=== PATIENT | male | born 1945 | race Caucasian/White ===

== ENCOUNTER → 2021-05-31 | Outpatient (CLI) | payer MEDICARE ==
--- NOTE | 2021-05-31 18:50 | CT ---
EXAMINATION TYPE: CT CervThoracic spine wo con DATE OF EXAM: 05/31/2021 COMPARISON: None HISTORY: Neck and back pain x 1 year with unsteady gait. TECHNIQUE: CT scan of the cervical and thoracic spine performed without contrast CT DLP: 1089 mGycm Automated exposure control for dose reduction was used. FINDINGS: The craniocervical junction is acutely maintained. Degenerative changes are present at the atlantoocc ipital and intra-axial joints. Cervical and thoracic curvatures are mildly scoliotic with preservation of cervical lordosis. There i s anterior translation of C4 over C5. There is slight posterior translation of C3 over C4. There is moderate to severe narrowing of the intervertebral spaces in the cervical spine extending fr om C3 through T1. This is most severe at C3-4, C5-6 and C6-7. There is mild bony spinal canal stenosi s at C5 and C6, the spinal canal at that level measures about 8 mm in AP dimension. There are disc os teophyte complexes at C3-4, C4-5, C5-6, C6-7 and C7-T1. There is also uncovertebral facet joint arthr opathy throughout the cervical spine. There is moderate severe narrowing of multiple bilateral neural foramina in the cervical spine which appears to be most severe bilaterally at C3-4 and C4-5. The thoracic spine intervertebral spaces are mildly to moderately narrowed throughout and there are b shanita spurs along the ventral aspect of the thoracic spine. No significant bony spinal canal stenosis i s seen in the thoracic spine. Mild facet joint arthropathy changes are seen in the mid and lower thor acic spine. The posterior soft tissue is without significant inflammation or edema. The prevertebral soft tissues are normal in thickness. Included airways are patent. Subsegmental atelectatic changes are seen in the included lungs. Heart does not appear to be enlarged. Coronary arterial calcifications are noted. The thyroid gland is not enlarged. Atherosclerotic calcifications are seen in the intrathoracic and abdominal aorta. The esophagus within the mid and upper chest has a thickened wall and a circumferential manner. There is a small gastroesophageal hiatal hernia. There are calcific plaques in the bilateral carotid arteries suboptimal evaluation due to lack of co ntrast. The right kidney is suboptimal in evaluation however appears enlarged. IMPRESSION: 1. MODERATE SEVERE DEGENERATIVE CHANGES IN THE CERVICAL AND THORACIC SPINE DESCRIBED IN BODY OF RE PORT. 2. RIGHT KIDNEY APPARENT ENLARGEMENT SUBOPTIMAL IN EVALUATION, CORRELATION WITH RENAL ULTRASOUND SILVA MMENDED FOR FURTHER EVALUATION.
== END | disposition home or self-care (01) ==
LOC: RADCTMAIN 14:35
PROVIDERS: ATTEND Orthopaedic Surgery
DX: M47.812 Spondylosis without myelopathy or radiculopathy, cervical region (principal); M47.814 Spondylosis without myelopathy or radiculopathy, thoracic region
CPT/HCPCS: 72125; 72128

== ENCOUNTER → 2021-07-02 | Outpatient (CLI) | payer MEDICARE ==
--- NOTE | 2021-07-02 10:51 | XR ---
EXAMINATION TYPE: XR chest 2V DATE OF EXAM: 07/02/2021 COMPARISON: none HISTORY: Shortness of breath TECHNIQUE: Frontal and lateral views of the chest are obtained. FINDINGS: Scattered senescent parenchymal changes noted. Hyperinflation compatible with COPD. No evidence for infiltrate. No evidence for atelectasis. Heart size is stable. Mediastinal structures are stable and grossly unremarkable. No evidence for hilar prominence. Degenerative changes dorsal spine. IMPRESSION: 1. No evidence for acute pulmonary disease.
== END | disposition home or self-care (01) ==
LOC: LABPAT 10:06
PROVIDERS: ATTEND Orthopaedic Surgery
DX: Z01.818 Encounter for other preprocedural examination (principal); M50.00 Cervical disc disorder with myelopathy, unspecified cervical region; M43.12 Spondylolisthesis, cervical region; R06.02 Shortness of breath; Z22.322 Carrier or suspected carrier of Methicillin resistant Staphylococcus aureus
CPT/HCPCS: 71046; 86850; 86900; 86901; 87070

== ENCOUNTER 2021-07-10 07:30 | Inpatient (IN) | payer MEDICARE ==
[2021-07-06 16:12] VITALS: BMI 27.3
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
[2021-07-16] MEDS ORDERED: DEXAMETHASONE SOD PHOSPHATE 4 MG/ML 1 ML VIAL IV ONE (15:21)
[2021-07-16] MEDS ORDERED: ONDANSETRON 4 MG/2 ML VIAL IVP ONE (15:21)
[2021-07-17] MEDS ORDERED: ACETAMINOPHEN TAB 500 MG TAB PO PRN (05:00)
[2021-07-17] MEDS ORDERED: ONDANSETRON 4 MG/2 ML VIAL IVP PRN (05:00)
[2021-07-17] MEDS ORDERED: GABAPENTIN 300 MG CAP PO PRN (05:00)
[2021-07-17] MEDS ORDERED: TRANEXAMIC ACID 1,000 MG in SODIUM CHLORIDE 0.9% 100 ML IVPB PRN ×4 (05:00)
[2021-07-17] MEDS ORDERED: LIDOCAINE 1% (10MG/ML) FOR IV START INTRADERMA ONE ×2 (06:45→06:50)
[2021-07-17] MEDS: LACTATED RINGERS 1,000 ML IV SCH ×2 (06:58→18:17)
[2021-07-17] MEDS ORDERED: HYDROmorphone 0.5 MG/0.5 ML SYRINGE IVP PRN ×2 (07:00→17:40)
--- NOTE | 2021-07-17 07:28 | P.PN ---
Progress Note - Text Progress Note Date: 07/17/21 H&P UPDATE: There have been no changes to the H&P in the last 30 days. Pt continues to have difficulty with ambulation, cannot hold on to objects, is off balance and is having today positive Lehermettes sign with electric shocks down his spine when he moves his neck. We discussed risks and benefits again of surgery as outlined in risk review and he is ready and willing to proceed. He will get arterial line and central line by anesthesia. HIs is in waiting room and will be here for him. We discussed ICU stay overnight and he was agreeable. All questions were answered. Consent was confirmed, we will perform anterior C3-7 ACDF and posterior C2-T4 decompression and fusion. He agreed.
[2021-07-17] MEDS ORDERED: fentaNYL (PF) 50 MCG/ML 2 ML AMP ONE (07:37)
[2021-07-17] MEDS ORDERED: HYDROmorphone (PF) 1 MG/ML ONE (07:37)
[2021-07-17] MEDS ORDERED: ceFAZolin 1,000 MG VIAL ONE (07:37)
[2021-07-17] MEDS ORDERED: GLYCOPYRROLATE 0.2 MG/ML 2 ML VIAL ONE (07:37)
[2021-07-17] MEDS ORDERED: PROPOFOL 10 MG/ML 20 ML VIAL IV ONE (07:37)
[2021-07-17] MEDS ORDERED: DEXAMETHASONE SOD PHOSPHATE 10 MG/ML 1 ML VIAL ONE (07:37)
[2021-07-17] MEDS ORDERED: ROCURONIUM 10 MG/ML (5 ML VIAL) IV ONE (07:37)
[2021-07-17] MEDS ORDERED: PHENYLEPHRINE-0.9% NACL SYG 1,000 MCG/10 ML SYRINGE ONE (07:37)
[2021-07-17] MEDS ORDERED: ePHEDrine SULFATE/0.9% NACL/PF 50 MG/5 ML SYRINGE IV ONE (07:37)
[2021-07-17] MEDS ORDERED: SUCCINYLCHOLINE CHLORIDE 100 MG/5 ML SYR IV ONE (07:37)
[2021-07-17] MEDS ORDERED: TRANEXAMIC ACID 1,000 MG/10 ML VIAL ONE (07:37)
[2021-07-17] MEDS ORDERED: MIDAZOLAM 2 MG/2 ML VIAL ONE (07:37)
[2021-07-17] MEDS ORDERED: ENALAPRILAT 1.25 MG/ML 1 ML VIAL ONE (07:37)
[2021-07-17] MEDS ORDERED: KETAMINE 10 MG/ML 20 ML VIAL ONE (07:37)
[2021-07-17] MEDS ORDERED: ALBUMIN HUMAN 5% (25gm) 500 ML VIAL IVPB ONE (07:37)
[2021-07-17] MEDS ORDERED: SODIUM CHLORIDE 0.9% 100 ML BAG ONE ×2 (07:37)
[2021-07-17] MEDS ORDERED: THROMBIN (BOVINE) 5,000 UNIT VIAL MISCELLANE ONE (09:17)
[2021-07-17] MEDS ORDERED: GELATIN SPONGE,ABSORB (LARGE) 1 EACH SPONGE MISCELLANE ONE (09:17)
[2021-07-17] MEDS ORDERED: LACTATED RINGERS 1,000 ML IV ONE ×7 (09:22→17:21)
[2021-07-17 10:15] LABS: Basophils % (A) 0 %; Eosinophils # (A) 0.1 k/uL (0-0.7); Eosinophils % (A) 1 %; HCT 34.2 % (39.0-53.0); HGB 12.3 gm/dL (13.0-17.5); Hyperchromasia Slight; Lymphocytes # (A) 1.2 k/uL (1.0-4.8); Lymphocytes % (A) 16 %; MCH 31.4 pg (25.0-35.0); MCV 87.2 fL (80.0-100.0); Mean Platelet Volume 7.4; Monocytes # (A) 0.4 k/uL (0-1.0); Monocytes % (A) 5 %; Neutrophils # (A) 5.8 k/uL (1.3-7.7); Neutrophils % (A) 77 %; Platelet Count 234 k/uL (150-450); RBC 3.93 m/uL (4.30-5.90); RDW 13.8 % (11.5-15.5); WBC 7.6 k/uL (3.8-10.6)
[2021-07-17 10:19] LABS: African American GFR (CKD) >90 (>60 ml/min/1.73 sqM); Anion Gap 7 mmol/L; Blood Urea Nitrogen 12 mg/dL (9-20); Calcium 8.9 mg/dL (8.4-10.2); Carbon Dioxide 22 mmol/L (22-30); Chloride 110 mmol/L (98-107); Glucose 149 mg/dL (74-99); Non-African American GFR(CKD) >90 (>60 ml/min/1.73 sqM); Potassium 3.6 mmol/L (3.5-5.1); Sodium 139 mmol/L (137-145)
--- NOTE | 2021-07-17 12:56 | FL ---
EXAMINATION TYPE: FL guidance operating room, XR cervical spine limited DATE OF EXAM: 07/17/2021 FLUOROSCOPY Fluoroscopy time of 1 minute 6 seconds was used during ACDF. 11 images document the procedure. Multip le fluoroscopic images are obtained. Metallic instrument is initially noted at the anterior C4-C5 dis c interspace than with ACDF placed between C3 C3-C6 levels.
[2021-07-17] MEDS ORDERED: LIDOCAINE 2%-EPI 1:100,000 20 ML VIAL SQ ONE (13:15)
[2021-07-17 15:27] LABS: ABG Base Excess -7.8 mmol/L; ABG HCO3 19 mmol/L (21-25); ABG Oxygen Saturation 95.5 % (94-97); ABG PCO2 40 mmHg (35-45); ABG PH 7.29 (7.35-7.45); ABG PO2 80 mmHg (83-108); ABG TCO2 20 mmol/L (19-24); Allen Test Performed? Yes
[2021-07-17] MEDS ORDERED: ceFAZolin 1,000 MG in SODIUM CHLORIDE 0.9% 1,000 ML IRRIGATION ONE (15:31)
[2021-07-17 15:32] LABS: Basophils % (A) 0 %; Eosinophils % (A) 0 %; HCT 28.8 % (39.0-53.0); HGB 10.3 gm/dL (13.0-17.5); Hyperchromasia Slight; Lymphocytes # (A) 0.8 k/uL (1.0-4.8); Lymphocytes % (A) 6 %; MCH 31.4 pg (25.0-35.0); MCHC 35.7 g/dL (31.0-37.0); MCV 87.8 fL (80.0-100.0); Mean Platelet Volume 7.2; Monocytes # (A) 0.5 k/uL (0-1.0); Monocytes % (A) 4 %; Neutrophils # (A) 11.2 k/uL (1.3-7.7); Neutrophils % (A) 89 %; Platelet Count 233 k/uL (150-450); RBC 3.28 m/uL (4.30-5.90); RDW 13.7 % (11.5-15.5); WBC 12.5 k/uL (3.8-10.6)
[2021-07-17] MEDS ORDERED: VANCOMYCIN 1,000 MG VIAL MISCELLANE ONE (15:54)
[2021-07-17] MEDS ORDERED: SENNOSIDES-DOCUSATE SODIUM 1 EACH TAB PO PRN (17:40)
[2021-07-17] MEDS ORDERED: propofoL 100 ML IV ONE (17:48)
--- NOTE | 2021-07-17 18:02 | FL ---
EXAMINATION TYPE: FL guidance operating room DATE OF EXAM: 07/17/2021 FLUOROSCOPY Fluoroscopy time of 1 minute 49 seconds was used during cervical fusion. 11 image/s document/s the raf wade.
[2021-07-17 18:04] LABS: Glucose,Whole Blood 196 mg/dL (75-99)
--- NOTE | 2021-07-17 18:27 | P.PN ---
Progress Note - Text Progress Note Date: 07/17/21 Brief Post Op: Surgeon: Zofia Pre op dx; cervical myelopathy severe cervical stenosis cervical spondylosis Post op dx: Same Procedure: Stage I anterior cervical discectomy and fusion C3 to C6. stage II posterior cervical decompression fusion C2 to T2 Anesthesia: GETA EBL: 500 Fluids: 5000 UO: 500 Dispo: Stable to ICU Post op Plan: Patient to remain intubated overnight for prolonged recovery and extubation in the morning as well as for blood pressure control Maintain MAPs above 80 ICU management Post operative noncontrasted CT scan once extubated Encourage ambulation tomorrow IS 10x/hr Teds/SCDs Pain control Hard cervical collar at all times Record Drain output
--- NOTE | 2021-07-17 18:30 | XR ---
EXAMINATION TYPE: XR chest 1V portable DATE OF EXAM: 07/17/2021 COMPARISON: 07/02/2021 HISTORY: Preop TECHNIQUE: Single view FINDINGS: Heart and mediastinum are normal. There is some linear consolidation and atelectasis behind the heart in the left lower lobe. The other lung mack are clear. There is left jugular catheter wi th tip in the superior vena cava. There is multilevel cervical spine fusion surgery. There are chest leads. IMPRESSION: There is some new linear infiltrate and atelectasis left lower lobe compared to old exam.
[2021-07-17] MEDS ORDERED: DEXAMETHASONE SOD PHOSPHATE 10 MG/ML 1 ML VIAL IV PRN (18:32)
[2021-07-17 18:56] LABS: ABG Base Excess -3.6 mmol/L; ABG HCO3 22 mmol/L (21-25); ABG Oxygen Saturation 97.1 % (94-97); ABG PCO2 37 mmHg (35-45); ABG PH 7.38 (7.35-7.45); ABG PO2 83 mmHg (83-108); ABG TCO2 23 mmol/L (19-24); Allen Test Performed? Yes
--- NOTE | 2021-07-17 19:09 | XR ---
EXAMINATION TYPE: XR cervical spine limited DATE OF EXAM: 07/17/2021 COMPARISON: NONE HISTORY: Fusion surgery TECHNIQUE: 9 views FINDINGS: 9 fluoroscopic images were obtained in the operating room that show placement of rods and s crews fusing posteriorly the cervical spine from the level of C2-T1 vertebra. IMPRESSION: No complicating process seen.
[2021-07-17] MEDS: DEXAMETHASONE SOD PHOSPHATE 10 MG/ML 1 ML VIAL IV SCH (19:12)
[2021-07-17] MEDS: HYDROmorphone 1 MG/ML 1 ML SYRINGE IVP PRN ×2 (19:13→22:05)
[2021-07-17] MEDS: GABAPENTIN 300 MG CAP PO SCH (21:18)
[2021-07-17] MEDS: HYDROcodone/APAP 10-325MG 1 EACH TAB PO PRN (21:33)
--- NOTE | 2021-07-17 22:06 | XR ---
EXAMINATION TYPE: XR chest 1V portable DATE OF EXAM: 07/17/2021 COMPARISON: Today HISTORY: Tube placed TECHNIQUE: FINDINGS: Endotracheal tube is 6 cm from the siobhan. There is nasogastric tube in the stomach. There is left ju gular catheter with tip in the superior vena cava. There is some infiltrate and atelectasis behind th e heart in the left lower lobe. Right lung is clear. There is no heart failure. IMPRESSION: Infiltrate and atelectasis left lower lobe without change.
[2021-07-17] MEDS: fentaNYL (PF). 1,000 MCG in SODIUM CHLORIDE 0.9% 80 ML IV SCH (23:27)
[2021-07-17 23:50] LABS: Glucose,Whole Blood 176 mg/dL (75-99)
[2021-07-18] MEDS: INSULIN ASPART (NovoLOG) 100 UNIT/ML VIAL SQ SCH ×4 (00:06→18:57)
[2021-07-18] MEDS: DEXAMETHASONE SOD PHOSPHATE 10 MG/ML 1 ML VIAL IV SCH ×4 (00:07→18:32)
[2021-07-18] MEDS: hydrALAZINE HCL 20 MG/ML 1 ML VIAL IVP PRN ×2 (01:08→13:27)
[2021-07-18] MEDS: fentaNYL (PF). 1,000 MCG in SODIUM CHLORIDE 0.9% 80 ML IV SCH ×2 (03:00→06:55)
--- NOTE | 2021-07-18 04:30 | CT ---
EXAMINATION TYPE: CT cervical spine wo con DATE OF EXAM: 07/18/2021 COMPARISON: HISTORY: Fusion surgery. CT DLP: 2115 mGycm Automated exposure control for dose reduction was used. Images obtained from the level of the skull base to T2 vertebra without contrast. There are rods and screws fusing posteriorly the cervical spine from the level of C2-T2 vertebra. The vertebra have normal alignment. There is narrowing of the C6-7 disc space. There is disc prosthesis noted at C3-4 and C4-5 and C5-6. I see no focal bone destruction. Vertebra have normal alignment. The re is endotracheal tube. There is no evidence of paraspinal mass. Exam limited by metal artifact. The re is multilevel laminectomy defect. There is some soft tissue air around the anterior neck and poste rior neck. There is infiltrate in the right upper lobe right paraspinal region noted. IMPRESSION: Postsurgical changes. Multilevel fusion surgery. Normal alignment. No focal bone destruction. There is noted some airspace infiltrate in the medial right upper lobe.
--- NOTE | 2021-07-18 04:38 | CT ---
EXAMINATION TYPE: CT thoracic spine wo con DATE OF EXAM: 07/18/2021 COMPARISON: 05/31/2021 HISTORY: s/p c2-t2 decompression fusion CT DLP: 2115 mGycm Automated exposure control for dose reduction was used. Images obtained from mid cervical spine through L1 vertebra without contrast. Thoracic vertebra have normal alignment. There is no compression fracture. There is multilevel senior mechanical project engineer ior fusion surgery in the cervical and thoracic spine from C2 to T2. There is metal artifact. There i s bilateral posterior pulmonary airspace infiltrates and atelectasis. I see no focal bone destruction . IMPRESSION: Fusion surgery in the cervical and upper thoracic spine. No complicating process seen involving the s pine. There is bilateral posterior pulmonary infiltrates and atelectasis.
[2021-07-18 04:49] LABS: Basophils % (A) 0 %; Eosinophils % (A) 0 %; HCT 29.6 % (39.0-53.0); HGB 10.4 gm/dL (13.0-17.5); Hyperchromasia Slight; Lymphocytes # (A) 0.4 k/uL (1.0-4.8); Lymphocytes % (A) 5 %; MCH 30.8 pg (25.0-35.0); MCHC 35.1 g/dL (31.0-37.0); MCV 87.9 fL (80.0-100.0); Mean Platelet Volume 8.3; Monocytes # (A) 0.2 k/uL (0-1.0); Monocytes % (A) 3 %; Neutrophils # (A) 8.5 k/uL (1.3-7.7); Neutrophils % (A) 93 %; Platelet Count 200 k/uL (150-450); RBC 3.36 m/uL (4.30-5.90); RDW 13.9 % (11.5-15.5); WBC 9.2 k/uL (3.8-10.6)
[2021-07-18 05:09] LABS: ABG Base Excess 1.9 mmol/L; ABG HCO3 26 mmol/L (21-25); ABG Oxygen Saturation 98.5 % (94-97); ABG PCO2 41 mmHg (35-45); ABG PH 7.42 (7.35-7.45); ABG PO2 97 mmHg (83-108); ABG TCO2 28 mmol/L (19-24); Allen Test Performed? Yes
[2021-07-18 05:39] LABS: Glucose,Whole Blood 164 mg/dL (75-99)
[2021-07-18 06:10] LABS: ALT 19 U/L (4-49); AST 30 U/L (17-59); African American GFR (CKD) >90 (>60 ml/min/1.73 sqM); Albumin 3.3 g/dL (3.5-5.0); Alkaline Phosphatase 54 U/L (38-126); Anion Gap 8 mmol/L; Blood Urea Nitrogen 10 mg/dL (9-20); Calcium 9.1 mg/dL (8.4-10.2); Carbon Dioxide 25 mmol/L (22-30); Chloride 107 mmol/L (98-107); Glucose 155 mg/dL (74-99); Non-African American GFR(CKD) >90 (>60 ml/min/1.73 sqM); Potassium 3.4 mmol/L (3.5-5.1); Sodium 140 mmol/L (137-145); Total Bilirubin 0.2 mg/dL (0.2-1.3); Total Protein 5.8 g/dL (6.3-8.2)
[2021-07-18] MEDS ORDERED: Potassium Replacement Protocol 1 EACH MISC MISCELLANE PRN (06:56)
[2021-07-18] MEDS: POTASSIUM BICARBONATE/CIT AC 20 MEQ TABLET.EFF NG-TUBE SCH ×2 (07:16→08:38)
--- NOTE | 2021-07-18 07:50 | P.PN ---
Subjective Progress Note Date: 07/18/21 Principal diagnosis: Cervical Myelopathy Patient seen and examined this morning with nursing at bedside is still sedated on fentanyl at this time however is currently being weaned from his vital cassandra needs. He is breathing and is on otherwise. Nursing states he did fairly well overnight some for blood pressure control issues however other than that he did well. Nursing states is moving all 4 extremities and is currently restrained and strength on his tube. Other issues overnight. Objective - Vital Signs Vital signs: Vital Signs Temp 97.9 F 07/18/21 04:00 Pulse 57 L 07/18/21 07:00 Resp 17 07/18/21 07:00 BP 135/70 07/18/21 07:00 Pulse Ox 97 07/18/21 07:00 Intake & Output 07/17/21 07/18/21 07/18/21 18:59 06:59 18:59 Intake Total 7127.607 654.159 59.499 Output Total 1130 2190 135 Balance 5997.607 -1535.841 -75.501 Weight 87.7 kg Intake: IV 7121 270 20 Lactated Ringers 1,000 ml 20 220 20 @ 20 mls/hr IV .Q24H [facility] Rx#:[id number] ceFAZolin 2 gm In Sodium 50 50 Chloride 0.9% 50 ml @ 100 mls/hr IVPB Q8HR [facility] Rx# :[id number] Intake, IV Titration 6.607 384.159 9.499 Amount fentaNYL (PF). 1,000 mcg 166.921 9.499 In Sodium Chloride 0.9% 80 ml @ 0.5 MCG/KG/HR 4. 13 mls/hr IV .Q24H [facility] Rx #:[id number] propofoL 1,000 mg In 6.607 217.238 Empty Bag 1 bag @ Titrate IV .Q0M [facility] Rx#: [id number] Other 30 Output: Drainage 150 60 Anterior Neck 40 10 Posterior Neck 110 50 Urine 580 2040 75 Estimated Blood Loss 550 Other: Voiding Method Indwelling Catheter ABP, PAP, CO, CI - Last Documented Arterial Blood Pressure 151/59 - Exam Patient is vented and sedated currently. Not following commands however he is about to be weaned from sedation at which point we can obtain and exam. Vital signs are currently stable - EENT Eyes: Present: PERRLA - Labs CBC & Chem 7: 07/18/21 04:26 07/18/21 04:26 Labs: Abnormal Lab Results - Last 24 Hours (Table) 07/17/21 07/17/21 07/17/21 Range/Units 09:20 09:20 15:18 WBC (3.8-10.6) k/uL RBC 3.93 L (4.30-5.90) m/uL Hgb 12.3 L (13.0-17.5) gm/dL Hct 34.2 L (39.0-53.0) % Neutrophils # (1.3-7.7) k/uL Lymphocytes # (1.0-4.8) k/uL ABG pH 7.29 L (7.35-7.45) ABG pO2 80 L (83-108) mmHg ABG HCO3 19 L (21-25) mmol/L ABG Total CO2 (19-24) mmol/L ABG O2 Saturation (94-97) % Potassium (3.5-5.1) mmol/L Chloride 110 H (98-107) mmol/L Creatinine 0.60 L (0.66-1.25) mg/dL Glucose 149 H (74-99) mg/dL POC Glucose (mg/dL) (75-99) mg/dL Total Protein (6.3-8.2) g/dL Albumin (3.5-5.0) g/dL 07/17/21 07/17/21 07/17/21 Range/Units 15:21 18:02 18:49 WBC 12.5 H (3.8-10.6) k/uL RBC 3.28 L (4.30-5.90) m/uL Hgb 10.3 L (13.0-17.5) gm/dL Hct 28.8 L (39.0-53.0) % Neutrophils # 11.2 H (1.3-7.7) k/uL Lymphocytes # 0.8 L (1.0-4.8) k/uL ABG pH (7.35-7.45) ABG pO2 (83-108) mmHg ABG HCO3 (21-25) mmol/L ABG Total CO2 (19-24) mmol/L ABG O2 Saturation 97.1 H (94-97) % Potassium (3.5-5.1) mmol/L Chloride (98-107) mmol/L Creatinine (0.66-1.25) mg/dL Glucose (74-99) mg/dL POC Glucose (mg/dL) 196 H (75-99) mg/dL Total Protein (6.3-8.2) g/dL Albumin (3.5-5.0) g/dL 07/17/21 07/18/21 07/18/21 Range/Units 23:49 04:26 04:26 WBC (3.8-10.6) k/uL RBC 3.36 L (4.30-5.90) m/uL Hgb 10.4 L (13.0-17.5) gm/dL Hct 29.6 L (39.0-53.0) % Neutrophils # 8.5 H (1.3-7.7) k/uL Lymphocytes # 0.4 L (1.0-4.8) k/uL ABG pH (7.35-7.45) ABG pO2 (83-108) mmHg ABG HCO3 (21-25) mmol/L ABG Total CO2 (19-24) mmol/L ABG O2 Saturation (94-97) % Potassium 3.4 L (3.5-5.1) mmol/L Chloride (98-107) mmol/L Creatinine 0.56 L (0.66-1.25) mg/dL Glucose 155 H (74-99) mg/dL POC Glucose (mg/dL) 176 H (75-99) mg/dL Total Protein 5.8 L (6.3-8.2) g/dL Albumin 3.3 L (3.5-5.0) g/dL 07/18/21 07/18/21 Range/Units 05:07 05:38 WBC (3.8-10.6) k/uL RBC (4.30-5.90) m/uL Hgb (13.0-17.5) gm/dL Hct (39.0-53.0) % Neutrophils # (1.3-7.7) k/uL Lymphocytes # (1.0-4.8) k/uL ABG pH (7.35-7.45) ABG pO2 (83-108) mmHg ABG HCO3 26 H (21-25) mmol/L ABG Total CO2 28 H (19-24) mmol/L ABG O2 Saturation 98.5 H (94-97) % Potassium (3.5-5.1) mmol/L Chloride (98-107) mmol/L Creatinine (0.66-1.25) mg/dL Glucose (74-99) mg/dL POC Glucose (mg/dL) 164 H (75-99) mg/dL Total Protein (6.3-8.2) g/dL Albumin (3.5-5.0) g/dL Assessment and Plan Assessment: 75-year-old male postoperative day 1 from two-stage anterior and posterior cervical fusion and decompression 1. C3-4; C4-5; C5-6 unstable spondylolisthesis 2. 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 Cervical myelopathy Nurick Grade 3 4. b/l UE weakness and radiculopathy 5. L4-5 spondylolisthesis Grade I unstable 6. .RLE radiculopathy 7. B/l LE weakness 8. Unsteady gait Plan: -Appreciate learning and development consultant and team management. -Appreciate ICU management -Activity: Ambulate QID, OOB all meals, up and about, limit lifting bending twisting to less than 5 lbs. Use walker or cane if needed for stability. -Daily PT/OT, increase ambulation strength and balance. -Hard cervical collar at all times when up and about okay to remove just sit ting in bed -Pain control: [Adequate at this time] -Meds: [reviewed] -GI ppx: senna, Miralax -DC arango when up and about, bedside commode if needed -DVT PPX: [OK to restart Heparin tonight] -Hygiene: Shower today. Maintain dressing clean and dry. Meticulous cleaning after BMs away from incision site -Drains: [Maintain for now. Record output] -Encourage IS 10x/hr -CT of the cervical and thoracic spine is reviewed. Good decompression and good hardware placement. Good reduction spondylolisthesis noted as well. No complicating issues noted -Dispo: [Pending]
[2021-07-18] MEDS: HYDROmorphone 1 MG/ML 1 ML SYRINGE IVP PRN ×4 (08:29→20:13)
[2021-07-18] MEDS: GABAPENTIN 300 MG CAP PO SCH ×2 (08:39→19:46)
--- NOTE | 2021-07-18 08:46 | XR ---
EXAMINATION TYPE: XR chest 1V portable DATE OF EXAM: 07/18/2021 HISTORY: Shortness of breath. COMPARISON: 07/17/2021 TECHNIQUE: Single view of the chest is submitted. FINDINGS: Endotracheal tube, left IJ central venous line and NG tube are all unchanged in position and appear t o be appropriately placed. Left lower lobe atelectasis and/or infiltrate unchanged. The heart is stable. Hilar and mediastinal structures are within normal limits. Degenerative changes are seen of the dorsal spine. IMPRESSION: 1. Stable chest.
[2021-07-18] MEDS: CYCLOBENZAPRINE 10 MG TAB PO PRN ×2 (09:31→18:32)
[2021-07-18] MEDS ORDERED: IPRATROPIUM-ALBUTEROL 3 ML NEB INHALATION PRN (10:04)
--- NOTE | 2021-07-18 10:05 | P.CNPUL ---
History of Present Illness Consult date: 07/18/21 Requesting physician: Gaurang Armijo Reason for consult: other Chief complaint: Severe spondylosis cervical spine, s/p cervical discectomy and decompressio History of present illness: 75-year-old white male patient with past medical history of severe spondylosis of the cervical spine with deformity and kyphosis of C3-7, with a bilateral upper extremity weakness and radiculopathy, unsteady gait, and a bilateral lower extremity weakness, status post anterior stage I cervical 3 to cervical 6 anterior cervical discectomy and fusion, and stage II cervical to to thoracic 2 posterior spinal instrumental fusion, who was admitted to the intensive care unit following surgery, and remained intubated and supported by mechanical ventilator overnight. His other past medical history is significant for hypertension, hyperlipidemia, osteoarthritis, spinal stenosis of lumbar region, depression, prostate disorder, former smoking history. Patient has had no acute events overnight, his current vent settings are assist control mode of ventilation with a rate of 16, tidal and was 450, FiO2 40% and PEEP of 5, this morning's blood gas shows pO2 of 97, pCO2 41, and pH of 7.42. Patient is on lactated Ringer's at 20 ML per hour, Diprivan is a 20 mics per kilo per minute, and fentanyl infusion is at 2 mics per kilo per minute. He is hemodynamically stable, not requiring any vasopressor support, in sinus mechanism with a rate of 57, this morning's chest x-ray shows ET tube, left IJ triple-lumen catheter and NG tube in appropriate positions, left lower lobe atelectasis and/or infiltrate, and degenerative changes seen of the dorsal spine. CT of the cervical spine was completed this morning, showing postsurgical changes, multilevel fusion surgery, normal alignment, no focal bone destruction, and some airspace infiltrate in the medial right upper lobe. CT of the thoracic spine without contrast showed fusion surgery in the cervical and upper thoracic spine no complicating process seen involving the spine, there were bilateral posterior pulmonary infiltrates and atelectasis. Today's blood work shows a white blood cell count of 9.2, hemoglobin is 10.4, sodium is 140, potassium is 3.4, chloride is 107, BUN of 10, creatinine 0.56. Patient has a cervical collar in place, anterior and posterior surgical incisions are clean dry and intact, covered with surgical dressings, anterior drain produced 40 mL of sanguinous output in the last 24 hours, and posterior drain with 110 of sanguinous output in the last 24 hours, urine output is adequate in the order of 75 250 ML per hour. Patient is receiving Kefzol 2 g every 24 hours per orthopedic surgery. Patient is opening eyes to voice, he is following command, he is having some discomfort and anxiety, appears to be in no acute distress. We will proceed with the weaning and extubation this morning Review of Systems All systems: negative Constitutional: Denies chills, Denies fever Eyes: denies blurred vision, denies pain Ears, nose, mouth and throat: Denies headache, Denies sore throat Cardiovascular: Denies chest pain, Denies shortness of breath Respiratory: Denies cough Gastrointestinal: Denies abdominal pain, Denies diarrhea, Denies nausea, Denies vomiting Musculoskeletal: Reports arm numbness/tingling, Reports gait dysfunction, Denies myalgias Integumentary: Denies pruritus, Denies rash Neurological: Denies numbness, Denies weakness Psychiatric: Denies anxiety, Denies depression Endocrine: Denies fatigue, Denies weight change Past Medical History Past Medical History: Hyperlipidemia, Hypertension, Osteoarthritis (OA), Prostate Disorder Additional Past Medical History / Comment(s): Enlarged Prostate. History of Any Multi-Drug Resistant Organisms: None Reported Past Surgical History: Tonsillectomy Past Anesthesia/Blood Transfusion Reactions: No Reported Reaction Past Psychological History: No Psychological Hx Reported Smoking Status: Former smoker Past Alcohol Use History: None Reported Additional Past Alcohol Use History / Comment(s): Quit smoking in his 20's. Past Drug Use History: Marijuana Additional Drug Use History / Comment(s): Daily Marijuana use, advised no use 24 hrs prior to procedure. - Past Family History Father Family Medical History: Cancer Medications and Allergies Home Medications Medication Instructions Recorded Confirmed Type Calcium Carbonate [Calcium] 1,000 mg PO DAILY 07/06/21 07/17/21 History Cholecalciferol [Vitamin D3 (25 25 mcg PO DAILY 07/06/21 07/17/21 History Mcg = 1000 Iu)] DULoxetine HCL [Cymbalta] 30 mg PO DAILY 07/06/21 07/17/21 History Ezetimibe [Zetia] 10 mg PO DAILY 07/06/21 07/17/21 History Ibuprofen [Motrin] 800 mg PO Q8H PRN 07/06/21 07/17/21 History Pravastatin Sodium [Pravachol] 10 mg PO HS 07/06/21 07/17/21 History Tamsulosin [Flomax] 0.4 mg PO HS 07/06/21 07/17/21 History amLODIPine [Norvasc] 10 mg PO QAM 07/06/21 07/17/21 History traMADol HCL 50 mg PO TID PRN 07/06/21 07/17/21 History Allergies Allergy/AdvReac Type Severity Reaction Status Date / Time codeine AdvReac Nausea & Verified 07/17/21 06:20 Vomiting Physical Exam Vitals: Vital Signs Temp Pulse Resp BP Pulse Ox 07/18/21 09:00 58 L 16 142/71 95 07/18/21 08:00 98.4 F 57 L 17 136/72 98 07/18/21 07:00 57 L 17 135/70 97 07/18/21 06:00 56 L 17 124/66 97 07/18/21 05:00 57 L 16 114/66 97 07/18/21 04:00 97.9 F 60 18 134/69 98 07/18/21 03:00 58 L 16 137/71 98 07/18/21 02:00 64 18 97 07/18/21 01:00 60 21 165/85 98 07/18/21 00:00 98.6 F 68 16 165/88 97 07/17/21 23:00 67 18 162/87 97 07/17/21 22:00 70 18 157/82 97 07/17/21 21:00 63 16 148/80 97 07/17/21 20:00 98 F 61 16 125/71 97 07/17/21 19:50 60 16 97 07/17/21 19:40 57 L 18 97 07/17/21 19:30 59 L 16 97 07/17/21 19:20 56 L 16 97 07/17/21 19:10 54 L 15 125/71 98 07/17/21 19:00 97.6 F 54 L 15 122/72 97 07/17/21 18:50 55 L 15 97 07/17/21 18:40 55 L 14 96 07/17/21 18:30 57 L 14 118/66 96 07/17/21 18:20 57 L 15 96 07/17/21 18:10 96.0 F L 56 L 14 95 Intake and Output 07/17/21 07/18/21 07/18/21 22:59 06:59 14:59 Intake Total 1192.123 539.643 147.961 Output Total 1950 1370 135 Balance -757.877 -830.357 12.961 Intake: IV 1131 210 20 Lactated Ringers 1,000 ml 80 160 20 @ 20 mls/hr IV .Q24H [facility] Rx#:[id number] ceFAZolin 2 gm In Sodium 50 50 Chloride 0.9% 50 ml @ 100 mls/hr IVPB Q8HR [facility] Rx# :[id number] Intake, IV Titration 61.123 329.643 97.961 Amount fentaNYL (PF). 1,000 mcg 166.921 9.499 In Sodium Chloride 0.9% 80 ml @ 0.5 MCG/KG/HR 4. 13 mls/hr IV .Q24H [facility] Rx #:[id number] propofoL 1,000 mg In 61.123 162.722 88.462 Empty Bag 1 bag @ Titrate IV .Q0M [facility] Rx#: [id number] Other 30 Output: Drainage 150 60 Anterior Neck 40 10 Posterior Neck 110 50 Urine 1250 1370 75 Estimated Blood Loss 550 Other: Voiding Method Indwelling Catheter Indwelling Catheter Weight 87.7 kg ABP, PAP, CO, CI - Last 8 Hours Arterial Blood Pressure 129/54 Arterial Blood Pressure 155/60 Arterial Blood Pressure 151/59 Arterial Blood Pressure 148/58 Arterial Blood Pressure 137/56 Arterial Blood Pressure 131/54 Arterial Blood Pressure 141/58 Arterial Blood Pressure 145/63 GENERAL EXAM: Somnolent, but opens eyes to voice, 75-year-old white male, intubated, on assist-control mode of ventilation with the FiO2 40% and PEEP of 5, on small amount of Diprivan at 20 mics per kilo per minute, and fentanyl is at 2 mics per kilo per minute comfortable in no apparent distress. HEAD: Normocephalic/atraumatic. EYES: Normal reaction of pupils, equal size. Conjunctiva pink, sclera white. NOSE: Clear with pink turbinates. THROAT: No erythema or exudates. NECK: No masses, no JVD, no thyroid enlargement, no adenopathy. Patient has a cervical collar in place, anterior and posterior surgical incisions are clean dry and , covered with surgical dressings, anterior and posterior drains are in place, compressed and draining with small to moderate amount of sanguinous output CHEST: No chest wall deformity. Symmetrical expansion. LUNGS: Equal air entry with no crackles, wheeze, rhonchi or dullness. CVS: Regular rate and rhythm, normal S1 and S2, no gallops, no murmurs, no rubs ABDOMEN: Soft, nontender. No hepatosplenomegaly, normal bowel sounds, no guarding or rigidity. EXTREMITIES: No clubbing, no edema, no cyanosis, 2+ pulses and upper and lower extremities. MUSCULOSKELETAL: Muscle strength and tone normal. SPINE: No scoliosis or deformity SKIN: No rashes CENTRAL NERVOUS SYSTEM: Sleepy but arousable. No focal deficits, tone is normal in all 4 extremities. Results - Laboratory Findings CBC and BMP: 07/18/21 04:26 07/18/21 04:26 ABG ABG pH 7.42 (7.35-7.45) 07/18/21 05:07 ABG pCO2 41 mmHg (35-45) 07/18/21 05:07 ABG pO2 97 mmHg (83-108) 07/18/21 05:07 ABG O2 Saturation 98.5 % (94-97) H 07/18/21 05:07 Abnormal lab findings: Abnormal Labs 07/17/21 07/17/21 07/17/21 09:20 09:20 15:18 WBC RBC 3.93 L Hgb 12.3 L Hct 34.2 L Neutrophils # Lymphocytes # ABG pH 7.29 L ABG pO2 80 L ABG HCO3 19 L ABG Total CO2 ABG O2 Saturation Potassium Chloride 110 H Creatinine 0.60 L Glucose 149 H POC Glucose (mg/dL) Total Protein Albumin 07/17/21 07/17/21 07/17/21 15:21 18:02 18:49 WBC 12.5 H RBC 3.28 L Hgb 10.3 L Hct 28.8 L Neutrophils # 11.2 H Lymphocytes # 0.8 L ABG pH ABG pO2 ABG HCO3 ABG Total CO2 ABG O2 Saturation 97.1 H Potassium Chloride Creatinine Glucose POC Glucose (mg/dL) 196 H Total Protein Albumin 07/17/21 07/18/21 07/18/21 23:49 04:26 04:26 WBC RBC 3.36 L Hgb 10.4 L Hct 29.6 L Neutrophils # 8.5 H Lymphocytes # 0.4 L ABG pH ABG pO2 ABG HCO3 ABG Total CO2 ABG O2 Saturation Potassium 3.4 L Chloride Creatinine 0.56 L Glucose 155 H POC Glucose (mg/dL) 176 H Total Protein 5.8 L Albumin 3.3 L 07/18/21 07/18/21 05:07 05:38 WBC RBC Hgb Hct Neutrophils # Lymphocytes # ABG pH ABG pO2 ABG HCO3 26 H ABG Total CO2 28 H ABG O2 Saturation 98.5 H Potassium Chloride Creatinine Glucose POC Glucose (mg/dL) 164 H Total Protein Albumin - Diagnostic Findings Chest x-ray: report reviewed, image reviewed Additional studies: CT of the cervical and thoracic spine results reviewed Assessment and Plan Plan: Assessment: #1. Cervical myelopathy, C3-4; C5-6 unstable spondylolisthesis, status post stage I Cervical 3 to Cervical 7 anterior cervical discectomy and fusion, and a stage II cervical to to thoracic for posterior spinal instrumented fusion with a nerve integrity monitoring, postoperative day #1 #2. Routine postoperative ventilator management, we'll proceed with weaning and extubation this morning #3. Unsteady gait, arm weakness, related to cervical spondylolisthesis #4. Hypertension #5. Hyperlipidemia #6. Enlarged prostate #7. Former smoker #8. Daily marijuana use #9. History of major depressive episodes #10. Osteoarthritis Plan: We'll proceed with spontaneous awakening trial Proceed with a spontaneous breathing trial, pressure-support of 5 Patient is having some anxiety, we'll just give him a very short breathing trial, and proceed with extubation Encourage deep breathing and coughing We'll discontinue final infusion May use when necessary Dilaudid for pain control Continue antibiotics per orthopedic surgery Breathing treatments as needed May proceed with clear liquid diet if passes bedside swallow evaluation in 6 hours We'll continue close monitoring in intensive care unit Glucose monitoring every 6 hours and sliding scale Humalog DVT prophylaxis, GI prophylaxis I performed a history & physical examination of the patient and discussed their management with my nurse practitioner, Shelly Charles. I reviewed the nurse practitioner's note and agree with the documented findings and plan of care. Lung sounds are positive for diminished breath sounds throughout the lung mack. The findings and the impression was discussed with the patient. I attest to the documentation by the nurse practitioner. Time with Patient: Greater than 30
[2021-07-18] MEDS ORDERED: ONDANSETRON 4 MG/2 ML VIAL IVP PRN (13:28)
[2021-07-18] MEDS: HYDROcodone/APAP 5-325MG 1 EACH TAB PO PRN (13:40)
[2021-07-18] MEDS: amLODIPine 10 MG TAB PO SCH (13:41)
--- NOTE | 2021-07-18 14:23 | P.CONS ---
History of Present Illness - Reason for Consult Consult date: 07/18/21 (delayed charting seen at 1115) htn Requesting physician: Gaurang Armijo - Chief Complaint neck pain - History of Present Illness Patient is a 75-year-old male with a past medical history of hypertension, dyslipidemia, enlarged prostate, and osteoarthritis who presented for elective C3 through 3 6 4 spondylolisthesis. He is in the ICU and has been extubated. Patient seen and examined at bedside. He report that he is having some neck pain, nausea, vomiting, lightheadedness, and dizziness. He overall doesn't feel well and is terrible. No recent cough, cold, fever, flu Pertinent positives and negatives as discussed in HPI, a complete review of systems was performed and all other systems are negative. General: non toxic, no distress, appears at stated age Derm: warm, dry Head: atraumatic, normocephalic, symmetric Eyes: EOMI, no lid lag, anicteric sclera, pupils equal round reactive to light ENT: Nose and ears atraumatic, no thrush, no pharyngeal erythema Neck: No thyromegaly, no cervical lymphadenopathy, trachea midline, supple Mouth: no lip lesion, mucus membranes moist Cardiovascular: S1S2 reg, no murmur, positive posterior tibial pulse bilateral, trace edema bilateral thighs, capillary refill less than 2 seconds Lungs: clear to ascultation bilateral, no ronchi, no rales, no wheeze, no accessory muscle use Abdominal: soft, nontender to palpation, no guarding, no appreciable organomegaly, normal bowel sounds Ext: Cervical collar in place, no gross muscle atrophy, muscle strength muscle strength 4 out of 5 in bilateral upper and lower extremities likely limited secondary to pain, no contractures Neuro: CN II-XI grossly intact, light touch intact all 4 extremities, finger to nose within normal limits, Psych: Alert, oriented, appropriate affect Patient is a 75-year-old male status post anterior and posterior cervical fusion with decompression Acute blood loss anemia, anticipated and expected outcome of surgery -Follow CBC -No indication for transfusion at this time Hypertension -Mildly elevated secondary to pain -Norvasc - as needed oral hydralazine Dyslipidemia -Pravachol -Zetia BPH -Flomax Thank you for allowing us to participate in the care of this pleasant patient. Do not hesitate to contact us with questions. Someone can be reached from the [facility] hospitalist group all hours of the day at [phone] or via [employer]. Past Medical History Past Medical History: Hyperlipidemia, Hypertension, Osteoarthritis (OA), Prostate Disorder Additional Past Medical History / Comment(s): Enlarged Prostate. History of Any Multi-Drug Resistant Organisms: None Reported Past Surgical History: Tonsillectomy Past Anesthesia/Blood Transfusion Reactions: No Reported Reaction Past Psychological History: No Psychological Hx Reported Smoking Status: Former smoker Past Alcohol Use History: None Reported Additional Past Alcohol Use History / Comment(s): Quit smoking in his 20's. Past Drug Use History: Marijuana Additional Drug Use History / Comment(s): Daily Marijuana use, advised no use 24 hrs prior to procedure. - Past Family History Father Family Medical History: Cancer Medications and Allergies Home Medications Medication Instructions Recorded Confirmed Type Calcium Carbonate [Calcium] 1,000 mg PO DAILY 07/06/21 07/17/21 History Cholecalciferol [Vitamin D3 (25 25 mcg PO DAILY 07/06/21 07/17/21 History Mcg = 1000 Iu)] DULoxetine HCL [Cymbalta] 30 mg PO DAILY 07/06/21 07/17/21 History Ezetimibe [Zetia] 10 mg PO DAILY 07/06/21 07/17/21 History Ibuprofen [Motrin] 800 mg PO Q8H PRN 07/06/21 07/17/21 History Pravastatin Sodium [Pravachol] 10 mg PO HS 07/06/21 07/17/21 History Tamsulosin [Flomax] 0.4 mg PO HS 07/06/21 07/17/21 History amLODIPine [Norvasc] 10 mg PO QAM 07/06/21 07/17/21 History traMADol HCL 50 mg PO TID PRN 07/06/21 07/17/21 History Allergies Allergy/AdvReac Type Severity Reaction Status Date / Time codeine AdvReac Nausea & Verified 07/17/21 06:20 Vomiting Physical Exam Osteopathic Statement: *. No significant issues noted on an osteopathic structural exam other than those noted in the History and Physical/Consult. Vitals: Vital Signs Temp Pulse Resp BP Pulse Ox 07/18/21 12:00 98.6 F 112 H 12 96 07/18/21 11:00 112 H 18 96 07/18/21 10:00 121 H 8 L 92 L 07/18/21 09:00 58 L 16 142/71 95 07/18/21 08:00 98.4 F 57 L 17 136/72 98 07/18/21 07:00 57 L 17 135/70 97 07/18/21 06:00 56 L 17 124/66 97 07/18/21 05:00 57 L 16 114/66 97 07/18/21 04:00 97.9 F 60 18 134/69 98 07/18/21 03:00 58 L 16 137/71 98 07/18/21 02:00 64 18 97 07/18/21 01:00 60 21 165/85 98 07/18/21 00:00 98.6 F 68 16 165/88 97 07/17/21 23:00 67 18 162/87 97 07/17/21 22:00 70 18 157/82 97 07/17/21 21:00 63 16 148/80 97 07/17/21 20:00 98 F 61 16 125/71 97 07/17/21 19:50 60 16 97 07/17/21 19:40 57 L 18 97 07/17/21 19:30 59 L 16 97 07/17/21 19:20 56 L 16 97 07/17/21 19:10 54 L 15 125/71 98 07/17/21 19:00 97.6 F 54 L 15 122/72 97 07/17/21 18:50 55 L 15 97 07/17/21 18:40 55 L 14 96 07/17/21 18:30 57 L 14 118/66 96 07/17/21 18:20 57 L 15 96 07/17/21 18:10 96.0 F L 56 L 14 95 Intake and Output 07/17/21 07/18/21 07/18/21 22:59 06:59 14:59 Intake Total 1192.123 539.643 247.961 Output Total 1950 1370 350 Balance -757.877 -830.357 -102.039 Intake: IV 1131 210 120 Lactated Ringers 1,000 ml 80 160 120 @ 20 mls/hr IV .Q24H [facility] Rx#:[id number] ceFAZolin 2 gm In Sodium 50 50 Chloride 0.9% 50 ml @ 100 mls/hr IVPB Q8HR [facility] Rx# :[id number] Intake, IV Titration 61.123 329.643 97.961 Amount fentaNYL (PF). 1,000 mcg 166.921 9.499 In Sodium Chloride 0.9% 80 ml @ 0.5 MCG/KG/HR 4. 13 mls/hr IV .Q24H [facility] Rx #:[id number] propofoL 1,000 mg In 61.123 162.722 88.462 Empty Bag 1 bag @ Titrate IV .Q0M [facility] Rx#: [id number] Other 30 Output: Drainage 150 60 Anterior Neck 40 10 Posterior Neck 110 50 Urine 1250 1370 290 Estimated Blood Loss 550 Other: Voiding Method Indwelling Catheter Indwelling Catheter Indwelling Catheter Weight 87.7 kg ABP, PAP, CO, CI - Last 8 Hours Arterial Blood Pressure 153/62 Arterial Blood Pressure 167/76 Arterial Blood Pressure 130/64 Arterial Blood Pressure 129/54 Arterial Blood Pressure 155/60 Arterial Blood Pressure 151/59 Results CBC & Chem 7: 07/18/21 04:26 07/18/21 04:26 Labs: Abnormal Lab Results - Last 24 Hours (Table) 07/17/21 07/17/21 07/17/21 Range/Units 15:18 15:21 18:02 WBC 12.5 H (3.8-10.6) k/uL RBC 3.28 L (4.30-5.90) m/uL Hgb 10.3 L (13.0-17.5) gm/dL Hct 28.8 L (39.0-53.0) % Neutrophils # 11.2 H (1.3-7.7) k/uL Lymphocytes # 0.8 L (1.0-4.8) k/uL ABG pH 7.29 L (7.35-7.45) ABG pO2 80 L (83-108) mmHg ABG HCO3 19 L (21-25) mmol/L ABG Total CO2 (19-24) mmol/L ABG O2 Saturation (94-97) % Potassium (3.5-5.1) mmol/L Creatinine (0.66-1.25) mg/dL Glucose (74-99) mg/dL POC Glucose (mg/dL) 196 H (75-99) mg/dL Total Protein (6.3-8.2) g/dL Albumin (3.5-5.0) g/dL 07/17/21 07/17/21 07/18/21 Range/Units 18:49 23:49 04:26 WBC (3.8-10.6) k/uL RBC 3.36 L (4.30-5.90) m/uL Hgb 10.4 L (13.0-17.5) gm/dL Hct 29.6 L (39.0-53.0) % Neutrophils # 8.5 H (1.3-7.7) k/uL Lymphocytes # 0.4 L (1.0-4.8) k/uL ABG pH (7.35-7.45) ABG pO2 (83-108) mmHg ABG HCO3 (21-25) mmol/L ABG Total CO2 (19-24) mmol/L ABG O2 Saturation 97.1 H (94-97) % Potassium (3.5-5.1) mmol/L Creatinine (0.66-1.25) mg/dL Glucose (74-99) mg/dL POC Glucose (mg/dL) 176 H (75-99) mg/dL Total Protein (6.3-8.2) g/dL Albumin (3.5-5.0) g/dL 07/18/21 07/18/21 07/18/21 Range/Units 04:26 05:07 05:38 WBC (3.8-10.6) k/uL RBC (4.30-5.90) m/uL Hgb (13.0-17.5) gm/dL Hct (39.0-53.0) % Neutrophils # (1.3-7.7) k/uL Lymphocytes # (1.0-4.8) k/uL ABG pH (7.35-7.45) ABG pO2 (83-108) mmHg ABG HCO3 26 H (21-25) mmol/L ABG Total CO2 28 H (19-24) mmol/L ABG O2 Saturation 98.5 H (94-97) % Potassium 3.4 L (3.5-5.1) mmol/L Creatinine 0.56 L (0.66-1.25) mg/dL Glucose 155 H (74-99) mg/dL POC Glucose (mg/dL) 164 H (75-99) mg/dL Total Protein 5.8 L (6.3-8.2) g/dL Albumin 3.3 L (3.5-5.0) g/dL
--- NOTE | 2021-07-18 17:11 | OP ---
OPERATIVE REPORT DATE OF SERVICE: 07/17/2021. PREOPERATIVE DIAGNOSIS: 1. C3-C4, C4-C5, C5 -C6 unstable spondylolisthesis. 2. C3-4, C4-5, C5-6 stenosis 3. 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 Severe spondylosis with cervical spine deformity and kyphosis, C3 to C7. 5. Cervical radiculopathy bilateral upper and lower extremity 6. Cervical degenerative disc disease 7. Mechanical neck pain 8. Unsteady gait. POSTOPERATIVE DIAGNOSIS: 1. C3-C4, C4-C5, C5 -C6 unstable spondylolisthesis. 2. C3-4, C4-5, C5-6 stenosis 3. 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 Severe spondylosis with cervical spine deformity and kyphosis, C3 to C7. 5. Cervical radiculopathy bilateral upper and lower extremity 6. Cervical degenerative disc disease 7. Mechanical neck pain 8. Unsteady gait. PROCEDURE PERFORMED: Single day staged procedure Stage I: Anterior: 1. Right sided guerrero-Hernandez exposure 2. C3-4 anterior interbody arthrodesis 3. Partial corpectomy C3 for decompression of C3-4 4. C4-5 anterior interbody arthrodesis 5. C5-6 anterior interbody arthrodesis 6. C3-4, C4-5 and C5-6 application of intervertebral biomechanical device 7. Allograft, autograft bone for spine surgery 8. Use of intraoperative microscope 9. Use of neurophysiologic somatosensory and motor evoked potential monitoring UE and LE Stage II: Posterior: 1. C2-T2 posterolateral instrumented fusion 2. C2-T1 bilateral laminectomy decompression 3. Posterior Segmental instrumentation C2-T2 4. Use of neurophysiologic somatosensory and motor evoked potential monitoring UE and LE ANESTHESIA: GETA ESTIMATED BLOOD LOSS: 500 mL FLUIDS: 3500 mL crystalloid 500 mL albumin URINE OUTPUT: 500 mL IMPLANTS: Globus Hedron IC cages 7 mm, 8 mm x2, Evita [place] screws, [place] bone graft, allograft and autograft. Crosslinks x2 COMPLICATIONS: None. DISPOSITION: Stable to the ICU. INDICATION FOR PROCEDURE: This is a 75-year-old male who presented with complaints of bilateral upper extremity weakness, difficulty with ambulation as well as dropping objects. The patient also complained of bilateral upper extremity numbness and tingling. He complained of pain that seemed to shoot down his spine into his legs with the motion of his neck. He underwent a slew of conservative treatments, including physical therapy, medications, and eventually underwent an MRI which showed severe stenosis throughout his cervical spine as well as spondylosis. He was worked up appropriately and we discussed that surgery is the ultimate option for him, considering that he has only 4 mm of space available for his cord at C3-C4 and C4-C5. We discussed risks and benefits of the procedure, including risk of bleeding, infection, damage to surrounding tissue, risk of reoperation, risk of anesthesia up to including . He was willing to assume these risks and all the risks of surgery. The patient was seen preoperatively. All preoperative protocols were followed. The patient was deemed fit by the Department of Anesthesia for surgery. Central line and arterial line were placed by the Department of Anesthesia. He was given a weight-based dose of antibiotics as well as tranexamic acid. The consent was confirmed. The site was marked. The patient was ready and willing to proceed with the procedure. OPERATIVE COURSE: The patient was transferred to the operative suite and he was placed supine on a flat Gomze table. The patient underwent general endotracheal intubation by the Department of Anesthesia. Once adequate anesthesia had been obtained, intraoperative neuro monitoring leads were placed and the patient was positioned. Chong was placed atraumatically by nursing. A bump was placed under the patient's shoulders and his arms were tucked at his side. The patient's shoulders were then taped down gently to offer visualization and Alford-Wells tongs were placed 1 cm superior to the pinna in line with the external auditory meatus. Ten pounds of traction was then placed on the patient's head. We padded all bony prominences accordingly. SCDs were placed on b/l LE. We then biomarked the area using AP and lateral fluoroscopy to visualize our skin incision and starting points. Once this had been accomplished, a briefing was performed. Everyone was in agreement and ready to proceed. The patient's anterior neck was then prepped and draped in normal sterile fashion. Time-out was performed. All parties were in agreement with the procedure to be performed. A standard right-sided Guerrero-Hernandez approach to the neck was then performed. We incised the skin transversely, traveled down through the platysma, which was split transversely. We then identified the interval between the omohyoid and the sternocleidomastoid. The esophagus and trachea were bluntly and carefully dissected and were taken medially. We then palpated for the carotid artery, making sure that it was lateral. We then palpated down and felt the spine. We incised the deep cervical fascia to reveal the ALL. There was exuberant osteophytic formation of the anterior cervical spine. We did expose from C2 down to C7. We then took x-rays to confirm the levels. Shadowline retractor was then placed. We then inspected C6-C7. This was severely ankylosed so we cleaned anterior osteophytes and decided to move up to C5-C6. Anterior osteophytes were removed with rongure. Disc space was accessed with a andres rongure. Under lateral flouro we placed 14 mm caspar pins into C6 and C5 midline. Distractor was placed over this and we used an OskoCan'tWaitan lather apprentice to open the disc space and then locked the distractor. The lather apprentice was removed. Anterior cervical diskectomy was performed at C5-C6. Curettes used to scrape cartilage from the endplates and High-speed bur was used to bur endplates and make them flush. We then burred the posterior osteophytes off and released the PLL using Kerrison rongeurs and curettes. We performed bilateral foraminotomies. Meticulous hemostasis was performed. We then sized for a 7 mm Hedron graft. This was assembled on the back table and then This was then placed under lateral imaging, which was packed with Bio4 and autograft. We then impacted the graft into place under lateral fluoroscopy. We then placed superior and inferior screws through the anterior plate. We then proceeded to remove the [place] pins from C6 and removed distraction. Bone wax was placed in their voids. We then replaced [place] pins in C5 and placed new [place] pins in C4 under lateral fluoroscopy. Distraction was then placed. We then performed anterior cervical diskectomy, bilateral foraminotomy and PLL release similar to that described above now of C4-C5. Graft was then sized and placed once again for an 8 mm graft. This was filled with Bio 4 and autograft. This was impacted in place under lateral fluoroscopy. It was assembled on the table previously before this with the plate. Inferior screws were then placed under lateral fluoroscopy. We did only place the inferior screw on this graft to allow for reduction from the back of the C4-C5 spondylolisthesis. The graft was stable. Meticulous hemostasis was performed. The [place] pin was removed from C5 and bone wax placed in its void. We then turned our attention to C3-C4. [place] pin was placed in C3 under lateral fluoroscopy and distraction taken place. This level was ankylosed; however, due to the posterior decompression needed at this level, partial corpectomy of C3 was then performed to allow for visualization. PLL was then released. Bilateral foraminotomies were performed as well. The graft was then sized and placed for a 7 mm graft. Superior and inferior screws were then drilled and placed through the preassembled plate with the graft. We then locked all locking screws. We irrigated the wound thoroughly and meticulous hemostasis was performed. We did place a drain deep within the wound. This was through a separate incision anteriorly. We then took final x-ray, AP and lateral fluoroscopy, which confirmed good placement of graft. We then closed the wound using 3- 0 Vicryl in simple fashion, first in the platysma to approximate these layers, then in the subcutaneous tissue. We then used a 4-0 Stratafix in the skin. The skin was then cleaned and dressed sterilely with Exofin glue followed by an Optifoam dressing. The drain was connected and had good suction. The patient was then transferred off of the flat Gomez table back onto his bed and a table exchange was performed. The Alford-Wells tongs were removed and Leslie head clamp was placed on the patient atraumatically. Once in position, the patient was then transferred to the prone position onto the Gomez spine table and Leslie head clamp secured. The patient was placed in a neutral position of his spine with his ears over shoulders. We then took lateral fluoroscopy to confirm good placement of his neck. We padded all bony prominences accordingly, arms were tucked at the side thumb down with ample padding. We took care to pad the chest, thighs, knees and ankles. SCDs remained inplace along with IONM leads. The shoulders were then taped down once again. Neural monitoring motors were run pre- and post-flip, and there were no significant changes. We then once again performed a time-out and briefing. All parties were in agreement to proceed with the second stage of the procedure. The patient's posterior cervical and thoracic spine were then prepped and draped in normal sterile fashion. A midline incision was made from the inion down to the spinous process of T2-T3. Subperiosteal dissection was taken down over the facet joints bilaterally and visualized. Once exposure was complete, we then proceeded with placement of C2 screws. A penfield 4 was placed on the medial border of the C2 pedicle as a guide. Starting on the left-hand side under lateral fluoroscopy, a high-speed bur was used to make a starting point within the C2 pedicle. We then drilled sequentially 2 mm at a time until a 20 mm screw was achieved aiming medial and cranial to end underneath the C1-2 joint. In between each drilling session, a ball tip Feeler was used to ensure a good bony bottom and good 4 amato. Once this was confirmed, we placed the screw atraumatically under lateral imaging. We then turned our attention to the right-hand side, where we performed C2 screw in a similar fashion and atruamatically. AP and lateral images showed good placement of C2 screws and so we proceeded. Lateral mass screws were then drilled and placed under lateral fluoroscopy. We then placed T1 and T2 screws under lateral fluoroscopy using a high-speed bur for starting point followed by a pedicle finer and ball tip Feeler. We then tapped each hole and then placed the screws atraumatically. AP and lateral fluoroscopy confirmed good placement of screws. Once all screws were in position, we did measure and bend and cut dual core rods. These were then placed, reduced and locked in place with set screws and the set screws final-tightened. This did allow for good reduction of the C4-C5 spondylolisthesis. We then proceeded with bilateral laminectomy, C2 through T1. This was performed with a high-speed bur. We undercut C2 lamina up to C1 to allow for room but to keep as much of the C2 lamina possible and decompressed to the mid portion of T1 to ensure wide and adequate decompression. We then atraumatically removed the roof of this bilateral laminectomy to reveal an intact dura. Meticulous hemostasis was performed from the posterior aspect with FloSeal and patties. We then irrigated the wound thoroughly with normal sterile saline, 3 L. We did run motors before and after our decompression which showed no significant changes. SSEP remained stable throughout. Once decompression was complete, we placed 2 crosslinks over the posterior aspect. These were then final-tightened. We then took final AP and lateral fluoroscopic images. We again thoroughly irrigated the wound with normal sterile saline total 6 L. We then placed Surgicel over the dura, which had good pulsations back. There was some hourglassing of the dura which was noted around the C3- C4, C4-C5 region due to the severe compression in this area. We then placed in the posterolateral gutters a mixture of allograft, autograft and DBM. This was then impacted into place and covered with Surgicel. We then placed a drain deep to the fascia. Two grams of vancomycin powder were placed within the wound. We then proceeded with closure. The fascia was closed with #1 Vicryl in bcurzo-wl-fouiw fashion followed by a running unidirectional Stratafix suture for water tight closure. We then placed 0 Vicryl in the deep subcutaneous tissue, 2-0 Vicryl in the superficial subcutaneous tissue and placed 2-0 nylon in a horizontal mattress fashion within the skin. Wound edges approximated very well. The drain was then sewn in with 2-0 nylon. We then cleaned the wound and sterilely dressed it with Optifoam as well as Tegaderms and 4x4s. The drain held suction well. The patient was then transferred off of the spine table onto his hospital bed. The Leslie clamp was removed and there was no excessive bleeding from the pin holes. Drains continued to hold suction front and back. He was placed in a hard cervical collar. He was then transferred to the ICU, intubated, and in stable condition. This case took 50% longer than expected due to pts body habitus, BMI, severe pathology and comorbid conditions (mod 22). MMODL / IJN: [id number] / FRIDA
[2021-07-18] MEDS: LACTATED RINGERS 1,000 ML IV SCH (18:29)
[2021-07-18 18:56] LABS: Glucose,Whole Blood 162 mg/dL (75-99)
[2021-07-18] MEDS: HYDROcodone/APAP 10-325MG 1 EACH TAB PO PRN (19:46)
[2021-07-18] MEDS: TAMSULOSIN 0.4 MG CAP.ER.24H PO SCH (19:46)
[2021-07-18] MEDS: PRAVASTATIN SODIUM 20 MG TAB PO SCH (19:48)
[2021-07-19] MEDS: HYDROmorphone 1 MG/ML 1 ML SYRINGE IVP PRN ×3 (00:16→09:27)
[2021-07-19] MEDS: DEXAMETHASONE SOD PHOSPHATE 10 MG/ML 1 ML VIAL IV SCH ×2 (00:16→06:50)
[2021-07-19] MEDS: CYCLOBENZAPRINE 10 MG TAB PO PRN ×2 (00:17→18:18)
[2021-07-19 00:41] LABS: Glucose,Whole Blood 145 mg/dL (75-99)
[2021-07-19] MEDS: INSULIN ASPART (NovoLOG) 100 UNIT/ML VIAL SQ SCH ×5 (00:45→21:34)
[2021-07-19] MEDS: HYDROcodone/APAP 10-325MG 1 EACH TAB PO PRN (01:59)
[2021-07-19] MEDS: hydrALAZINE HCL 20 MG/ML 1 ML VIAL IVP PRN (02:03)
[2021-07-19] MEDS: HYDROcodone/APAP 5-325MG 1 EACH TAB PO PRN (04:01)
[2021-07-19 05:11] LABS: Basophils % (A) 0 %; Eosinophils % (A) 0 %; HCT 30.2 % (39.0-53.0); HGB 10.5 gm/dL (13.0-17.5); Lymphocytes # (A) 0.4 k/uL (1.0-4.8); Lymphocytes % (A) 2 %; MCHC 34.8 g/dL (31.0-37.0); MCV 89.1 fL (80.0-100.0); Mean Platelet Volume 7.7; Monocytes # (A) 0.9 k/uL (0-1.0); Monocytes % (A) 5 %; Neutrophils # (A) 16.5 k/uL (1.3-7.7); Neutrophils % (A) 92 %; Platelet Count 220 k/uL (150-450); RBC 3.39 m/uL (4.30-5.90); RDW 14.5 % (11.5-15.5); WBC 17.8 k/uL (3.8-10.6)
[2021-07-19 05:57] LABS: Glucose,Whole Blood 145 mg/dL (75-99)
[2021-07-19 08:04] LABS: ALT 23 U/L (4-49); AST 64 U/L (17-59); African American GFR (CKD) >90 (>60 ml/min/1.73 sqM); Albumin 3.8 g/dL (3.5-5.0); Alkaline Phosphatase 59 U/L (38-126); Anion Gap 10 mmol/L; Blood Urea Nitrogen 18 mg/dL (9-20); Calcium 9.6 mg/dL (8.4-10.2); Carbon Dioxide 29 mmol/L (22-30); Chloride 103 mmol/L (98-107); Glucose 129 mg/dL (74-99); Non-African American GFR(CKD) >90 (>60 ml/min/1.73 sqM); Potassium 3.5 mmol/L (3.5-5.1); Sodium 142 mmol/L (137-145); Total Bilirubin 0.4 mg/dL (0.2-1.3); Total Protein 6.3 g/dL (6.3-8.2)
--- NOTE | 2021-07-19 08:55 | P.PN ---
Subjective Progress Note Date: 07/19/21 Principal diagnosis: Cervical Myelopathy Patient seen and examined this morning he has been extubated since yesterday morning is doing well he is in pain and having some difficulty with pain control at this time. Per nursing was at bedside he had somewhat of a difficult night b ut did finally get some rest this morning. Denies any fevers or chills denies any shortness of breath or chest pain. Patient denies any bowel or bladder issues still has a Arango in place he did not get up yesterday. He states that his hands feel better states his legs still having some minor fasciculations but seem to be getting better. Nursing states no other acute events overnight. Objective - Vital Signs Vital signs: Vital Signs Temp 98.5 F 07/19/21 04:00 Pulse 102 H 07/19/21 07:00 Resp 16 07/19/21 07:00 BP 142/71 07/18/21 09:00 Pulse Ox 95 07/19/21 07:00 Intake & Output 07/18/21 07/19/21 07/19/21 18:59 06:59 18:59 Intake Total 367.961 240 370 Output Total 1175 2355 150 Balance -807.039 -2115 220 Weight 84.1 kg Intake: IV 240 240 20 Lactated Ringers 1,000 ml 240 240 20 @ 20 mls/hr IV .Q24H [facility] Rx#:[id number] Intake, IV Titration 97.961 Amount fentaNYL (PF). 1,000 mcg 9.499 In Sodium Chloride 0.9% 80 ml @ 0.5 MCG/KG/HR 4. 13 mls/hr IV .Q24H [facility] Rx #:[id number] propofoL 1,000 mg In 88.462 Empty Bag 1 bag @ Titrate IV .Q0M [facility] Rx#: [id number] Oral 350 Other 30 Output: Drainage 60 180 Anterior Neck 10 20 Posterior Neck 50 160 Urine 1115 2175 150 Other: Voiding Method Indwelling Catheter Indwelling Catheter ABP, PAP, CO, CI - Last Documented Arterial Blood Pressure 158/61 - Exam Patient is alert and oriented 3 appears well-nourished well-hydrated is in no acute distress. They does not appear septic. On exam the patient has no tenderness to palpation of her thoracic or lumbar spine. There is no edema or ballottement sign. Lower extremities with 4+ out of 5 strength in all major muscle groups Upper extremities show 4+/5 strength in all major muscle groups. There is FROM that is painless of the b/l UE and LE in all major joints. They are intact to light touch sensation in L2 to S1 nerve distribution. 2/5 DTR all UE and LE somwhat brisk in UE but improving Patient has palpable dorsalis pedis was posterior tibial pulses. Compartments are soft and compressible. Patient shows a Negative Homans,negative Babinski's negative clonus bilaterally. negative straight leg raise bilaterally. Positive mckenzie's b/l, but improving from baseline No tensioning signs. Cranial nerves II through XII are grossly intact. Anterior incision is CDI. Drain removed today. Posterior incision is CDI. Drain removed today, dressing changed. Some drainage from around drain hole. No flucctuence, no fluid collection - Constitutional General appearance: Present: cooperative - EENT Eyes: Present: PERRLA - Labs CBC & Chem 7: 07/19/21 04:35 07/19/21 04:35 Labs: Abnormal Lab Results - Last 24 Hours (Table) 07/18/21 07/19/21 07/19/21 Range/Units 18:55 00:39 04:35 WBC 17.8 H (3.8-10.6) k/uL RBC 3.39 L (4.30-5.90) m/uL Hgb 10.5 L (13.0-17.5) gm/dL Hct 30.2 L (39.0-53.0) % Neutrophils # 16.5 H (1.3-7.7) k/uL Lymphocytes # 0.4 L (1.0-4.8) k/uL Creatinine (0.66-1.25) mg/dL Glucose (74-99) mg/dL POC Glucose (mg/dL) 162 H 145 H (75-99) mg/dL AST (17-59) U/L 07/19/21 07/19/21 Range/Units 04:35 05:56 WBC (3.8-10.6) k/uL RBC (4.30-5.90) m/uL Hgb (13.0-17.5) gm/dL Hct (39.0-53.0) % Neutrophils # (1.3-7.7) k/uL Lymphocytes # (1.0-4.8) k/uL Creatinine 0.57 L (0.66-1.25) mg/dL Glucose 129 H (74-99) mg/dL POC Glucose (mg/dL) 145 H (75-99) mg/dL AST 64 H (17-59) U/L Assessment and Plan Assessment: 75-year-old male postoperative day 2 from two-stage anterior and posterior cervical fusion and decompression 1. C3-4; C4-5; C5-6 unstable spondylolisthesis 2. 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 Cervical myelopathy Nurick Grade 3 4. b/l UE weakness and radiculopathy 5. L4-5 spondylolisthesis Grade I unstable 6. .RLE radiculopathy 7. B/l LE weakness 8. Unsteady gait Plan: -Appreciate [employer] industrial [employer] consultant and team management. -Appreciate ICU management OK from spine standpoint to TF out of ICU today if stable per ICU team -Activity: Ambulate QID, OOB all meals, up and about, limit lifting bending twisting to less than 5 lbs. Use walker or cane if needed for stability. -Daily PT/OT, increase ambulation strength and balance. Will consult OT -Hard cervical collar at all times when up and about okay to remove just sitting in bed -Pain control: Will increase to Percocet. -Meds: Reviewed -GI ppx: senna, Miralax -DC arango when up and about, bedside commode if needed -DVT PPX: OK to start DVT ppx today, lovenox or heparin -Hygiene: Shower today. Maintain dressing clean and dry. 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 We will see how he does out of the unit and with more PT/OT. He is otherwise doing well for day 2 PO.
[2021-07-19] MEDS ORDERED: HYDROmorphone 1 MG/ML 1 ML SYRINGE IVP PRN ×2 (08:58)
--- NOTE | 2021-07-19 09:05 | P.PN ---
Subjective Progress Note Date: 07/19/21 Principal diagnosis: C 3 through 6 spondylolisthesis, status post repair 75-year-old white male patient with past medical history of severe spondylosis of the cervical spine with deformity and kyphosis of C3-7, with a bilateral upper extremity weakness and radiculopathy, unsteady gait, and a bilateral lower extremity weakness, status post anterior stage I cervical 3 to cervical 6 anterior cervical discectomy and fusion, and stage II cervical to to thoracic 2 posterior spinal instrumental fusion, who was admitted to the intensive care unit following surgery, and remained intubated and supported by mechanical ventilator overnight. His other past medical history is significant for hypertension, hyperlipidemia, osteoarthritis, spinal stenosis of lumbar region, depression, prostate disorder, former smoking history. Patient has had no acute events overnight, his current vent settings are assist control mode of ventilation with a rate of 16, tidal and was 450, FiO2 40% and PEEP of 5, this morning's blood gas shows pO2 of 97, pCO2 41, and pH of 7.42. Patient is on la ctated Ringer's at 20 ML per hour, Diprivan is a 20 mics per kilo per minute, and fentanyl infusion is at 2 mics per kilo per minute. He is hemodynamically stable, not requiring any vasopressor support, in sinus mechanism with a rate of 57, this morning's chest x-ray shows ET tube, left IJ triple-lumen catheter and NG tube in appropriate positions, left lower lobe atelectasis and/or infiltrate, and degenerative changes seen of the dorsal spine. CT of the cervical spine was completed this morning, showing postsurgical changes, multilevel fusion surgery, normal alignment, no focal bone destruction, and some airspace infiltrate in the medial right upper lobe. CT of the thoracic spine without contrast showed fusion surgery in the cervical and upper thoracic spine no complicating process seen involving the spine, there were bilateral posterior pulmonary infiltrates and atelectasis. Today's blood work shows a white blood cell count of 9.2, hemoglobin is 10.4, sodium is 140, potassium is 3.4, chloride is 107, BUN of 10, creatinine 0.56. Patient has a cervical collar in place, anterior and posterior surgical incisions are clean dry and intact, covered with surgical dressings, anterior drain produced 40 mL of sanguinous output in the last 24 hours, and posterior drain with 110 of sanguinous output in the last 24 hours, urine output is adequate in the order of 75 250 ML per hour. Patient is receiving Kefzol 2 g every 24 hours per orthopedic surgery. Patient is opening eyes to voice, he is following command, he is having some discomfort and anxiety, appears to be in no acute distress. We will proceed with the weaning and extubation this morning Patient is seen today 07/19/2021 in follow-up in the intensive care unit. He was successfully extubated yesterday. He is currently sitting up in bed. Awake and alert in no acute distress. Maintaining O2 saturations in the 90s on 4 L/m per nasal cannula. He's been afebrile. White count 17.8. Hemoglobin 10.5. Platelets 220. Sodium 142. Potassium 3.5. Creatinine 0.57. He is receiving Dilaudid for pain control. Maintained on Decadron 6 mg every 6 hours. Cefazolin. Lovenox for DVT prophylaxis. He is having some twitching of the lower extremities which is expected due to nerve reperfusion per the surgical orthopedic team. Objective - Vital Signs Vital signs: Vital Signs Temp 98.5 F 07/19/21 04:00 Pulse 102 H 07/19/21 07:00 Resp 16 07/19/21 07:00 BP 142/71 07/18/21 09:00 Pulse Ox 95 07/19/21 07:00 Intake & Output 07/18/21 07/19/21 07/19/21 18:59 06:59 18:59 Intake Total 367.961 240 370 Output Total 1175 2355 150 Balance -807.039 -2115 220 Weight 84.1 kg Intake: IV 240 240 20 Lactated Ringers 1,000 ml 240 240 20 @ 20 mls/hr IV .Q24H [facility] Rx#:[id number] Intake, IV Titration 97.961 Amount fentaNYL (PF). 1,000 mcg 9.499 In Sodium Chloride 0.9% 80 ml @ 0.5 MCG/KG/HR 4. 13 mls/hr IV .Q24H [facility] Rx #:[id number] propofoL 1,000 mg In 88.462 Empty Bag 1 bag @ Titrate IV .Q0M [facility] Rx#: [id number] Oral 350 Other 30 Output: Drainage 60 180 Anterior Neck 10 20 Posterior Neck 50 160 Urine 1115 2175 150 Other: Voiding Method Indwelling Catheter Indwelling Catheter ABP, PAP, CO, CI - Last Documented Arterial Blood Pressure 158/61 - Exam GENERAL EXAM: Awake, alert 75-year-old male patient, on 4 L nasal cannula, no acute distress. HEAD: Normocephalic/atraumatic. EYES: Normal reaction of pupils, equal size. Conjunctiva pink, sclera white. NOSE: Clear with pink turbinates. THROAT: No erythema or exudates. NECK: No masses, no JVD, no thyroid enlargement, no adenopathy. Patient has a cervical collar in place, anterior and posterior surgical incisions are clean dry and covered with surgical dressings, anterior and posterior drains are in place, compressed and draining with small to moderate amount of sanguinous output CHEST: No chest wall deformity. Symmetrical expansion. LUNGS: Equal air entry with no crackles, wheeze, rhonchi or dullness. Diminished. CVS: Regular rate and rhythm, normal S1 and S2, no gallops, no murmurs, no rubs ABDOMEN: Soft, nontender. No hepatosplenomegaly, normal bowel sounds, no guardi ng or rigidity. EXTREMITIES: No clubbing, no edema, no cyanosis, 2+ pulses and upper and lower extremities. MUSCULOSKELETAL: Muscle strength and tone normal. SPINE: No scoliosis or deformity SKIN: No rashes CENTRAL NERVOUS SYSTEM: Awake, alert, oriented 3. No focal deficits, tone is normal in all 4 extremities. - Labs CBC & Chem 7: 07/19/21 04:35 07/19/21 04:35 Labs: Abnormal Lab Results - Last 24 Hours (Table) 07/18/21 07/19/21 07/19/21 Range/Units 18:55 00:39 04:35 WBC 17.8 H (3.8-10.6) k/uL RBC 3.39 L (4.30-5.90) m/uL Hgb 10.5 L (13.0-17.5) gm/dL Hct 30.2 L (39.0-53.0) % Neutrophils # 16.5 H (1.3-7.7) k/uL Lymphocytes # 0.4 L (1.0-4.8) k/uL Creatinine (0.66-1.25) mg/dL Glucose (74-99) mg/dL POC Glucose (mg/dL) 162 H 145 H (75-99) mg/dL AST (17-59) U/L 07/19/21 07/19/21 Range/Units 04:35 05:56 WBC (3.8-10.6) k/uL RBC (4.30-5.90) m/uL Hgb (13.0-17.5) gm/dL Hct (39.0-53.0) % Neutrophils # (1.3-7.7) k/uL Lymphocytes # (1.0-4.8) k/uL Creatinine 0.57 L (0.66-1.25) mg/dL Glucose 129 H (74-99) mg/dL POC Glucose (mg/dL) 145 H (75-99) mg/dL AST 64 H (17-59) U/L Assessment and Plan Assessment: 1 Cervical myelopathy, C3-4; C5-6 unstable spondylolisthesis, status post stage I Cervical 3 to Cervical 6 anterior cervical discectomy and fusion, and a stage II cervical to to thoracic for posterior spinal instrumented fusion with a nerve integrity monitoring, postoperative day #2 2 Routine postoperative ventilator management, extubated 07/18/2021 3 Unsteady gait, arm weakness, related to cervical spondylolisthesis 4 Hypertension 5 Hyperlipidemia 6 Enlarged prostate 7 Former smoker 8 Daily marijuana use 9 History of major depressive episodes 10 Osteoarthritis Plan: The patient was seen and evaluated by Dr. Kathy Velazco from the pulmonary and critical care standpoint Titrate the FiO2 as tolerated Continue the incentive spirometer for cough and deep breathing exercises Dilaudid being converted to Percocet Lovenox for DVT prophylaxis Remains on Decadron Increase his activity as tolerated Transfer to the surgical floor I, the cosigning physician, performed a history & physical examination of the patient. Lungs sounds are clear, diminished. Maintaining good O2 saturations in the 90s on room air. I discussed the assessment and plan of care with my nurse practitioner, Destinee Velasco. I attest to the above note as dictated by her.
[2021-07-19] MEDS: EZETIMIBE 10 MG TAB PO SCH (09:22)
[2021-07-19] MEDS: GABAPENTIN 300 MG CAP PO SCH ×2 (09:22→20:05)
[2021-07-19] MEDS: DULoxetine HCL 30 MG CAPSULE.DR PO SCH (09:23)
[2021-07-19] MEDS: amLODIPine 10 MG TAB PO SCH (09:23)
[2021-07-19] MEDS: ENOXAPARIN 40 MG/0.4 ML SYRINGE SQ SCH (09:24)
[2021-07-19] MEDS: polyethylene glycoL 3350 17 GM POWD.PACK PO SCH (09:46)
[2021-07-19] MEDS: ACETAMINOPHEN IV (For NPO) 1,000 MG in EMPTY BAG 1 BAG IVPB SCH ×3 (09:46→20:05)
--- NOTE | 2021-07-19 10:10 | P.PN ---
Subjective Progress Note Date: 07/19/21 Pt is sitting in bed, mild discomfort from twitching legs and pain in neck. Breathing appears comfortable, swallow passed. Mentation is clear. Objective - Vital Signs Vital signs: Vital Signs Temp 98.5 F 07/19/21 04:00 Pulse 102 H 07/19/21 07:00 Resp 16 07/19/21 07:00 BP 142/71 07/18/21 09:00 Pulse Ox 95 07/19/21 07:00 Intake & Output 07/18/21 07/19/21 07/19/21 18:59 06:59 18:59 Intake Total 367.961 240 370 Output Total 1175 2355 150 Balance -807.039 -2115 220 Weight 84.1 kg Intake: IV 240 240 20 Lactated Ringers 1,000 ml 240 240 20 @ 20 mls/hr IV .Q24H [facility] Rx#:[id number] Intake, IV Titration 97.961 Amount fentaNYL (PF). 1,000 mcg 9.499 In Sodium Chloride 0.9% 80 ml @ 0.5 MCG/KG/HR 4. 13 mls/hr IV .Q24H [facility] Rx #:[id number] propofoL 1,000 mg In 88.462 Empty Bag 1 bag @ Titrate IV .Q0M [facility] Rx#: [id number] Oral 350 Other 30 Output: Drainage 60 180 Anterior Neck 10 20 Posterior Neck 50 160 Urine 1115 2175 150 Other: Voiding Method Indwelling Catheter Indwelling Catheter ABP, PAP, CO, CI - Last Documented Arterial Blood Pressure 158/61 - Exam Gen: awake, alert HEENT: normocephalic, atraumatic, good hearing acuity, moist mucous membranes Resp: good air exchange, breathing comfortably with no accessory muscle use CVS: good distal perfusion x 4, GI: soft, NTTP, ND : no SPT, no CVAT, arango catheter not present MSK: no pitting edema, no clubbing Neuro: non-focal, moving all extremities Psych: cooperative, euthymic mood - Labs CBC & Chem 7: 07/19/21 04:35 07/19/21 04:35 Labs: Abnormal Lab Results - Last 24 Hours (Table) 07/18/21 07/19/21 07/19/21 Range/Units 18:55 00:39 04:35 WBC 17.8 H (3.8-10.6) k/uL RBC 3.39 L (4.30-5.90) m/uL Hgb 10.5 L (13.0-17.5) gm/dL Hct 30.2 L (39.0-53.0) % Neutrophils # 16.5 H (1.3-7.7) k/uL Lymphocytes # 0.4 L (1.0-4.8) k/uL Creatinine (0.66-1.25) mg/dL Glucose (74-99) mg/dL POC Glucose (mg/dL) 162 H 145 H (75-99) mg/dL AST (17-59) U/L 07/19/21 07/19/21 Range/Units 04:35 05:56 WBC (3.8-10.6) k/uL RBC (4.30-5.90) m/uL Hgb (13.0-17.5) gm/dL Hct (39.0-53.0) % Neutrophils # (1.3-7.7) k/uL Lymphocytes # (1.0-4.8) k/uL Creatinine 0.57 L (0.66-1.25) mg/dL Glucose 129 H (74-99) mg/dL POC Glucose (mg/dL) 145 H (75-99) mg/dL AST 64 H (17-59) U/L Assessment and Plan Assessment: Patient is a 75-year-old male status post anterior and posterior cervical fusion with decompression Acute blood loss anemia, anticipated and expected outcome of surgery -Follow CBC -No indication for transfusion at this time Hypertension -Mildly elevated secondary to pain -Norvasc - as needed oral hydralazine Dyslipidemia -Pravachol -Zetia BPH -Flomax Thank you for allowing us to participate in the care of this pleasant patient. Do not hesitate to contact us with questions. Someone can be reached from the [facility] hospitalist group all hours of the day at [phone] or via perfect serve.
[2021-07-19] MEDS: DEXAMETHASONE SOD PHOSPHATE 4 MG/ML 1 ML VIAL IV SCH ×3 (14:18→23:56)
[2021-07-19 19:00] LABS: Glucose,Whole Blood 158 mg/dL (75-99)
[2021-07-19] MEDS: TAMSULOSIN 0.4 MG CAP.ER.24H PO SCH (20:05)
[2021-07-19 20:45] LABS: Glucose,Whole Blood 150 mg/dL (75-99)
[2021-07-19] MEDS: PRAVASTATIN SODIUM 20 MG TAB PO SCH (21:34)
[2021-07-20] MEDS: ACETAMINOPHEN IV (For NPO) 1,000 MG in EMPTY BAG 1 BAG IVPB SCH (03:20)
[2021-07-20] MEDS: CYCLOBENZAPRINE 10 MG TAB PO PRN (04:00)
[2021-07-20] MEDS: DEXAMETHASONE SOD PHOSPHATE 4 MG/ML 1 ML VIAL IV SCH ×3 (05:24→18:08)
[2021-07-20] MEDS: hydrALAZINE HCL 20 MG/ML 1 ML VIAL IVP PRN (05:25)
[2021-07-20 07:36] LABS: Glucose,Whole Blood 148 mg/dL (75-99)
--- NOTE | 2021-07-20 08:05 | P.PN ---
Subjective Progress Note Date: 07/20/21 Principal diagnosis: Cervical Myelopathy Patient seen and examined this morning is doing fairly well and was transferred out of the ICU to [facility] unit he did well overnight no issues. Patient is having some pain and difficulty with swallowing however this seems to be improving. He has not forcefully's. He has no change in vision blurred vision no headaches nausea vomiting. States he wants to go. He did walk with physical therapy yesterday although minimally see how he does today. Objective - Vital Signs Vital signs: Vital Signs Temp 98 F 07/20/21 04:35 Pulse 89 07/20/21 04:35 Resp 20 07/20/21 04:35 BP 155/77 07/20/21 04:35 Pulse Ox 94 L 07/19/21 20:20 Intake & Output 07/19/21 07/20/21 07/20/21 18:59 06:59 18:59 Intake Total 630 340 Output Total 775 600 Balance -145 -260 Intake: IV 280 ACETAMINOPHEN IV (For NPO 100 ) 1,000 mg In Empty Bag 1 bag @ 400 mls/hr IVPB Q6H [facility] Rx#:[id number] Lactated Ringers 1,000 ml 80 @ 20 mls/hr IV .Q24H [facility] Rx#:[id number] ceFAZolin 2 gm In Sodium 100 Chloride 0.9% 50 ml @ 100 mls/hr IVPB Q8HR [facility] Rx# :[id number] Oral 350 340 Output: Urine 775 600 Other: Voiding Method Indwelling Catheter Toilet Urinal ABP, PAP, CO, CI - Last Documented Arterial Blood Pressure 149/64 - Exam Patient is alert and oriented 3 appears well-nourished well-hydrated is in no acute distress. They does not appear septic. On exam the patient has no tenderness to palpation of her thoracic or lumbar spine. There is no edema or ballottement sign. Lower extremities with 4+ out of 5 strength in all major muscle groups Upper extremities show 4+/5 strength in all major muscle groups. There is FROM that is painless of the b/l UE and LE in all major joints. They are intact to light touch sensation in L2 to S1 nerve distribution. 2/5 DTR all UE and LE somwhat brisk in UE but improving Patient has palpable dorsalis pedis was posterior tibial pulses. Compartments are soft and compressible. Patient shows a Negative Homans,negative Babinski's negative clonus bilaterally. negative straight leg raise bilaterally. Positive mckenzie's b/l, but improving from baseline No tensioning signs. Cranial nerves II through XII are grossly intact. Anterior and posterior incision intact minimal drainage dressings clean and dry No flucctuence, no fluid collection - Constitutional General appearance: Present: cooperative - Labs CBC & Chem 7: 07/19/21 04:35 07/19/21 04:35 Labs: Abnormal Lab Results - Last 24 Hours (Table) 07/19/21 07/19/21 07/19/21 Range/Units 04:35 18:58 20:31 Creatinine 0.57 L (0.66-1.25) mg/dL Glucose 129 H (74-99) mg/dL POC Glucose (mg/dL) 158 H 150 H (75-99) mg/dL AST 64 H (17-59) U/L 07/20/21 Range/Units 07:18 Creatinine (0.66-1.25) mg/dL Glucose (74-99) mg/dL POC Glucose (mg/dL) 148 H (75-99) mg/dL AST (17-59) U/L Assessment and Plan Assessment: 75-year-old male postoperative day 3 from two-stage anterior and posterior cervical fusion and decompression 1. C3-4; C4-5; C5-6 unstable spondylolisthesis 2. 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 Cervical myelopathy Nurick Grade 3 4. b/l UE weakness and radiculopathy 5. L4-5 spondylolisthesis Grade I unstable 6. .RLE radiculopathy 7. B/l LE weakness 8. Unsteady gait Plan: -Appreciate reporting consultant and team management. -Activity: Ambulate QID, OOB all meals, up and about, limit lifting bending twisting to less than 5 lbs. Use walker or cane if needed for stability. -Daily PT/OT, increase ambulation strength and balance. Will consult OT -Hard cervical collar at all times when up and about okay to remove just sitting in bed -Pain control: Will increase to Percocet. -Meds: Reviewed -GI ppx: senna, Miralax -DC arango when up and about, bedside commode if needed -DVT PPX: OK to start DVT ppx today, lovenox or heparin -Hygiene: Shower today. Maintain dressing clean and dry. 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 We will see how he does with physical therapy today.
[2021-07-20] MEDS: INSULIN ASPART (NovoLOG) 100 UNIT/ML VIAL SQ SCH ×4 (08:07→20:38)
[2021-07-20] MEDS: amLODIPine 10 MG TAB PO SCH (08:08)
[2021-07-20] MEDS: DULoxetine HCL 30 MG CAPSULE.DR PO SCH (08:08)
[2021-07-20] MEDS: GABAPENTIN 300 MG CAP PO SCH ×2 (08:08→20:22)
[2021-07-20] MEDS: polyethylene glycoL 3350 17 GM POWD.PACK PO SCH (08:08)
[2021-07-20] MEDS: ENOXAPARIN 40 MG/0.4 ML SYRINGE SQ SCH (08:08)
[2021-07-20] MEDS: EZETIMIBE 10 MG TAB PO SCH (08:09)
[2021-07-20 11:35] LABS: Glucose,Whole Blood 167 mg/dL (75-99)
--- NOTE | 2021-07-20 11:55 | P.PN ---
Subjective Progress Note Date: 07/20/21 Principal diagnosis: C 3 through 6 spondylolisthesis, status post repair 75-year-old white male patient with past medical history of severe spondylosis of the cervical spine with deformity and kyphosis of C3-7, with a bilateral upper extremity weakness and radiculopathy, unsteady gait, and a bilateral lower extremity weakness, status post anterior stage I cervical 3 to cervical 6 anterior cervical discectomy and fusion, and stage II cervical to to thoracic 2 posterior spinal instrumental fusion, who was admitted to the intensive care unit following surgery, and remained intubated and supported by mechanical ventilator overnight. His other past medical history is significant for hypertension, hyperlipidemia, osteoarthritis, spinal stenosis of lumbar region, depression, prostate disorder, former smoking history. Patient has had no acute events overnight, his current vent settings are assist control mode of ventilation with a rate of 16, tidal and was 450, FiO2 40% and PEEP of 5, this morning's blood gas shows pO2 of 97, pCO2 41, and pH of 7.42. Patient is on la ctated Ringer's at 20 ML per hour, Diprivan is a 20 mics per kilo per minute, and fentanyl infusion is at 2 mics per kilo per minute. He is hemodynamically stable, not requiring any vasopressor support, in sinus mechanism with a rate of 57, this morning's chest x-ray shows ET tube, left IJ triple-lumen catheter and NG tube in appropriate positions, left lower lobe atelectasis and/or infiltrate, and degenerative changes seen of the dorsal spine. CT of the cervical spine was completed this morning, showing postsurgical changes, multilevel fusion surgery, normal alignment, no focal bone destruction, and some airspace infiltrate in the medial right upper lobe. CT of the thoracic spine without contrast showed fusion surgery in the cervical and upper thoracic spine no complicating process seen involving the spine, there were bilateral posterior pulmonary infiltrates and atelectasis. Today's blood work shows a white blood cell count of 9.2, hemoglobin is 10.4, sodium is 140, potassium is 3.4, chloride is 107, BUN of 10, creatinine 0.56. Patient has a cervical collar in place, anterior and posterior surgical incisions are clean dry and intact, covered with surgical dressings, anterior drain produced 40 mL of sanguinous output in the last 24 hours, and posterior drain with 110 of sanguinous output in the last 24 hours, urine output is adequate in the order of 75 250 ML per hour. Patient is receiving Kefzol 2 g every 24 hours per orthopedic surgery. Patient is opening eyes to voice, he is following command, he is having some discomfort and anxiety, appears to be in no acute distress. We will proceed with the weaning and extubation this morning Patient is seen today 07/19/2021 in follow-up in the intensive care unit. He was successfully extubated yesterday. He is currently sitting up in bed. Awake and alert in no acute distress. Maintaining O2 saturations in the 90s on 4 L/m per nasal cannula. He's been afebrile. White count 17.8. Hemoglobin 10.5. Platelets 220. Sodium 142. Potassium 3.5. Creatinine 0.57. He is receiving Dilaudid for pain control. Maintained on Decadron 6 mg every 6 hours. Cefazolin. Lovenox for DVT prophylaxis. He is having some twitching of the lower extremities which is expected due to nerve reperfusion per the surgical orthopedic team. The patient is seen today 07/20/2021 in follow-up on the regular medical floor. He is currently sitting up in bed. Awake and alert in no acute distress. Denies any worsening shortness of breath, cough or congestion. Maintaining O2 saturations in the low 90s on room air. He is afebrile. Hemodynamically stable. Left IJ catheter remains in place. Dressing to the right neck is dry and intact. He remains on cefazolin. DuoNeb inhalations as needed. IV Decadron. Lovenox for DVT prophylaxis. Objective - Vital Signs Vital signs: Vital Signs Temp 98.3 F 07/20/21 11:39 Pulse 96 07/20/21 11:39 Resp 20 07/20/21 11:39 BP 134/74 07/20/21 11:39 Pulse Ox 92 L 07/20/21 11:39 Intake & Output 07/19/21 07/20/21 07/20/21 18:59 06:59 18:59 Intake Total 630 340 Output Total 775 600 Balance -145 -260 Intake: IV 280 ACETAMINOPHEN IV (For NPO 100 ) 1,000 mg In Empty Bag 1 bag @ 400 mls/hr IVPB Q6H [facility] Rx#:[id number] Lactated Ringers 1,000 ml 80 @ 20 mls/hr IV .Q24H [facility] Rx#:[id number] ceFAZolin 2 gm In Sodium 100 Chloride 0.9% 50 ml @ 100 mls/hr IVPB Q8HR [facility] Rx# :[id number] Oral 350 340 Output: Urine 775 600 Other: Voiding Method Indwelling Catheter Toilet Toilet Urinal Urinal ABP, PAP, CO, CI - Last Documented Arterial Blood Pressure 149/64 - Exam GENERAL EXAM: Awake, alert 75-year-old male patient, on room air, no acute distress. HEAD: Normocephalic/atraumatic. EYES: Normal reaction of pupils, equal size. Conjunctiva pink, sclera white. NOSE: Clear with pink turbinates. THROAT: No erythema or exudates. NECK: No masses, no JVD, no thyroid enlargement, no adenopathy. Anterior and posterior surgical incisions are clean dry and covered with surgical dressings CHEST: No chest wall deformity. Symmetrical expansion. LUNGS: Equal air entry with no crackles, wheeze, rhonchi or dullness. Diminished. CVS: Regular rate and rhythm, normal S1 and S2, no gallops, no murmurs, no rubs ABDOMEN: Soft, nontender. No hepatosplenomegaly, normal bowel sounds, no guarding or rigidity. EXTREMITIES: No clubbing, no edema, no cyanosis, 2+ pulses and upper and lower extremities. MUSCULOSKELETAL: Muscle strength and tone normal. SPINE: No scoliosis or deformity SKIN: No rashes CENTRAL NERVOUS SYSTEM: Awake, alert, oriented 3. No focal deficits, tone is normal in all 4 extremities. - Labs CBC & Chem 7: 07/19/21 04:35 07/19/21 04:35 Labs: Abnormal Lab Results - Last 24 Hours (Table) 07/19/21 07/19/21 07/20/21 Range/Units 18:58 20:31 07:18 POC Glucose (mg/dL) 158 H 150 H 148 H (75-99) mg/dL 07/20/21 Range/Units 11:33 POC Glucose (mg/dL) 167 H (75-99) mg/dL Assessment and Plan Assessment: 1 Cervical myelopathy, C3-4; C5-6 unstable spondylolisthesis, status post stage I Cervical 3 to Cervical 6 anterior cervical discectomy and fusion, and a stage II cervical to to thoracic for posterior spinal instrumented fusion with a nerve integrity monitoring, postoperative day #3 2 Routine postoperative ventilator management, extubated 07/18/2021, currently on room air today 07/20/2021 3 Unsteady gait, arm weakness, related to cervical spondylolisthesis 4 Hypertension 5 Hyperlipidemia 6 Enlarged prostate 7 Former smoker 8 Daily marijuana use 9 History of major depressive episodes 10 Osteoarthritis Plan: The patient was seen and evaluated by Dr. Kathy Velazco from the pulmonary standpoint Currently on room air Continue the incentive spirometer for cough and deep breathing exercises Lovenox for DVT prophylaxis Remains on Decadron Increase his activity as tolerated We will see as needed I, the cosigning physician, performed a history & physical examination of the patient. Lungs sounds are clear, diminished. Maintaining good O2 saturations in the 90s on room air. I discussed the assessment and plan of care with my nurse practitioner, Destinee Velasco. I attest to the above note as dictated by her.
--- NOTE | 2021-07-20 17:07 | P.PN ---
Subjective Progress Note Date: 07/20/21 No significant events overnight. Patient was transferred out of the ICU to [facility] yesterday and is doing fairly well. He denies any shortness of breath, no cough, no fevers or chills. He is having some pain and difficulty with swallowing but this is improving, no nausea or vomiting, no abdominal pain. He is ambulating with physical therapy but only for short distances. He is on room air, oxygen saturation 90%. He is receiving postoperative cefazolin for prophylaxis. Otherwise she is doing fairly well with no other complaints or symptoms. Objective - Vital Signs Vital signs: Vital Signs Temp 98.3 F 07/20/21 11:39 Pulse 96 07/20/21 11:39 Resp 20 07/20/21 11:39 BP 134/74 07/20/21 11:39 Pulse Ox 92 L 07/20/21 11:39 Intake & Output 07/19/21 07/20/21 07/20/21 18:59 06:59 18:59 Intake Total 630 340 Output Total 775 600 Balance -145 -260 Intake: IV 280 ACETAMINOPHEN IV (For NPO 100 ) 1,000 mg In Empty Bag 1 bag @ 400 mls/hr IVPB Q6H [facility] Rx#:[id number] Lactated Ringers 1,000 ml 80 @ 20 mls/hr IV .Q24H [facility] Rx#:[id number] ceFAZolin 2 gm In Sodium 100 Chloride 0.9% 50 ml @ 100 mls/hr IVPB Q8HR [facility] Rx# :[id number] Oral 350 340 Output: Urine 775 600 Other: Voiding Method Indwelling Catheter Toilet Toilet Urinal Urinal ABP, PAP, CO, CI - Last Documented Arterial Blood Pressure 149/64 - Exam Gen: awake, alert and oriented. Resting in bed comfortably, no acute distress HEENT: Anterior and posterior surgical incisions are intact, no signs of bl eeding or infection, dressing is a place. Pupils are equal round reactive, oropharynx is clear Resp: good air exchange, breathing comfortably with no accessory muscle use CVS: Regular rate and rhythm, S1-S2, no murmurs GI: soft, nontender, nondistended, normal bowel sounds MSK: no pitting edema, no clubbing Neuro: non-focal, moving all extremities - Labs CBC & Chem 7: 07/19/21 04:35 07/19/21 04:35 Labs: Abnormal Lab Results - Last 24 Hours (Table) 07/19/21 07/19/21 07/20/21 Range/Units 18:58 20:31 07:18 POC Glucose (mg/dL) 158 H 150 H 148 H (75-99) mg/dL 07/20/21 Range/Units 11:33 POC Glucose (mg/dL) 167 H (75-99) mg/dL Assessment and Plan Plan: # Cervical myelopathy and spondylolisthesis -Postop day #3 status post stage C 3-6 anterior cervical fusion -Extubated on 07/18/21 -Pain is well-controlled -Continue physical and occupational therapy # Anemia of acute blood loss -Expected drop in hemoglobin after surgery -No signs of active bleeding -Continue monitor hemoglobin, no indication for transfusion at this time # Leukocytosis -WBC count increased from 9-17 -Most likely reactive surgery, and possible acute blood loss -No signs or symptoms of infection -Patient is on IV cefazolin for prophylaxis -Continue to monitor -Obtain castillo cultures patient develops fever or leukocytosis worsens # Hypertension -Controlled with Norvasc -Hydralazine when necessary -Systolic blood pressure has improved with pain control # Dyslipidemia -Pravachol -Zetia # BPH -Flomax
[2021-07-20 17:30] LABS: Glucose,Whole Blood 159 mg/dL (75-99)
[2021-07-20] MEDS: TAMSULOSIN 0.4 MG CAP.ER.24H PO SCH (20:22)
[2021-07-20 20:34] LABS: Glucose,Whole Blood 168 mg/dL (75-99)
[2021-07-20] MEDS: PRAVASTATIN SODIUM 20 MG TAB PO SCH (21:04)
[2021-07-21] MEDS: DEXAMETHASONE SOD PHOSPHATE 4 MG/ML 1 ML VIAL IV SCH ×5 (00:43→23:09)
[2021-07-21 07:04] LABS: Glucose,Whole Blood 152 mg/dL (75-99)
[2021-07-21 07:35] LABS: Basophils % (A) 0 %; Eosinophils % (A) 0 %; HCT 30.3 % (39.0-53.0); HGB 10.7 gm/dL (13.0-17.5); Lymphocytes # (A) 0.4 k/uL (1.0-4.8); Lymphocytes % (A) 5 %; MCH 31.4 pg (25.0-35.0); MCHC 35.2 g/dL (31.0-37.0); MCV 89.2 fL (80.0-100.0); Mean Platelet Volume 7.7; Monocytes # (A) 0.4 k/uL (0-1.0); Monocytes % (A) 5 %; Neutrophils # (A) 7.6 k/uL (1.3-7.7); Neutrophils % (A) 89 %; Platelet Count 208 k/uL (150-450); RDW 13.8 % (11.5-15.5); WBC 8.5 k/uL (3.8-10.6)
[2021-07-21 08:00] LABS: ALT 75 U/L (4-49); AST 72 U/L (17-59); African American GFR (CKD) >90 (>60 ml/min/1.73 sqM); Albumin 3.3 g/dL (3.5-5.0); Albumin/Globulin Ratio 1.2; Alkaline Phosphatase 61 U/L (38-126); Anion Gap 5 mmol/L; Blood Urea Nitrogen 21 mg/dL (9-20); Carbon Dioxide 30 mmol/L (22-30); Chloride 104 mmol/L (98-107); Globulin 2.7 g/dL; Glucose 146 mg/dL (74-99); Magnesium 2.2 mg/dL (1.6-2.3); Non-African American GFR(CKD) >90 (>60 ml/min/1.73 sqM); Potassium 3.4 mmol/L (3.5-5.1); Sodium 139 mmol/L (137-145); Total Bilirubin 0.6 mg/dL (0.2-1.3)
[2021-07-21] MEDS: ENOXAPARIN 40 MG/0.4 ML SYRINGE SQ SCH (08:39)
[2021-07-21] MEDS: amLODIPine 10 MG TAB PO SCH (08:40)
[2021-07-21] MEDS: INSULIN ASPART (NovoLOG) 100 UNIT/ML VIAL SQ SCH ×4 (08:40→21:12)
[2021-07-21] MEDS: GABAPENTIN 300 MG CAP PO SCH ×2 (08:40→21:10)
[2021-07-21] MEDS: DULoxetine HCL 30 MG CAPSULE.DR PO SCH (08:40)
[2021-07-21] MEDS: polyethylene glycoL 3350 17 GM POWD.PACK PO SCH (08:41)
[2021-07-21] MEDS: EZETIMIBE 10 MG TAB PO SCH (08:42)
[2021-07-21] MEDS ORDERED: POTASSIUM CHLORIDE ER 20 MEQ TAB.ER PO STA (09:52)
[2021-07-21 11:56] LABS: Glucose,Whole Blood 146 mg/dL (75-99)
--- NOTE | 2021-07-21 11:57 | P.PN ---
Subjective Progress Note Date: 07/21/21 Principal diagnosis: Cervical myelopathy Patient seen at bedside this morning resting comfortably in the semirecumbent position with c-collar in place. Patient says he has been doing well over the past day. He says he could go home today, however, he says his who is a nurse would prefer him to wait until tomorrow to go home. Patient says he is having some difficulty with swallowing but has been tracking the right direction patient denies chest pain, fever, shortness breath, nausea, vomiting, change in vision, loss of bowel/bladder control. Objective - Vital Signs Vital signs: Vital Signs Temp 98.3 F 07/21/21 08:48 Pulse 76 07/21/21 08:48 Resp 18 07/21/21 08:48 BP 140/74 07/21/21 08:48 Pulse Ox 93 L 07/21/21 04:51 Intake & Output 07/20/21 07/21/21 07/21/21 18:59 06:59 18:59 Intake Total 240 500 Output Total 400 Balance 240 500 -400 Intake: IV 50 ceFAZolin 2 gm In Sodium 50 Chloride 0.9% 50 ml @ 100 mls/hr IVPB [facility]8HR [facility] Rx# :[id number] Oral 240 450 Output: Urine 400 Other: Voiding Method Toilet Toilet Toilet Urinal Urinal Urinal # Voids 2 3 3 # Bowel Movements 0 0 ABP, PAP, CO, CI - Last Documented Arterial Blood Pressure 149/64 - Exam Anterior cervical incision is clean, dry, intact. Incision is healing well. Posterior incision sutures are in good place and well aligned. Nurse did say there was some minimal serosanguineous drainage in the midportion of the incision overnight. This morning posterior incision was clean, dry, intact. No fluctuance/fluid collection Anterior incision dressing was changed. Patient was able to sit up at side of bed with minimal difficulty. Upper and lower extremities 4/5 strength in all major muscle groups. Full range of motion is painless in bilateral upper extremities and lower extremities. Sensation is equal, symmetric, intact bilaterally DP pulses intact, 2+ bilaterally. Negative Homans, negative clonus bilaterally. - Labs CBC & Chem 7: 07/21/21 06:53 07/21/21 06:53 Labs: Abnormal Lab Results - Last 24 Hours (Table) 07/20/21 07/20/21 07/20/21 Range/Units 11:33 17:29 20:33 RBC (4.30-5.90) m/uL Hgb (13.0-17.5) gm/dL Hct (39.0-53.0) % Lymphocytes # (1.0-4.8) k/uL Potassium (3.5-5.1) mmol/L BUN (9-20) mg/dL Creatinine (0.66-1.25) mg/dL Glucose (74-99) mg/dL POC Glucose (mg/dL) 167 H 159 H 168 H (75-99) mg/dL AST (17-59) U/L ALT (4-49) U/L Total Protein (6.3-8.2) g/dL Albumin (3.5-5.0) g/dL 07/21/21 07/21/21 07/21/21 Range/Units 06:53 06:53 07:02 RBC 3.40 L (4.30-5.90) m/uL Hgb 10.7 L (13.0-17.5) gm/dL Hct 30.3 L (39.0-53.0) % Lymphocytes # 0.4 L (1.0-4.8) k/uL Potassium 3.4 L (3.5-5.1) mmol/L BUN 21 H (9-20) mg/dL Creatinine 0.49 L (0.66-1.25) mg/dL Glucose 146 H (74-99) mg/dL POC Glucose (mg/dL) 152 H (75-99) mg/dL AST 72 H (17-59) U/L ALT 75 H (4-49) U/L Total Protein 6.0 L (6.3-8.2) g/dL Albumin 3.3 L (3.5-5.0) g/dL Assessment and Plan Assessment: 75-year-old male postoperative day 4 from two-stage anterior and posterior cervical fusion and decompression 1. C3-4; C4-5; C5-6 unstable spondylolisthesis 2. 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 Cervical myelopathy Nurick Grade 3 4. b/l UE weakness and radiculopathy 5. L4-5 spondylolisthesis Grade I unstable 6. .RLE radiculopathy 7. B/l LE weakness 8. Unsteady gait Plan: - After discussing with patient, patient will stay overnight one more night and plan for discharge home tomorrow. Patient stable at bedside this morning. Pain under better control today - Appreciate medical management - Pain control - continue Percocet, gabapentin, Flexeril - GI prophylaxis - MiraLAX, senna - DVT prophylaxis - Lovenox - PT OT weightbearing as tolerated. Wear c-collar at all times while up and about. - Discharge planning - plan to discharge home tomorrow Time with Patient: Less than 30
--- NOTE | 2021-07-21 17:26 | P.PN ---
Subjective Progress Note Date: 07/21/21 No significant events overnight. Pain is improving, patient is ambulating well, tolerating regular diet but has not had a bowel movement yet. afebrile, vital signs have been normal. He is complaining of lack of sleep for the last 2 days but is otherwise been improving daily. He will remain in the hospital for an additional day at the request of his and will be most likely discharged home tomorrow Objective - Vital Signs Vital signs: Vital Signs Temp 98.0 F 07/21/21 11:00 Pulse 71 07/21/21 11:00 Resp 18 07/21/21 11:00 BP 161/76 07/21/21 11:00 Pulse Ox 96 07/21/21 11:00 Intake & Output 07/20/21 07/21/21 07/21/21 18:59 06:59 18:59 Intake Total 240 500 Output Total 400 Balance 240 500 -400 Intake: IV 50 ceFAZolin 2 gm In Sodium 50 Chloride 0.9% 50 ml @ 100 mls/hr IVPB Q8HR [facility] Rx# :[id number] Oral 240 450 Output: Urine 400 Other: Voiding Method Toilet Toilet Toilet Urinal Urinal Urinal # Voids 2 3 3 # Bowel Movements 0 0 ABP, PAP, CO, CI - Last Documented Arterial Blood Pressure 149/64 - Exam Gen: awake, alert and oriented. Resting in bed comfortably, no acute distress HEENT: Anterior and posterior surgical incisions are intact, no signs of bleeding or infection, dressing is a place. Pupils are equal round reactive, oropharynx is clear Resp: good air exchange, breathing comfortably with no accessory muscle use CVS: Regular rate and rhythm, S1-S2, no murmurs GI: soft, nontender, nondistended, normal bowel sounds MSK: no pitting edema, no clubbing Neuro: non-focal, moving all extremities - Labs CBC & Chem 7: 07/21/21 06:53 07/21/21 06:53 Labs: Abnormal Lab Results - Last 24 Hours (Table) 07/20/21 07/20/21 07/21/21 Range/Units 17:29 20:33 06:53 RBC 3.40 L (4.30-5.90) m/uL Hgb 10.7 L (13.0-17.5) gm/dL Hct 30.3 L (39.0-53.0) % Lymphocytes # 0.4 L (1.0-4.8) k/uL Potassium (3.5-5.1) mmol/L BUN (9-20) mg/dL Creatinine (0.66-1.25) mg/dL Glucose (74-99) mg/dL POC Glucose (mg/dL) 159 H 168 H (75-99) mg/dL AST (17-59) U/L ALT (4-49) U/L Total Protein (6.3-8.2) g/dL Albumin (3.5-5.0) g/dL 07/21/21 07/21/21 07/21/21 Range/Units 06:53 07:02 11:54 RBC (4.30-5.90) m/uL Hgb (13.0-17.5) gm/dL Hct (39.0-53.0) % Lymphocytes # (1.0-4.8) k/uL Potassium 3.4 L (3.5-5.1) mmol/L BUN 21 H (9-20) mg/dL Creatinine 0.49 L (0.66-1.25) mg/dL Glucose 146 H (74-99) mg/dL POC Glucose (mg/dL) 152 H 146 H (75-99) mg/dL AST 72 H (17-59) U/L ALT 75 H (4-49) U/L Total Protein 6.0 L (6.3-8.2) g/dL Albumin 3.3 L (3.5-5.0) g/dL Assessment and Plan Plan: # Cervical myelopathy and spondylolisthesis -Postop day #4 status post stage C 3-6 anterior cervical fusion -Extubated on 07/18/21 -Pain is well-controlled -ambulating well in the hallway -no bowel movement yet, patient is on stool softeners -Continue physical and occupational therapy # Anemia of acute blood loss -Hemoglobin has been stable at 10.5 -Expected drop in hemoglobin after surgery -No signs of active bleeding -Continue monitor hemoglobin, no indication for transfusion at this time # Leukocytosis -Resolved -WBC 9-->17-->8.5 -Most likely reactive surgery, and possible acute blood loss -No signs or symptoms of infection -Patient is on IV cefazolin for prophylaxis -Continue to monitor # Hypertension -Controlled with Norvasc -Hydralazine when necessary -Systolic blood pressure has improved with pain control # Dyslipidemia -Pravachol -Zetia # BPH -Flomax Anticipated discharge home with home care within the next 24 hours Time with Patient: Less than 30
[2021-07-21 17:43] LABS: Glucose,Whole Blood 134 mg/dL (75-99)
[2021-07-21 20:48] LABS: Glucose,Whole Blood 128 mg/dL (75-99)
[2021-07-21] MEDS ORDERED: MELATONIN 3 MG TABLET PO SCH (21:00)
[2021-07-21] MEDS: TAMSULOSIN 0.4 MG CAP.ER.24H PO SCH (21:08)
[2021-07-21] MEDS: PRAVASTATIN SODIUM 20 MG TAB PO SCH (21:08)
[2021-07-21] MEDS: CYCLOBENZAPRINE 10 MG TAB PO PRN (21:26)
[2021-07-22 04:27] VITALS: TEMP 97.6
[2021-07-22] MEDS: DEXAMETHASONE SOD PHOSPHATE 4 MG/ML 1 ML VIAL IV SCH ×2 (06:12→12:41)
[2021-07-22 07:33] LABS: Glucose,Whole Blood 156 mg/dL (75-99)
[2021-07-22] MEDS: DULoxetine HCL 30 MG CAPSULE.DR PO SCH (08:42)
[2021-07-22] MEDS: ENOXAPARIN 40 MG/0.4 ML SYRINGE SQ SCH (08:42)
[2021-07-22] MEDS: GABAPENTIN 300 MG CAP PO SCH (08:42)
[2021-07-22] MEDS: amLODIPine 10 MG TAB PO SCH (08:42)
[2021-07-22] MEDS: CYCLOBENZAPRINE 10 MG TAB PO PRN (08:42)
[2021-07-22] MEDS: INSULIN ASPART (NovoLOG) 100 UNIT/ML VIAL SQ SCH (08:43)
[2021-07-22] MEDS: EZETIMIBE 10 MG TAB PO SCH (08:43)
[2021-07-22] MEDS: polyethylene glycoL 3350 17 GM POWD.PACK PO SCH (08:44)
--- NOTE | 2021-07-22 09:24 | P.PN ---
Subjective Progress Note Date: 07/22/21 Principal diagnosis: Cervical myelopathy Patient seen at bedside this morning resting comfortably in chair at bedside with c-collar in place. Patient says he has been doing well over the past day. Patient says he is ready to go home today. Patient says he is having some difficulty with swallowing but has been tracking the right direction. patient denies chest pain, fever, shortness breath, nausea, vomiting, change in vision, loss of bowel/bladder control. Objective - Vital Signs Vital signs: Vital Signs Temp 97.6 F 07/22/21 04:26 Pulse 61 07/22/21 04:26 Resp 18 07/22/21 04:26 BP 137/75 07/22/21 04:26 Pulse Ox 96 07/22/21 04:26 Intake & Output 07/21/21 07/22/21 07/22/21 18:59 06:59 18:59 Intake Total 240 690 Output Total 1000 Balance -760 690 Intake: IV 50 ceFAZolin 2 gm In Sodium 50 Chloride 0.9% 50 ml @ 100 mls/hr IVPB Q8HR [facility] Rx# :[id number] Oral 240 640 Output: Urine 1000 Other: Voiding Method Toilet Toilet Urinal Urinal # Voids 3 4 # Bowel Movements 0 0 ABP, PAP, CO, CI - Last Documented Arterial Blood Pressure 149/64 - Exam Anterior cervical incision is clean, dry, intact. Incision is healing well. Posterior incision sutures are in good place and well aligned. Posterior dressing was changed. There was some dried blood present at the level about C5, where the crease in the neck is. This area was not actively draining. There is no fluctuance/purulence. Dressing was replaced with an optifoam dressing. Patient was able to sit up at side of bed with minimal difficulty. Upper and lower extremities 4/5 strength in all major muscle groups. Full range of motion is painless in bilateral upper extremities and lower extremities. Sensation is equal, symmetric, intact bilaterally DP pulses intact, 2+ bilaterally. Negative Homans, negative clonus bilaterally. - Labs CBC & Chem 7: 07/21/21 06:53 07/21/21 06:53 Labs: Abnormal Lab Results - Last 24 Hours (Table) 07/21/21 07/21/21 07/21/21 Range/Units 11:54 17:42 20:47 POC Glucose (mg/dL) 146 H 134 H 128 H (75-99) mg/dL 07/22/21 Range/Units 07:15 POC Glucose (mg/dL) 156 H (75-99) mg/dL Assessment and Plan Assessment: 75-year-old male postoperative day 5 from two-stage anterior and posterior cervical fusion and decompression 1. C3-4; C4-5; C5-6 unstable spondylolisthesis 2. 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 Cervical myelopathy Nurick Grade 3 4. b/l UE weakness and radiculopathy 5. L4-5 spondylolisthesis Grade I unstable 6. .RLE radiculopathy 7. B/l LE weakness 8. Unsteady gait Plan: - After discussing with patient, patient says he is ready to go home. Plan for discharge home today. Patient stable at bedside this morning. Pain under better control today - Appreciate medical management - Pain control - continue Percocet, gabapentin, Flexeril - GI prophylaxis - MiraLAX, senna - DVT prophylaxis - Lovenox - PT OT weightbearing as tolerated. Wear c-collar at all times while up and about. - Discharge planning - plan to discharge home today Time with Patient: Less than 30
--- NOTE | 2021-07-22 09:26 | P.DS ---
Providers Date of admission: 07/17/21 05:58 Expected date of discharge: 07/22/21 Attending physician: Gaurang Armijo DO Consults: 07/17/21 17:40 Consult Physician Routine Consulting Provider: Eliazar Chavez Consult Reason/Comments: respiratory management s/p C3-C6 ACDF and C2-T2 decompression + fusion Do you want consulting provider notified?: Yes 07/17/21 17:47 Consult Physician Routine Consulting Provider: Renita Rehman Consult Reason/Comments: Medical Management s/p C3-C6 ACDF and C2-T2 decompression fusion Do you want consulting provider notified?: Yes Primary care physician: Jeremie Lomeli MD Hospital Course: Date of admission: 07/17/2021 Date of discharge: 07/22/2021 Admission diagnosis: 1. C3-C4, C4-C5, C5-C6 unstable spondylolisthesis. 2. C3-4, C4-5, C5-6 stenosis 3. Cervical spondylotic myelopathy, Nurick grade 3 4. Severe spondylosis with cervical spine deformity and kyphosis, C3 to C7. 5. Cervical radiculopathy bilateral upper and lower extremity 6. Cervical degenerative disc disease 7. Mechanical neck pain 8. Unsteady gait Discharge diagnosis: Same Attending physician: Dr. Armijo Surgical procedures: Stage I: Anterior: 1. Right-sided SmithRobinson exposure 2. C3-C4 anterior interbody arthrodesis 3. Partial corpectomy C3 4 decompression C3-C4 4. C4-5 anterior interbody arthrodesis 5. C5-C6 anterior interbody arthrodesis 6. C3-C4, C4-C5 and C5-C6 application of intervertebral biomechanical device 7. Allograft, autograft bone for spine surgery 8. Use of intraoperative microscope 9. Use of neurophysiologic somatosensory and motor evoked potential monitoring UE and LE Stage II: Posterior: 1. C2-T2 posterior lateral instrumented fusion 2. C2-T1 bilateral laminectomy decompression 3. Posterior segmental instrumentation C2-T2 4. Use of neurophysiologic somatosensory and motor evoked potential monitoring UE and LE Brief history: Patient is a 75-year-old male with a history of C3-C4, C4-C5, C5-C6 unstable spondylolisthesis; C3-4, C4-5, C5-6 stenosis; Cervical spondylotic myelopathy, Nurick grade 3; Severe spondylosis with cervical spine deformity and kyphosis, C3 to C7; Cervical radiculopathy bilateral upper and lower extremity; Cervical degenerative disc disease; Mechanical neck pain; Unsteady gait. At this point patient has failed conservative treatment measures and has opted to proceed with a elective surgery as noted under surgical procedure section. Hospital course: Details of patient's surgery can be found in operative report. Patient tolerated the procedure well and was subsequently transported to orthopedic floor. Patient's orthopeidc and medical care was provided daily. Patient had daily laboratory tests performed for evaluation of overall blood counts. Patient had daily physical therapy to include strengthening range of motion as well as education with walker ambulation. Patient was treated with Lovenox for their postoperative DVT prophylaxis during their inpatient stay. Patient was noted to have a relatively uneventful postoperative course. Patient reported satisfactory pain control with oral pain medications by postoperative day 5. Patient showed satisfactory progress with physical therapy. Patient moved steadily through the program and had no difficulty meeting the goals by postoperative day 5. Given patient's otherwise satisfactory course and having met physical therapy goals, plan is to discharge patient home on postoperative day 6. Discharge condition/disposition: Patient will be discharged home in stable condition. Discharge medications: Instructions are given on resumption of patient's normal daily medications per primary care recommendation, in addition patient will be prescribed Oxycodone; gabapentin; senna; Flexeril. Spine Discharge and Recovery Instructions Date of Surgery: 07/17/2021 Medications: See medication list All medication refills should be obtained through your primary care doctor or your clinic spine surgeon. Please discuss prescription refills at your follow up appointment. Do not call the hospital for medication refills. Dressing: Leave your dressing in place for a total of 5 days post operatively. Then you may remove your dressing and leave open to air. Keep the area clean and if not able to keep area clean, then cover with sterile gauze and tape. Showering: You may shower 3 days after your procedure allowing soap and water to run over incision. Do not scrub. Do not soak. Blot dry. Follow up: Please confirm a follow up appointment with your surgeon 3 weeks post operatively. Please make an appointment to follow up with your PCP in 1-2 weeks after surgery for evaluation 3 phase, 3-week plan POST OP WEEKS 1-3 1. Lifting/carrying/pushing/pulling limited to less than 5 pounds. 2. Do not sit for longer than 15 minutes at one time. Get up and walk around. Prolonged sitting is NOT advised. If you lay down, see if you can tolerate laying down on you front (belly side) 3. Walk for periods of 15 minutes = 1 mile but no longer; do it multiple times times each day. 4. Ice your low back after activity. POST OP WEEKS 3-6 1. Lifting limited to less than 20 pounds. 2. Do not sit for longer than 30 minutes at a time. Frequently change positions. Use a sit-to stand workstation or take frequent breaks from sitting if you have returned to work. 3. Walk for 30 minutes each day. If possible, do these three or more times a day POST OP WEEKS 6+ At your 6-week appointment we will give you a physical therapy referral to focus on a core stabilization and strengthening program. You should also work on leg & buttock strengthening, hamstring & quadriceps stretching, and continue a low impact aerobic activity program such as swimming, walking, or riding a stationary bicycle. During the initial 6 weeks after your surgery, you are at the highest risk of re-injuring your spine. You should generally avoid BLTs (bending, lifting and twisting combination motions) and follow the above guidelines to reduce the chance of reinjury. You can anticipate post op appointments in our office at approximately 3 weeks and 6 weeks after your surgery. INCISION CARE: If your incision is not draining you do NOT need to cover it with a dressing. Keep your incision clean, dry and intact. In most cases, we apply skin glue, miguelito or sutures to the incision at the time of surgery. This will be like a crust or have the appearance of a scab and will fall off in time on its own. The stitches or miguelito need to be removed at 3 weeks post op appointment. You may begin to shower 3 days after surgery (this allows the glue to rodriguez well). However, please avoid scrubbing the incision site or peeling off any of the skin glue. This will ensure optimal healing of your incision. Also, during this time avoid soaking the incision area in water - this includes swimming pools, hot tubs or baths. No ointments, lotions or oils on the incision until your surgeon allows. Leave miguelito, sutures or glue in place. Neurological dysfunction that comes on suddenly can also be a sign of a stroke. Below some common symptoms of a stroke are listed: B - balance difficulty such as sudden onset walking or leaning to one side - NEW E - eye problem such as sudden double vision or trouble seeing on one side - NEW F - Facial weakness or numbness on one side - NEW A - Arm or leg weakness or numbness on one side - NEW S - Slurred speech or difficulty with word finding - NEW T - Time is BRAIN! Call 911 as soon as you recognize these symptoms Diet: Consume a regular diet rich in vegetables and lean protein such as chicken or fish. You should consume in a ratio of approximately 20% fats|40% carbohydrates|40%protein. Vegetables, sweet potatoes, brown rice or quinoa are examples of good carbohydrates. Chips, white bread, cookies and sweets/sugar are examples of bad carbohydrates. Limit your bad carbs, go wild with good carbs. "Life's Simple 7" Guidelines as per [place] [employer] These will help you reclaim your life after surgery and fitter helper in your recovery, keeping in mind your restrictions. (1) Get Active. Physical activity can help people lose weight, control high blood pressure and cholesterol, feel emotionally better, and sleep better. (2) Control Cholesterol. Avoid a diet high in saturated fat, trans fat, & cholesterol. Limit whole milk & cream, ice cream, butter, egg yolks, processed meats (like sausage and hot dogs), and fatty meats. Choose healthy foods that are low in saturated fat, trans fat and cholesterol which include: Fruits and vegetables, fiber rich grain products (like whole grain pasta and brown rice), lean meat such as chicken, fish, nuts, seeds, and legumes. (3) Eat Better. Eat small portions. Shop at the grocery with a list and do not stray from it. Tips for a healthy diet include: Limit sodium intake to less than 1500mg daily, avoid prepackaged, processed, and fast foods, choose a diet rich in fruits, vegetables, and whole grain, high fiber foods, and limit saturated & cholesterol in your diet. (4) Manage Blood Pressure. If you have high blood pressure, you should have a cuff at home so that you can check your blood pressure regularly. Be sure you have a good cuff. An arm one is generally better than a wrist one. Bring the cuff to a doctor's appointment to validate that the measurements that your cuff are taking are accurate. Take your blood pressure twice daily when you are sitting down and relaxing. Record the numbers in a log and bring this log with you to your doctors' appointments. (5) Lose Weight if your BMI is above 25. A healthy BMI is between 19-25. To calculate Your BMI, you may use a Standard BMI Calculator on the NIH BMI website: <www.nhlbi.nih.gov/guidelines/obesity/BMI/bmicalc.htm>. Weigh oneself daily. If you are overweight, set a goal to lose weight. A pound a week loss if needed is a good target. (6) Reduce Blood Sugar. Limit foods and liquids with "added sugars." (Added sugars include sucrose, fructose, glucose, maltose, dextrose, high fructose corn syrup, corn syrup, concentrated fruit juice and honey). (7) Stop Smoking. If you smoke, quitting smoking is one of the best things that you can do for your health. Smoking increases your risk of heart attack, stroke, and peripheral vascular disease, which is a build-up of plaque in your arteries. Please discard all the cigarettes and lighters in your house. Have a plan for what you will do when you have the urge to smoke. Direct and second- hand smoke shortens your life as well as the lives of your family, friends and others around you. For your health and the health of those around you, please consider quitting! Proper Bending Body Mechanics: Maintain a wide stance with one foot slightly in front of the other. Keep your back straight. Bend utilizing the strength in your hips and knees. Do not bend at the waist. Maintain the lifted object at your waist-level close to your body. Avoid lifting weight that causes immediately pain or pain anywhere in the body afterwards. Smoking/Nicotine If there was ever one thing that you could do to increase your overall health, decrease your risk of cardiovascular problems by about 39% the second you make the choice, it is to STOP SMOKING. Your body's most instant gratification is the second you stop smoking. We have all heard the studies, read the articles but it is true, smoking is extremely bad for your overall health, and moreover it is detrimental to your bone health. Nicotine, IN ANY FORM, kills bone cells, prevents your body from healing fractures, and significantly prolongs healing after surgery. In spine surgery specifically, it increases your risk of not healing your bones to create a fusion and increases your risk of having a revision surgery due to this up to 60%. I know it is hard. I know it feels impossible. But there are ways. Take control of your life. We are here to help you through it. And when you are ready, ask us and we can direct you to help if you desire. Use the START Plan to Quit Smoking (please visit the [employer]org website listed below for more information): S = Set a quit date. Choose a date within the next 2 weeks, so you have enough time to prepare without losing your motivation to quit. If you mainly smoke at work, quit on the weekend, so you have a few days to adjust to the change. T = Tell family, friends, and co-workers that you plan to quit. Let your friends and family in on your plan to quit smoking and tell them you need their support and encouragement to stop. Look for a quit davina who wants to stop smoking as well. You can help each other get through the rough times. A = Anticipate and plan for the challenges you'll face while quitting. Most people who begin smoking again do so within the first 3 months. You can help yourself make it through by preparing ahead for common challenges, such as nicotine withdrawal and cigarette cravings. R = Remove cigarettes and other tobacco products from your home, car, and work. Throw away all your cigarettes (no emergency pack!), lighters, ashtrays, and matches. Wash your clothes and freshen up anything that smells like smoke. Shampoo your car, clean your drapes and carpet, and steam your furniture. T = Talk to your doctor about getting help to quit. Your doctor can prescribe medication to help with withdrawal and suggest other alternatives. If you can't see a doctor, you can get many products over the counter at your local pharmacy or grocery store, including the nicotine patch, nicotine lozenges, and nicotine gum. Resources for Quitting Smoking: <https://www.[place].gov/documents/mdc h/Quit_Tobacco_Resources_for_patients_313480_7.pdf> Supplementation: Take recommended dosages of Vitamin D and Calcium to help fortify your bones and help them to heal. See your health maintenance packet for dosages and recommended levels. DVT/VTE prophylaxis: You will be given compression stockings from the hospital. Wear these daily for the first two weeks after surgery. You may take them off at night. You may be prescribed a medication to help thin your blood. Take this as directed. If you are not prescribed this medication, early and frequent ambulation has been shown to be the best prophylaxis to deep vein thrombosis and sequelae related to this event. Assessment: 1. C3-C4, C4-C5, C5-C6 unstable spondylolisthesis. 2. C3-4, C4-5, C5-6 stenosis 3. Cervical spondylotic myelopathy, Nurick grade 3 4. Severe spondylosis with cervical spine deformity and kyphosis, C3 to C7. 5. Cervical radiculopathy bilateral upper and lower extremity 6. Cervical degenerative disc disease 7. Mechanical neck pain 8. Unsteady gait Procedures: Stage I: Anterior: 1. Right-sided SmithRobinson exposure 2. C3-C4 anterior interbody arthrodesis 3. Partial corpectomy C3 4 decompression C3-C4 4. C4-5 anterior interbody arthrodesis 5. C5-C6 anterior interbody arthrodesis 6. C3-C4, C4-C5 and C5-C6 application of intervertebral biomechanical device 7. Allograft, autograft bone for spine surgery 8. Use of intraoperative microscope 9. Use of neurophysiologic somatosensory and motor evoked potential monitoring UE and LE Stage II: Posterior: 1. C2-T2 posterior lateral instrumented fusion 2. C2-T1 bilateral laminectomy decompression 3. Posterior segmental instrumentation C2-T2 4. Use of neurophysiologic somatosensory and motor evoked potential monitoring UE and LE Patient Condition at Discharge: Good Plan - Discharge Summary Discharge Rx Participant: No New Discharge Prescriptions: New Gabapentin 300 mg PO TID #42 cap oxyCODONE HCL [OxyIR] 5 mg PO Q6H PRN #28 tab PRN Reason: Pain Sennosides/Docusate Sodium [Senna Plus 8.6-50 mg Softgel] 1 each PO DAILY #30 Cyclobenzaprine [Flexeril] 10 mg PO TID #30 tab No Action Tamsulosin [Flomax] 0.4 mg PO HS Ibuprofen [Motrin] 800 mg PO Q8H PRN PRN Reason: Pain DULoxetine HCL [Cymbalta] 30 mg PO DAILY traMADol HCL 50 mg PO TID PRN PRN Reason: Pain Cholecalciferol [Vitamin D3 (25 Mcg = 1000 Iu)] 25 mcg PO DAILY amLODIPine [Norvasc] 10 mg PO QAM Pravastatin Sodium [Pravachol] 10 mg PO HS Ezetimibe [Zetia] 10 mg PO DAILY Calcium Carbonate [Calcium] 1,000 mg PO DAILY Discharge Medication List Calcium Carbonate [Calcium] 1,000 mg PO DAILY 07/06/21 [History] Cholecalciferol [Vitamin D3 (25 Mcg = 1000 Iu)] 25 mcg PO DAILY 07/06/21 [History] DULoxetine HCL [Cymbalta] 30 mg PO DAILY 07/06/21 [History] Ezetimibe [Zetia] 10 mg PO DAILY 07/06/21 [History] Ibuprofen [Motrin] 800 mg PO Q8H PRN 07/06/21 [History] Pravastatin Sodium [Pravachol] 10 mg PO HS 07/06/21 [History] Tamsulosin [Flomax] 0.4 mg PO HS 07/06/21 [History] amLODIPine [Norvasc] 10 mg PO QAM 07/06/21 [History] traMADol HCL 50 mg PO TID PRN 07/06/21 [History] Cyclobenzaprine [Flexeril] 10 mg PO TID #30 tab 07/21/21 [Rx] Gabapentin 300 mg PO TID #42 cap 07/21/21 [Rx] Sennosides/Docusate Sodium [Senna Plus 8.6-50 mg Softgel] 1 each PO DAILY #30 07/21/21 [Rx] oxyCODONE HCL [OxyIR] 5 mg PO Q6H PRN #28 tab 07/21/21 [Rx] Follow up Appointment(s)/Referral(s): [facility], [NON-STAFF] - 1-2 Days Jeremie Lomeli MD [Primary Care Provider] - 1 Week Gaurang Armijo DO [Doctor of Osteopathic Medicine] - 2 Weeks [employer] [facility] [NON-STAFF] - As Needed (Shower Chair is not covered by insurance, [employer] can be contacted for a loaner shower chair. ) Patient Instructions/Handouts: Anterior Cervical Discectomy (DC) Activity/Diet/Wound Care/Special Instructions: Spine Discharge and Recovery Instructions Date of Surgery: 07/17/2021 Diagnosis: Severe cervical spondylotic myelopathy Procedure: Anterior and posterior cervical fusion Medications: See list All medication refills should be obtained through your primary care doctor or your clinic spine surgeon. Please discuss prescription refills at your follow up appointment. Do not call the hospital for medication refills. Dressing: Leave your dressing in place for a total of 3 days post operatively. Then you may remove your dressing and leave open to air. Keep the area clean and if not able to keep area clean, then cover with sterile gauze and tape. Brace: Where hard cervical collar when up and about at all times. Okay to remove for showering and sleeping Showering: You may shower 3 days after your procedure allowing soap and water to run over incision. Do not scrub. Do not soak. Blot dry. Follow up: Please confirm a follow up appointment with your surgeon 2 weeks post operatively. Please make an appointment to follow up with your PCP in 1-2 weeks after surgery for evaluation 3 phase, 3-week plan POST OP WEEKS 1-3 1. Lifting/carrying/pushing/pulling limited to less than 5 pounds. 2. Do not sit for longer than 15 minutes at one time. Get up and walk around. Prolonged sitting is NOT advised. If you lay down, see if you can tolerate laying down on you front (belly side) 3. Walk for periods of 15 minutes = 1 mile but no longer; do it multiple times times each day. 4.Ice your low back after activity. POST OP WEEKS 3-6 1. Lifting limited to less than 20 pounds. 2. Do not sit for longer than 30 minutes at a time. Frequently change positions. Use a sit-to stand workstation or take frequent breaks from sitting if you have returned to work. 3. Walk for 30 minutes each day. If possible, do these three or more times a day POST OP WEEKS 6+ At your 6-week appointment we will give you a physical therapy referral to focus on a core stabilization and strengthening program. You should also work on leg & buttock strengthening, hamstring & quadriceps stretching, and continue a low impact aerobic activity program such as swimming, walking, or riding a stationary bicycle. During the initial 6 weeks after your surgery, you are at the highest risk of re-injuring your spine. You should generally avoid BLTs (bending, lifting and twisting combination motions) and follow the above guidelines to reduce the chance of reinjury. You can anticipate post op appointments in our office at approximately 3 weeks and 6 weeks after your surgery. INCISION CARE: If your incision is not draining you do NOT need to cover it with a dressing. Keep your incision clean, dry and intact. In most cases, we apply skin glue, miguelito or sutures to the incision at the time of surgery. This will be like a crust or have the appearance of a scab and will fall off in time on its own. The stitches or miguelito need to be removed at 3 weeks post op appointment. You may begin to shower 3 days after surgery (this allows the glue to rodriguez well). However, please avoid scrubbing the incision site or peeling off any of the skin glue. This will ensure optimal healing of your incision. Also, during this time avoid soaking the incision area in water - this includes swimming pools, hot tubs or baths. No ointments, lotions or oils on the incision until your surgeon allows. Leave miguelito, sutures or glue in place. Neurological dysfunction that comes on suddenly can also be a sign of a stroke. Below some common symptoms of a stroke are listed: B - balance difficulty such as sudden onset walking or leaning to one side - NEW E - eye problem such as sudden double vision or trouble seeing on one side - NEW F - Facial weakness or numbness on one side - NEW A - Arm or leg weakness or numbness on one side - NEW S - Slurred speech or difficulty with word finding - NEW T - Time is BRAIN! Call 911 as soon as you recognize these symptoms Diet: Consume a regular diet rich in vegetables and lean protein such as chicken or fish. You should consume in a ratio of approximately 20% fats|40% carbohydrates|40%protein. Vegetables, sweet potatoes, brown rice or quinoa are examples of good carbohydrates. Chips, white bread, cookies and sweets/sugar are examples of bad carbohydrates. Limit your bad carbs, go wild with good carbs. "Life's Simple 7" Guidelines as per [place] [employer] These will help you reclaim your life after surgery and fitter helper in your recovery, keeping in mind your restrictions. (1) Get Active. Physical activity can help people lose weight, control high blood pressure and cholesterol, feel emotionally better, and sleep better. (2) Control Cholesterol. Avoid a diet high in saturated fat, trans fat, & cholesterol. Limit whole milk & cream, ice cream, butter, egg yolks, processed meats (like sausage and hot dogs), and fatty meats. Choose healthy foods that are low in saturated fat, trans fat and cholesterol which include: Fruits and vegetables, fiber rich grain products (like whole grain pasta and brown rice), lean meat such as chicken, fish, nuts, seeds, and legumes. (3) Eat Better. Eat small portions. Shop at the grocery with a list and do not stray from it. Tips for a healthy diet include: Limit sodium intake to less than 1500mg daily, avoid prepackaged, processed, and fast foods, choose a diet rich in fruits, vegetables, and whole grain, high fiber foods, and limit saturated & cholesterol in your diet. (4) Manage Blood Pressure. If you have high blood pressure, you should have a cuff at home so that you can check your blood pressure regularly. Be sure you have a good cuff. An arm one is generally better than a wrist one. Bring the cuff to a doctor's appointment to validate that the measurements that your cuff are taking are accurate. Take your blood pressure twice daily when you are sitting down and relaxing. Record the numbers in a log and bring this log with you to your doctors' appointments. (5) Lose Weight if your BMI is above 25. A healthy BMI is between 19-25. To calculate Your BMI, you may use a Standard BMI Calculator on the NIH BMI website: <www.nhlbi.nih.gov/guidelines/obesity/BMI/bmicalc.htm>. Weigh oneself daily. If you are overweight, set a goal to lose weight. A pound a week loss if needed is a good target. (6) Reduce Blood Sugar. Limit foods and liquids with "added sugars." (Added sugars include sucrose, fructose, glucose, maltose, dextrose, high fructose corn syrup, corn syrup, concentrated fruit juice and honey). (7) Stop Smoking. If you smoke, quitting smoking is one of the best things that you can do for your health. Smoking increases your risk of heart attack, stroke, and peripheral vascular disease, which is a build-up of plaque in your arteries. Please discard all the cigarettes and lighters in your house. Have a plan for what you will do when you have the urge to smoke. Direct and second- hand smoke shortens your life as well as the lives of your family, friends and others around you. For your health and the health of those around you, please consider quitting! Proper Bending Body Mechanics: Maintain a wide stance with one foot slightly in front of the other. Keep your back straight. Bend utilizing the strength in your hips and knees. Do not bend at the waist. Maintain the lifted object at your waist-level close to your body. Avoid lifting weight that causes immediately pain or pain anywhere in the body afterwards. Smoking/Nicotine If there was ever one thing that you could do to increase your overall health, decrease your risk of cardiovascular problems by about 39% the second you make the choice, it is to STOP SMOKING. Your body's most instant gratification is the second you stop smoking. We have all heard the studies, read the articles but it is true, smoking is extremely bad for your overall health, and moreover it is detrimental to your bone health. Nicotine, IN ANY FORM, kills bone cells, prevents your body from healing fractures, and significantly prolongs healing after surgery. In spine surgery specifically, it increases your risk of not healing your bones to create a fusion and increases your risk of having a revision surgery due to this up to 60%. I know it is hard. I know it feels impossible. But there are ways. Take control of your life. We are here to help you through it. And when you are ready, ask us and we can direct you to help if you desire. Use the START Plan to Quit Smoking (please visit the Helpguide.org website listed below for more information): S = Set a quit date. Choose a date within the next 2 weeks, so you have enough time to prepare without losing your motivation to quit. If you mainly smoke at work, quit on the weekend, so you have a few days to adjust to the change. T = Tell family, friends, and co-workers that you plan to quit. Let your friends and family in on your plan to quit smoking and tell them you need their support and encouragement to stop. Look for a quit davina who wants to stop smoking as well. You can help each other get through the rough times. A = Anticipate and plan for the challenges you'll face while quitting. Most people who begin smoking again do so within the first 3 months. You can help yourself make it through by preparing ahead for common challenges, such as nicotine withdrawal and cigarette cravings. R = Remove cigarettes and other tobacco products from your home, car, and work. Throw away all your cigarettes (no emergency pack!), lighters, ashtrays, and matches. Wash your clothes and freshen up anything that smells like smoke. Shampoo your car, clean your drapes and carpet, and steam your furniture. T = Talk to your doctor about getting help to quit. Your doctor can prescribe medication to help with withdrawal and suggest other alternatives. If you can't see a doctor, you can get many products over the counter at your local pharmacy or grocery store, including the nicotine patch, nicotine lozenges, and nicotine gum. Resources for Quitting Smoking: <https://www.[place].gov/documents/[facility]/Quit_Tobacco_Reso urces_for_patients_313480_7.pdf> Supplementation: Take recommended dosages of Vitamin D and Calcium to help fortify your bones and help them to heal. See your health maintenance packet for dosages and recommended levels. DVT/VTE prophylaxis: You will be given compression stockings from the hospital. Wear these daily for the first two weeks after surgery. You may take them off at night. You may be prescribed a medication to help thin your blood. Take this as directed. If you are not prescribed this medication, early and frequent ambulation has been shown to be the best prophylaxis to deep vein thrombosis and sequelae related to this event. Discharge Disposition: HOME WITH HOME HEALTH SERVICES
[2021-07-22 11:39] VITALS: BP 174/70; PULSE 67; RESP 16
== END 2021-07-22 13:16 | disposition home health service (06) | DRG 454 ==
LOC: 2ORMAIN 07-17 05:58 → 2SICU 07-17 17:56 → 5NMEDONC 07-19 19:27
PROVIDERS: ADMIT Orthopaedic Surgery; ATTEND Orthopaedic Surgery
PROC: 0RG20A0 Fusion of 2 or more Cervical Vertebral Joints with Interbody Fusion Device, Anterior Approach, Anterior Column, Open Approach (ICD-10-PCS; principal; 2021-07-18)
PROC: 0RG2071 Fusion of 2 or more Cervical Vertebral Joints with Autologous Tissue Substitute, Posterior Approach, Posterior Column, Open Approach (ICD-10-PCS; 2021-07-18)
PROC: 0RG207J Fusion of 2 or more Cervical Vertebral Joints with Autologous Tissue Substitute, Posterior Approach, Anterior Column, Open Approach (ICD-10-PCS; 2021-07-18)
PROC: 0RG40AJ Fusion of Cervicothoracic Vertebral Joint with Interbody Fusion Device, Posterior Approach, Anterior Column, Open Approach (ICD-10-PCS; 2021-07-18)
PROC: 0RB30ZZ Excision of Cervical Vertebral Disc, Open Approach (ICD-10-PCS; 2021-07-18)
PROC: 4A11X4G Monitoring of Peripheral Nervous Electrical Activity, Intraoperative, External Approach (ICD-10-PCS; 2021-07-18)
DX: M43.12 Spondylolisthesis, cervical region (principal); M47.12 Other spondylosis with myelopathy, cervical region; M50.01 Cervical disc disorder with myelopathy, high cervical region; D62 Acute posthemorrhagic anemia; F33.9 Major depressive disorder, recurrent, unspecified; M48.02 Spinal stenosis, cervical region; M47.22 Other spondylosis with radiculopathy, cervical region; M50.11 Cervical disc disorder with radiculopathy, high cervical region; M40.202 Unspecified kyphosis, cervical region; Z20.822 Contact with and (suspected) exposure to COVID-19; I10 Essential (primary) hypertension; M19.90 Unspecified osteoarthritis, unspecified site; M48.061 Spinal stenosis, lumbar region without neurogenic claudication; R26.2 Difficulty in walking, not elsewhere classified; E78.5 Hyperlipidemia, unspecified; N40.0 Benign prostatic hyperplasia without lower urinary tract symptoms; D72.829 Elevated white blood cell count, unspecified; F41.9 Anxiety disorder, unspecified; Z87.891 Personal history of nicotine dependence; Z79.899 Other long term (current) drug therapy; Z78.1 Physical restraint status; Z87.39 Personal history of other diseases of the musculoskeletal system and connective tissue; Z90.89 Acquired absence of other organs; Z98.890 Other specified postprocedural states; Z88.5 Allergy status to narcotic agent; Z82.49 Family history of ischemic heart disease and other diseases of the circulatory system; Z82.3 Family history of stroke; Z83.2 Family history of diseases of the blood and blood-forming organs and certain disorders involving the immune mechanism; Z80.9 Family history of malignant neoplasm, unspecified
CPT/HCPCS: 71045; 72040; 72125; 72128; 80048; 80053; 82805; 83735; 85025; 86850; 86900; 86901; 87635; 94002; 94003

== ENCOUNTER 2021-10-01 11:16 | Emergency (ER) | payer MEDICARE ==
[2021-10-01 11:39] VITALS: TEMP 98.1
[2021-10-01] MEDS ORDERED: dexAMETHasone 2 MG TAB PO STA (12:57)
--- NOTE | 2021-10-01 13:21 | ED ---
Neuro HPI - General Chief Complaint: Neuro Symptoms/Deficit Stated Complaint: recent neck surgery w/numbness Time Seen by Provider: 10/01/21 12:10 Source: patient, RN notes reviewed Mode of arrival: ambulatory Limitations: no limitations - History of Present Illness Is the patient presenting with stroke symptoms?: No Initial Comments: 75-year-old male with a history of cervical spine fusion in June this year states for the past 3-4 weeks she's had numbness of his penis scrotal area and perirectal area. He also has intermittent episodes of pain that is sometimes sharp and dull radiate down the back of both legs. No overt symptoms of urinary incontinence except for one episode where he didn't negative bathroom in time also no history of fecal incontinence. He does state when he wiped himself really can't feeling very well no trauma reported no fevers chills nausea vomiting sweats or other symptoms - Related Data Home Medications: Home Medications Medication Instructions Recorded Confirmed Calcium Carbonate [Calcium] 1,000 mg PO DAILY 07/06/21 07/17/21 Cholecalciferol [Vitamin D3 (25 25 mcg PO DAILY 07/06/21 07/17/21 Mcg = 1000 Iu)] DULoxetine HCL [Cymbalta] 30 mg PO DAILY 07/06/21 07/17/21 Ezetimibe [Zetia] 10 mg PO DAILY 07/06/21 07/17/21 Ibuprofen [Motrin] 800 mg PO Q8H PRN 07/06/21 07/17/21 Pravastatin Sodium [Pravachol] 10 mg PO HS 07/06/21 07/17/21 Tamsulosin [Flomax] 0.4 mg PO HS 07/06/21 07/17/21 amLODIPine [Norvasc] 10 mg PO QAM 07/06/21 07/17/21 traMADol HCL 50 mg PO TID PRN 07/06/21 07/17/21 Previous Rx's Medication Instructions Recorded Cyclobenzaprine [Flexeril] 10 mg PO TID #30 tab 07/22/21 Gabapentin 300 mg PO TID #42 cap 07/22/21 Sennosides/Docusate Sodium [Senna 1 each PO DAILY #30 tablet 07/22/21 Plus 8.6-50 mg Tablet] oxyCODONE HCL [OxyIR] 5 mg PO Q6H PRN #24 tab 07/22/21 Dexamethasone [Decadron] 6 mg PO Q6HR #20 tablet 10/01/21 Allergies/Adverse Reactions: Allergies Allergy/AdvReac Type Severity Reaction Status Date / Time codeine AdvReac Nausea & Verified 10/01/21 11:35 Vomiting Review of Systems ROS Statement: Those systems with pertinent positive or pertinent negative responses have been documented in the HPI. ROS Other: All systems not noted in ROS Statement are negative. General Exam - General Exam Comments Initial Comments: This is a well-developed well-nourished awake alert oriented 3 male Limitations: no limitations General appearance: alert, in no apparent distress Head exam: Present: atraumatic, normocephalic, normal inspection Eye exam: Present: normal appearance, PERRL, EOMI. Absent: scleral icterus, conjunctival injection, periorbital swelling ENT exam: Present: normal exam, mucous membranes moist Neck exam: Present: normal inspection, full ROM, other (Surgery bruits well- healed posterior surgical scar). Absent: tenderness, meningismus, lymphadenopathy Respiratory exam: Present: normal lung sounds bilaterally. Absent: respiratory distress, wheezes, rales, rhonchi, stridor Cardiovascular Exam: Present: regular rate, normal rhythm, normal heart sounds. Absent: systolic murmur, diastolic murmur, rubs, gallop, clicks GI/Abdominal exam: Present: soft, normal bowel sounds. Absent: distended, tenderness, guarding, rebound, rigid Rectal exam: Present: normal inspection, normal rectal tone, other (Decreased. Anal sensation to light touch) exam: Present: normal inspection, other (Noncircumcised numbness to light touch to the penis and scrotum no discharge seen) Extremities exam: Present: normal inspection, full ROM, normal capillary refill. Absent: tenderness, pedal edema, joint swelling, calf tenderness Back exam: Present: normal inspection Neurological exam: Present: alert, oriented X3, CN II-XII intact Psychiatric exam: Present: normal affect, normal mood Skin exam: Present: warm, dry, intact, normal color. Absent: rash Stroke MDM - NIH Stroke Scale 1a. Level of Consciousness: (0) alert 1b. LOC Questions: (0) answers correctly 1c. LOC Commands: (0) performs tasks correctly 2. Best Gaze: (0) normal 3. Visual: (0) no visual loss 4. Facial Palsy: (0) normal symmetrical movement 5a. Motor Arm Left: (0) no drift 5b. Motor Arm Right: (0) no drift 6a. Motor Leg Left: (0) no drift 6b. Motor Leg Right: (0) no drift 7. Limb Ataxia: (0) absent 8. Sensory: (0) normal 9. Best Language: (0) no aphasia 10. Dysarthria: (0) normal 11. Extinction/Inattention: (0) no abnormality NIH Score total: 0 - Medical Decision Making I did a long discussion with the patient has regarding findings he does not want to be admitted to the hospital I did discuss this again with Dr. Armijo. Patient will be discharged and follow up outpatient. He will be given a prescription for outpatient MRI sedation. Also oral Decadron. We did discuss return parameters he is demonstrating decision making capacity. He agrees except responsibility Past Medical History Past Medical History: Hyperlipidemia, Hypertension, Osteoarthritis (OA), Prostate Disorder Additional Past Medical History / Comment(s): Enlarged Prostate. History of Any Multi-Drug Resistant Organisms: None Reported Past Surgical History: Back Surgery, Tonsillectomy Additional Past Surgical History / Comment(s): cervical sx Past Anesthesia/Blood Transfusion Reactions: No Reported Reaction Past Psychological History: No Psychological Hx Reported Smoking Status: Former smoker Past Alcohol Use History: None Reported Past Drug Use History: Marijuana - Past Family History Father Family Medical History: Cancer Course Vital Signs 10/01/21 11:35 Temperature 98.1 F Pulse Rate 79 Respiratory 18 Rate Blood Pressure 162/83 O2 Sat by Pulse 98 Oximetry - Reevaluation(s) Reevaluation #1: 10/01/21 13:17 The initial plan was to admit the patient after discussion with Dr. Jean son. Patient does not want stay in hospital and states he cannot local MRI machine. He was to be discharged and get it done at the [facility] in [facility]. Disposition Clinical Impression: Lumbosacral radiculopathy Disposition: HOME SELF-CARE Condition: Stable Instructions (If sedation given, give patient instructions): Lumbar Radiculopathy (ED) Prescriptions: Dexamethasone [Decadron] 6 mg PO Q6HR #20 tablet Is patient prescribed a controlled substance at d/c from ED?: No Referrals: Jeremie Lomeli MD [Primary Care Provider] - 1-2 days
[2021-10-01 13:25] LABS: Basophils % (A) 1 %; Eosinophils # (A) 0.2 k/uL (0-0.7); Eosinophils % (A) 4 %; HCT 40.5 % (39.0-53.0); HGB 13.8 gm/dL (13.0-17.5); Lymphocytes # (A) 1.4 k/uL (1.0-4.8); Lymphocytes % (A) 31 %; MCH 29.7 pg (25.0-35.0); MCV 87.3 fL (80.0-100.0); Mean Platelet Volume 6.9; Monocytes # (A) 0.3 k/uL (0-1.0); Monocytes % (A) 6 %; Neutrophils # (A) 2.5 k/uL (1.3-7.7); Neutrophils % (A) 56 %; Platelet Count 241 k/uL (150-450); RBC 4.64 m/uL (4.30-5.90); RDW 13.2 % (11.5-15.5); WBC 4.5 k/uL (3.8-10.6)
[2021-10-01 13:39] LABS: ALT 19 U/L (4-49); AST 23 U/L (17-59); African American GFR (CKD) >90 (>60 ml/min/1.73 sqM); Albumin 4.4 g/dL (3.5-5.0); Alkaline Phosphatase 97 U/L (38-126); Anion Gap 11 mmol/L; Blood Urea Nitrogen 12 mg/dL (9-20); Calcium 9.8 mg/dL (8.4-10.2); Carbon Dioxide 26 mmol/L (22-30); Chloride 105 mmol/L (98-107); Creatine Kinase 68 U/L (55-170); Glucose 97 mg/dL (74-99); Magnesium 1.8 mg/dL (1.6-2.3); Non-African American GFR(CKD) >90 (>60 ml/min/1.73 sqM); Potassium 3.4 mmol/L (3.5-5.1); Sodium 142 mmol/L (137-145); Total Bilirubin 0.4 mg/dL (0.2-1.3); Total Protein 7.6 g/dL (6.3-8.2)
[2021-10-01 13:44] LABS: Appearance,Urine Clear (Clear); Bilirubin,Urine Negative (Negative); Blood,Urine Negative (Negative); Color,Urine Yellow; Glucose,Urine (UA) Negative (Negative); Ketones,Urine Negative (Negative); Leukocyte Esterase,Urine Negative (Negative); Nitrite,Urine Negative (Negative); PH, Urine 5.5 (5.0-8.0); Protein,Urine Trace (Negative); Specific Gravity,Urine 1.019 (1.001-1.035); Urobilinogen,Urine <2.0 mg/dL (<2.0)
[2021-10-01 13:47] VITALS: BP 142/86; PULSE 70; RESP 14
== END 2021-10-01 13:48 | disposition home or self-care (01) ==
LOC: EC 11:16
DX: M54.17 Radiculopathy, lumbosacral region (principal); I10 Essential (primary) hypertension; E78.5 Hyperlipidemia, unspecified; M19.90 Unspecified osteoarthritis, unspecified site; Z88.5 Allergy status to narcotic agent; Z79.899 Other long term (current) drug therapy; Z87.891 Personal history of nicotine dependence; Z98.890 Other specified postprocedural states
CPT/HCPCS: 36415; 80053; 82550; 83735; 85025; 81003; 99284; J8540

== ENCOUNTER → 2021-11-19 | Outpatient (CLI) | payer MEDICARE ==
[2021-11-19 18:58] LABS: Basophils # (A) 0.04 X 10*3/uL (0.00-0.10); Basophils % (A) 0.7 %; Eosinophils # (A) 0.07 X 10*3/uL (0.04-0.35); Eosinophils % (A) 1.2 %; HCT 43.1 % (39.6-50.0); HGB 14.3 g/dL (13.0-17.0); Lymphocytes # (A) 1.59 X 10*3/uL (0.90-5.00); Lymphocytes % (A) 27.1 %; MCHC 33.2 g/dL (32.0-37.0); MCV 84.5 fL (80.0-97.0); Mean Platelet Volume 9.8 fL (9.5-12.2); Monocytes # (A) 0.42 X 10*3/uL (0.20-1.00); Monocytes % (A) 7.2 %; Neutrophils # (A) 3.74 X 10*3/uL (1.80-7.70); Neutrophils % (A) 63.6 %; Platelet Count 232 X 10*3/uL (140-440); RDW 13.8 % (11.5-14.5); WBC 5.87 X 10*3/uL (4.50-10.00)
[2021-11-19 19:17] LABS: African American GFR (CKD) 85.6 (60.0-200.0); Anion Gap 13.9 mmol/L (10.00-18.00); BUN/Creat Ratio 13.6 Ratio (12.00-20.00); Blood Urea Nitrogen 13.6 mg/dL (9.0-27.0); Calcium 10.3 mg/dL (8.7-10.3); Carbon Dioxide 25.1 mmol/L (20.0-27.5); Non-African American GFR(CKD) 73.8 (60.0-200.0); Potassium 3.3 mmol/L (3.5-5.5)
[2021-11-19 21:11] LABS: INR 0.97 (0.90-1.11); Prothrombin Time 10.7 sec (9.9-11.9)
== END | disposition home or self-care (01) ==
LOC: LABWHC1 11:59
PROVIDERS: ATTEND Internal Medicine
DX: M51.36 Other intervertebral disc degeneration, lumbar region (principal)
CPT/HCPCS: 36415; 80048; 83735; 85025; 85610

== ENCOUNTER → 2021-11-19 | Outpatient (CLI) | payer MEDICARE | END | disposition home or self-care (01) | LOC: LABPAT 11:54 | PROVIDERS: ATTEND Orthopaedic Surgery | DX: Z01.812 Encounter for preprocedural laboratory examination (principal); M43.16 Spondylolisthesis, lumbar region; M48.061 Spinal stenosis, lumbar region without neurogenic claudication | CPT/HCPCS: 87070 ==

== ENCOUNTER 2021-11-23 12:00 | Inpatient (IN) | payer MEDICARE ==
[2021-11-27 15:01] VITALS: BMI 28.1
[2021-11-29] MEDS ORDERED: TRANEXAMIC ACID 1,000 MG in SODIUM CHLORIDE 0.9% 100 ML IVPB PRN ×4 (05:00)
[2021-11-29] MEDS ORDERED: ACETAMINOPHEN TAB 500 MG TAB PO PRN (05:00)
[2021-11-29] MEDS ORDERED: ONDANSETRON 4 MG/2 ML VIAL IVP PRN (05:00)
[2021-11-29] MEDS ORDERED: LIDOCAINE 1% (10MG/ML) FOR IV START INTRADERMA PRN (05:24)
--- NOTE | 2021-11-29 09:00 | P.HPOR ---
History of Present Illness H&P Date: 11/15/21 Chief Complaint: Low back pain, LE weakness, genital tingling Date of :[birth year] Age: 76 year Height: 5'8" Weight: 185 lbs BP:132/70 BMI: 28.13 kg/m2 Occupation: Retired VAS: 5 CHIEF COMPLAINT: Pre surg appointment lumbar spine HISTORY: Xrays No new xrays taken today Trauma or injury No Work-Related No Pain description sharp. Location diffuse Activity Modification yes , unable to complete most of his daily activities at this time. Hand Dominance right DOI: None. DOS: S/P C3-C6 ACDF and C2-T3 PLIF 07/17/2021 TREATMENTS COMPLETED: 6 weeks of PT completed? No Physician directed home exercise completed? yes , with no improvements. Medications yes List: Gabapentin, Mobic, Flexeril, Motrin all without improvements. Alternative interventions Chiropractic: No Massage therapy: No Brace: No Injections No RFA: No SUBJECTIVE: Today Mr. Lyman presents to the office for a pre-operative appointment regarding his lumbar spine. Since the time of the last appointment the patient reports that his symptoms have continued to persist. Patient reports continued perineal numbness and tingling along with symptoms described at the time of the last appointment. Again, patient denies any trauma or injury to indicate an exact onset of these symptoms. Patient has trialed the physician directed HEP in conjunction with medications and denies any improvements with this. Otherwise all questions and concerns are addressed and the patient wishes to proced with the planned L3-L5 decompression on fusion. Patient is ambulating with a cane. HPI: Mr. Lyman was last seen on 10/24/21 regarding his cervical fusion. Since the time of the last appointment the patient has been doing well. He notes that he has been ambulatory without the use of any aides but is still having difficulty with low back pain as well as LE weakness, numbness, tingling and pain. Overall he denies any notable issues regarding his neck. However, the patient does report that for 1 month he has had severe numbness and tingling in his penis with no injury or trauma to indicate an onset of symptoms. He denies any urinary/bladder incontinence. Patient reports severe low back pain in addition to this. Overall his daily functionality, and notably gait, has worsened with these symptoms. This is his primary concern at this time. He denies having trialed any treatment modalities regarding the low back. Patient denies any bladder or bowel issues, no perineal numbness/tingling, and ambulates without the use of any aides. He was advised previously when they called the office with this issue to go to the ED. He did and was offered admission for need of surgery, he refused. He is here today following up. I discussed again that he needs to have surgery urgently. He refuses to go to ED at this time but is willing to have surgery. He had MRI done on out pt basis from previous ED visit which we reviewed today. He c/o penile numbness, denies any perirectal numbness/tingling. States numbness/tingling in his LE b/l as well as weakness. The patients' past social, medical, family, surgical history, as well as review of systems, have been reviewed. Please refer to the Neurosurgery History and Physical form that has been scanned in to our electronic medical record system. 14 points review of systems completed and as stated in HPI, all other systems reviewed are negative. Review of Systems 14 points review of systems completed and as stated in HPI, all other systems reviewed are negative. Past Medical History Past Medical History: Hyperlipidemia, Hypertension, Musculoskeletal Disorder, Osteoarthritis (OA), Prostate Disorder Additional Past Medical History / Comment(s): Enlarged Prostate, numbness in buttocks, penis & legs, frequent back pain History of Any Multi-Drug Resistant Organisms: None Reported Past Surgical History: Back Surgery, Tonsillectomy Additional Past Surgical History / Comment(s): cervical fusion in 2020 Past Anesthesia/Blood Transfusion Reactions: No Reported Reaction Smoking Status: Former smoker - Past Family History Father Family Medical History: Cancer Medications and Allergies Home Medications Medication Instructions Recorded Confirmed Type Cholecalciferol [Vitamin D3 (25 25 mcg PO DAILY 07/06/21 11/27/21 History Mcg = 1000 Iu)] DULoxetine HCL [Cymbalta] 30 mg PO DAILY 07/06/21 11/27/21 History Ezetimibe [Zetia] 10 mg PO DAILY 07/06/21 11/27/21 History Ibuprofen [Motrin] 800 mg PO Q8H PRN 07/06/21 11/27/21 History Pravastatin Sodium [Pravachol] 10 mg PO HS 07/06/21 11/27/21 History Tamsulosin [Flomax] 0.4 mg PO HS 07/06/21 11/27/21 History amLODIPine [Norvasc] 10 mg PO QAM 07/06/21 11/27/21 History traMADol HCL 50 mg PO TID PRN 07/06/21 11/27/21 History Potassium Chloride [Klor-Con 10 ER] 10 meq PO DAILY 11/27/21 11/27/21 History Psyllium Husk [Metamucil] 0.4 gm PO DAILY PRN 11/28/21 11/28/21 History polyethylene glycoL 3350 [Miralax] 17 gm PO DAILY PRN 11/28/21 11/28/21 History Allergies Allergy/AdvReac Type Severity Reaction Status Date / Time codeine AdvReac Nausea & Verified 11/27/21 14:33 Vomiting Physical Examination Osteopathic Statement: *. No significant issues noted on an osteopathic structural exam other than those noted in the History and Physical/Consult. PHYSICAL EXAMINATION: General: Awake, alert, appropriate for age, in no acute distress. HEENT: No unusual neck masses around region of lateral neck triangle, thyroid, supraclavicular groove Heart: Regular rate and rhythm, normal S1, S2 and no murmur/gallop. Lungs: Clear to auscultation bilaterally with no use of accessory muscles. Extremities: Skin warm and dry without acute lesions, coloration, temperature, skin intact, no tenderness or erythema Integument: Hairy patches: Absent Dorsal skin dimples: Absent Cafe au lait spots: Absent Surgical incisions: yes, well healed cervical incisions. Palpation: Please see Pain drawing on Intake sheet for further detail. Midline spinal tenderness: yes L3-S1 E6 Paralumbar tenderness: yes E6 Parathoracic tenderness: No E6 Buttocks tenderness: No E6 Special findings: No POSTURAL and MUSCULO-SKELETAL EVALUATION: Coronal Balance: NEUTRAL Recumbent testing: Patient is able to lay flat on back Sagittal Balance: NEUTRAL Shoulder Profile: LEVEL Pelvic Girdle: LEVEL Neck ROM: RESTRICTED Lumbar ROM: restricted with pain Shoulder ROM: Symmetrical Hip ROM: Symmetrical Knee ROM: Symmetrical Hands: Normal appearance, symmetrical Feet: Normal appearance, Symmetrical VASCULAR STATUS : LEFT RIGHT Wrist Pulses INTACT INTACT Pedal Pulses (Dors. pedis & post.tibialis) INTACT INTACT Color NORMAL NORMAL Edema Absent Absent NEUROLOGIC EXAMINATION: Mental Status:Awake and alert, fully oriented, with normal attention, concentration and memory, and fluent, appropriate speech. Cranial Nerves: I: Olfactory not tested. II: Visual acuity normal, no visual field deficit noted with confrontation. III,IV: Normal pupillary reflexes & intact extraocular movements without nystagmus. V,: Intact symmetrical facial sensation. VII: Intact symmetrical facial motor movement VIII: Hearing intact. IX,X: Intact gag, swallow, & normal voice. XI: Sternocleidomastoid, trapezius function intact. XII: Tongue midline with normal movements. L'hermitte's Sign: Negative / absent Spurling'Sign: Absent bilaterally. Cubital percussion test: Absent bilaterally. Donaldson-Tinel sign - Carpal region: Absent bilaterally. Straight Leg Raising: Positive on the right side, negative on the left. This coorelates with the previous exam. MOTOR EXAM (0-5/5, N/T) STRENGTH RIGHT LEFT Shoulder Abd (not part of the KENRICK score) 4 4 Elbow Flexors 4 4 Elbow Extensor 4 4 Wrist Dorsiflexors 4 4 Finger Abductor 4 4 Grain Elevator Clerk 4 4 Hip Flexor (Not part of KENRICK Motor score) 4- 4- Knee Flexor 4- 4- Knee Extensor 4- 4- Ankle dorsiflexor 4- 4- Ankle plantarflexion 4- 4- Extensor hallucis 4- 4- Lower extremities with 4- out of 5 strength in all major muscle groups, this is a notable difference from previouslyHe still has a myelopathic gait that seems better than previously but on testing he has weakness in his LE b/l as well. REFLEXES(0-4/2, NT) RIGHT LEFT Upper Extremities 3 3 Lower Extremities 2 2 Pathological Reflexes RIGHT LEFT Donaldson's Present Present Clonus Absent Absent Babinski Absent Absent # Indicates mechanical impairment Muscle appearance: Symmetrical, without signs of atrophy or dystrophy. Chaparoned rectal exam shows good tone, intact perirectal sensation, poor volitional control, but still present. Perineal sensation is diminished but still sensible. Penile tip is numb along with portions of scrotum. Sensory system (0-4, N/T) Test type RU VALENTIN RL LL Joint-Position 2 2 2 2 Vibration 2 2 2 2 Pain & LT sense 2 2 2 2 Dermatomal Deficit: None None None None Gait and Functional Evaluation: Ambulatory aids: Cane Romberg's test: Intact bilaterally Toe heel walk / heel-toe walk intact while maintaining satisfactory balance? No Squatting/straightening w/o assistance to a min of 60 degree knee flexion? No Single leg stance: not intact bilaterally Trendelenburg sign negative bilaterally Hand and finger dexterity intact bilaterally? yes Disdiadochokinesis examination negative bilaterally? yes Results Previous Xrays, CT as well as MRI are reviewd. These demonstrate again of the lumbar spine three levels of disease with two levels of listhesis at L3-4 and L4-5. There is somewhat transitional anatomy at L5 S1 and the rudimentary disc at this level is for the most part intact although flattened. There is moderate to severe stenosis from L3-5 with foraminal and central stenosis from listhesis, disc bulging, facet hypertrophy and ligamental hypertrophy. There are no fractures or lesions noted. Coronal balance maintained. Sagittal is compromised secondary to slips. PILL is w/in limits. MRI of the lumbar spine 10/09: This was reviewed in the office and demonstrates severe stenosis from L3-5 with severe disc height loss, spondylosis and Grade I spondylolisthesis of L3-4 and L4-5. There is facet hypotrophy as well as severe ligamental hypertrophy causing severe central as well as foraminal stenosis b/l at these levels. No fracture or other dislocation is noted. This reflects his bending films from previous visits. No lesions noted. Assessment and Plan Assessment: 1. S/P C3-C6 ACDF and C2-T2 decompression and fusion 2. 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 Neurogenic claudication 4. Continued myelopathy-improving 5. Genital numbness 6. LE radiculopathy b/l 7. Impending Cauda Plan: Based on my findings I suggest the following course of action: 1. I once again urged the patient and relayed the severity of his sx as well as his lumbar MRI findings. Based on the patient's ongoing perineal numbness/tingling we did discuss the necessity of operative intervention based on an urgent/emergent issue. This has been ongoing for 1 month and the patient notes that it is worsening with time. We discussed this at length and the patient expressed understanding. We discussed Direct admission to hospital but pt has refused at this time. His who is present with him in the room has also urged him to conider admission and surgery but to no avail at this time. We discussed surgery would come in the form of an URGENT L3-L5 decompression and fusion. All risks and benefits of the procedure were discussed and the patient e xpressed understanding. Spine Surgery Risk Review Bart Lyman is presenting for evaluation of lumbar pain, genital numbness, and impending cauda equina. It was my pleasure to have seen and examined Bart Lyman. In our visit today we have had a chance to go over subjective complaints, physical examination findings and treatments including the natural course history without intervention and various interventional options. The patients imaging demonstrates MRI: demonstrates severe stenosis from L3-5 with severe disc height loss, spondylosis and Grade I spondylolisthesis of L3-4 and L4-5. There is facet hypotrophy as well as severe ligamental hypertrophy causing severe central as well as foraminal stenosis b/l at these levels. No fracture or other dislocation is noted. This reflects his bending films from previous visits. No lesions noted. . On physical exam, Bart Lyman demonstrates perineal numbness/tingling, myelopathic gait, global lower extremity deficits with weakness and radiculopathy. I have explained to the patient that as their condition progresses it will cause further neurological deficits and eventual paralysis. Based on the patients imaging, physical exam, and the rapid progression and disabling nature of their symptoms, at this time I recommend surgery in the form or a: L3-L5 decompression and fusion. I discussed the risk and benefits of this procedure at length with Bart Lyman. The patient and his agreed to considered pursuing the procedure abovementioned. Prior to surgery, she should follow up with her PCP (Cardio, ID, IM etc) for clearance. Questions were invited and answered, and the patient wishes to proceed as outlined below. Currently, I am recommendin.L3-L5 decompression and fusion 2.Follow up with PCP for surgical clearance 3.Review of surgical risks and benefits as well as an educational packet on the proposed surgical procedure. Risks: All surgical procedures come with inherent risks, including those related to positioning, anesthesia, intraoperative findings, and postoperative complications. It is important to understand that surgery does not come with any guarantee of a successful outcome as complications and adverse events are always possible. The patient was given a handout in office today discussing the surgical procedure and risks associated with the intervention, both of which were discussed with the patient. These risks include but are not limited to the following: * Experiencing same, different or even worse symptoms in back, neck, arms, or legs compared to before surgery. Requiring further surgery or other forms of treatment presently or at some time in the future at same or other levels of the intended spine surgery. On an extreme but fortunately relatively rare basis severe complication such as blindness, stroke, heart attack, temporary and/or permanent nerve injury, paralysis, coma, or may occur, sometimes without known explanation. Surgical complications may include but are not limited to risk of infection, fluid accumulation in the surgical dissection site, including a seroma or hematoma, that requires additional surgery, wound drainage, bleeding, new numbness or weakness, vision changes/loss, spinal fluid leakage, non-healing and/or infected incision, headaches, difficulty or inability to swallow, hoarseness, hemopneumothorax, pneumothorax, impotence, retrograde ejaculation, vaginal dryness; injury to nerves, spinal cord, blood vessels, lymphatics or other vital organs (i.e., bowel injury, injury to the great vessels); heterotopic bone formation; complications related to the hardware such as screws, rods, cages including misplaced hardware, device failure, instrumentation at the wrong spine level, hardware fracture/breakage, or hardware loosening; vertebral failure of the spinal column above or below the newly placed hardware; retained surgical instrumentations or devices and the need for further surgery. * Medical risks of the planned spine surgery include but are not limited to generalized Infections to the whole body or local areas outside of the surgical site (sepsis), heart attack, bleeding, anaphylaxis, meningitis, se izure, epilepsy, hearing loss, burn tipton, laceration of the head or other areas of the body, bruising, hypersensitivity of the skin, bladder over distension; allergic reaction; shoulder injury related to positioning; fat, blood and air clots to other areas of the body like heart, lungs, brain; failure of internal organs such as lungs, kidneys, liver and excessive bleeding. If blood transfusions are necessary, note that transfusions may cause intolerance reactions such as anaphylaxis or other complex reactions. Despite best efforts, the results of spine surgery might not heal in terms of bone, soft tissues such as skin, fascia, ligaments, and joints. Additionally, in order to achieve best possible results, spine surgery may be carried out beyond the initially planned levels and involve decompression, fusion including insertion of hardware at levels other than the original intended area of surgical interest change some portions of the procedure in order to ensure the best possible outcomes. With spine surgery and spinal fusion, there are different off label uses of instrumentation (devices, implants and hardware) as well as biological substances (bone morphogenic proteins, demineralized bone matrix) as well as using extra bone from allograft sources (i.e. cadaver bone) or autograft (iliac crest bone, ribs, or the spine itself). The patient has been given information about these practices and their inherent risks and benefits. [facility] is an educational center that serves as a training facility for ENROLLMENT MANAGER and nursing students. Physician assistants are medically trained surgical providers who function in the outpatient, inpatient, and operating room setting under the direct supervision of the attending surgeon. [facility] has multiple operating rooms with single and overlapping rooms running daily. They currently function under the required guidelines as produced by the [facility] Finance Committee with regards to the overlapping rooms and will continue to comply with changes to this policy as they occur. The requirements include and are complied with as follows: (1) the critical portions of the overlapping rooms will not occur at the same time, (2) the attending physician will be physically present during the critical portions of the procedure and immediately available during the entire case, and (3) a back-up attending is designated should the primary attending not be immediately available. The patient has had a chance to review all the listed information, has been given print outs detailing this information, and has had all his/her questions answered to their satisfaction. It was my pleasure to have seen and examined Bart Lyman. In our visit today we have had a chance to go over my understanding of our patient's current condition, the natural course history without intervention and various interventional options. Questions were invited and answered, and the patient wishes to proceed as outlined above. I have seen and examined the patient for 25 minutes and we have spent more than 50% of the time in repeat and detailed counseling about the patient's condition, its natural course history with out and as much as can be predicted with surgery and re-review of various surgical treatment options. In conclusion, Bart Lyman and his requested we proceed with the above suggested surgery and are willing to accept risks and limitations of the suggested surgery as nature of the disease process and our best attempts at treatment for the condition. Thank you again for allowing us to be part of your patient's care. Please don't hesitate to contact me if you have any further questions. Signed and authenticated by: Gaurang Pulido [facility] [address], [address] [address]
[2021-11-29] MEDS: LACTATED RINGERS 1,000 ML IV SCH ×3 (11:15→22:18)
[2021-11-29] MEDS: ONDANSETRON 4 MG/2 ML VIAL IVP ONE ×2 (11:20→22:13)
[2021-11-29] MEDS: DEXAMETHASONE SOD PHOSPHATE 4 MG/ML 1 ML VIAL IV ONE ×2 (11:20→22:13)
[2021-11-29 11:44] LABS: African American GFR (CKD) >90 (>60 ml/min/1.73 sqM); Anion Gap 8 mmol/L; Blood Urea Nitrogen 13 mg/dL (9-20); Carbon Dioxide 25 mmol/L (22-30); Chloride 108 mmol/L (98-107); Glucose 121 mg/dL (74-99); Non-African American GFR(CKD) 85 (>60 ml/min/1.73 sqM); Potassium 3.7 mmol/L (3.5-5.1); Sodium 141 mmol/L (137-145)
[2021-11-29] MEDS ORDERED: GLYCOPYRROLATE 0.2 MG/ML 2 ML VIAL ONE (12:56)
[2021-11-29] MEDS ORDERED: ROCURONIUM 10 MG/ML (5 ML VIAL) IV ONE (12:56)
[2021-11-29] MEDS ORDERED: TRANEXAMIC ACID 1,000 MG/10 ML VIAL ONE (12:56)
[2021-11-29] MEDS ORDERED: fentaNYL (PF) 50 MCG/ML 2 ML AMP ONE (12:56)
[2021-11-29] MEDS ORDERED: ceFAZolin 1,000 MG VIAL ONE (12:56)
[2021-11-29] MEDS ORDERED: ALBUMIN HUMAN 5% (12.5gm) 250 ML BOTTLE IVPB ONE (12:56)
[2021-11-29] MEDS ORDERED: SUCCINYLCHOLINE CHLORIDE 100 MG/5 ML SYR IV ONE (12:56)
[2021-11-29] MEDS ORDERED: MIDAZOLAM 2 MG/2 ML VIAL ONE (12:56)
[2021-11-29] MEDS ORDERED: PHENYLEPHRINE-0.9% NACL SYG 1,000 MCG/10 ML SYRINGE ONE (12:56)
[2021-11-29] MEDS ORDERED: HYDROmorphone (PF) 1 MG/ML ONE (12:56)
[2021-11-29] MEDS ORDERED: PROPOFOL 10 MG/ML 20 ML VIAL IV ONE (12:56)
[2021-11-29] MEDS ORDERED: SODIUM CHLORIDE 0.9% 100 ML BAG ONE ×2 (12:56)
[2021-11-29] MEDS ORDERED: LIDOCAINE 1% INJ 10MG/ML (20 ML MDV) ONE (12:56)
[2021-11-29] MEDS ORDERED: KETAMINE 10 MG/ML 20 ML VIAL ONE (12:56)
[2021-11-29] MEDS ORDERED: NEOSTIGMINE 1 MG/ML 10 ML VIAL ONE (12:56)
[2021-11-29] MEDS ORDERED: ONDANSETRON 4 MG/2 ML VIAL ONE (12:56)
[2021-11-29] MEDS ORDERED: ePHEDrine 50 MG/ML 1 ML VIAL ONE (12:56)
[2021-11-29] MEDS ORDERED: LACTATED RINGERS 1,000 ML IV ONE ×5 (13:00→20:02)
[2021-11-29] MEDS ORDERED: BUPIVACAINE (PF) 0.25% 30 ML VIAL SQ ONE (13:00)
[2021-11-29] MEDS ORDERED: THROMBIN (BOVINE) 5,000 UNIT VIAL TOPICAL ONE (13:00)
[2021-11-29] MEDS ORDERED: GELATIN SPONGE,ABSORB (LARGE) 1 EACH SPONGE TOPICAL ONE (13:00)
[2021-11-29] MEDS ORDERED: ceFAZolin 3,000 MG in SODIUM CHLORIDE 0.9% IRRIGATIO 3,000 ML IRRIGATION ONE (14:06)
[2021-11-29] MEDS ORDERED: VANCOMYCIN 1,000 MG VIAL MISCELLANE ONE (17:32)
[2021-11-29] MEDS ORDERED: SENNOSIDES-DOCUSATE SODIUM 1 EACH TAB PO PRN (18:01)
[2021-11-29] MEDS ORDERED: HYDROmorphone 0.5 MG/0.5 ML SYRINGE IVP PRN (18:01)
[2021-11-29] MEDS ORDERED: HYDROcodone/APAP 5-325MG 1 EACH TAB PO PRN (18:01)
--- NOTE | 2021-11-29 18:32 | P.PN ---
Progress Note - Text Progress Note Date: 11/29/21 Brief Post Op: Surgeon: Zofia Pre op dx; neurogenic claudication, L3 L5 stenosis, L3-L4 spondylolisthesis Post op dx: Same Procedure: L3 to L5 decompression fusion with reduction Anesthesia: GETA EBL: 350 cc Fluids: 3300 cc UO: 275 cc Dispo: Stable to PACU Post op Plan: Post operative noncontrasted CT scan Encourage ambulation IS 10x/hr Teds/SCDs Pain control No brace needed for ambulation Record Drain output
[2021-11-29] MEDS ORDERED: HYDROmorphone 0.5 MG/0.5 ML SYRINGE IVP ONE ×3 (18:37→19:08)
[2021-11-29] MEDS: fentaNYL (PF) 50 MCG/ML 2 ML AMP IV PRN ×2 (19:25→19:32)
[2021-11-29] MEDS ORDERED: MIDAZOLAM 2 MG/2 ML VIAL IVP ONE (19:50)
[2021-11-29] MEDS: CYCLOBENZAPRINE 10 MG TAB PO SCH (22:17)
[2021-11-29] MEDS: ACETAMINOPHEN TAB 325 MG TAB PO SCH (23:33)
[2021-11-29] MEDS: HYDROmorphone 1 MG/ML 1 ML SYRINGE IVP PRN (23:33)
[2021-11-30] MEDS: LACTATED RINGERS 1,000 ML IV SCH ×2 (00:48→19:29)
[2021-11-30] MEDS: HYDROmorphone 1 MG/ML 1 ML SYRINGE IVP PRN ×7 (02:32→23:34)
--- NOTE | 2021-11-30 03:06 | XR ---
EXAMINATION TYPE: XR lumbar spine 2 or 3V DATE OF EXAM: 11/29/2021 COMPARISON: NONE HISTORY: Spine surgery TECHNIQUE: 14-year-old FINDINGS: 1 minute and 59 seconds of fluoroscopy time was recorded. There are 11 images with the fluo roscope which show placement of posterior rods and screws fusing posteriorly lumbar spine from L3 to L5. There is disc prosthesis. The vertebra have normal alignment.. Sacroiliac joints are intact. There is improved alignment L3-4 c ompared to initial images. IMPRESSION: Posterior fusion surgery. No complicating process seen.
[2021-11-30] MEDS: HYDROcodone/APAP 10-325MG 1 EACH TAB PO PRN (04:09)
[2021-11-30] MEDS: ACETAMINOPHEN TAB 325 MG TAB PO SCH ×4 (05:44→23:33)
--- NOTE | 2021-11-30 08:07 | P.PN ---
Subjective Progress Note Date: 11/30/21 Principal diagnosis: L3 4 spondylolisthesis, neurogenic claudication, L3 to 5 spondylosis with severe stenosis Patient seen and examined this morning. He is doing very well. He is actually sitting up in his chair already and eating breakfast. He complains of pain however is fairly well-controlled and tolerable for him currently. He states his legs feel pretty well and he does not notice any issues with them. She is moving them well and he stood up under his own power you to the bed. He denies any fevers chills shortness of breath or chest pain at this time. He denies any perineal numbness or tingling. Objective - Vital Signs Vital signs: Vital Signs Temp 98.2 F 11/30/21 04:01 Pulse 95 11/30/21 04:01 Resp 16 11/30/21 04:01 BP 169/89 11/30/21 04:01 Pulse Ox 95 11/30/21 04:01 Intake & Output 11/29/21 11/30/21 11/30/21 18:59 06:59 18:59 Intake Total 4150 2200 Output Total 560 3300 Balance 3590 -1100 Weight 82.8 kg Intake: IV 4150 900 Intake, IV Titration 700 Amount Lactated Ringers 1,000 ml 600 @ 50 mls/hr IV .Q20H [facility] Rx#:[id number] ceFAZolin 2 gm In Sodium 100 Chloride 0.9% 50 ml @ 100 mls/hr IVPB ONCE PRN Rx# :[id number] Oral 600 Output: Drainage 200 Lower Back 200 Urine 210 3100 Estimated Blood Loss 350 Other: Voiding Method Indwelling Catheter - Exam Patient is alert and oriented 3 appears well-nourished well-hydrated is in no acute distress. They does not appear septic. On exam the patient has no tenderness to palpation of her thoracic or lumbar spine. There is no edema or ballottement sign. Lower extremities with 4+ out of 5 strength in all major muscle groups no focal deficits Upper extremities show 4+/5 strength in all major muscle groups. No focal def icits There is FROM that is painless of the b/l UE and LE in all major joints. They are intact to light touch sensation in L2 to S1 nerve distribution. Patient has palpable dorsalis pedis was posterior tibial pulses. Compartments are soft and compressible. Patient shows a negative Homans, Donaldson's, negative Babinski's negative clonus bilaterally. negative straight leg raise bilaterally. No tensioning signs. Cranial nerves II through XII are grossly intact. Overall alignment is well-maintained in the sagittal coronal planes. Dressing and incision are clean dry and intact drain is in place with 120 mL overnight. - Labs CBC & Chem 7: 11/29/21 11:00 Labs: Abnormal Lab Results - Last 24 Hours (Table) 11/29/21 Range/Units 11:00 Chloride 108 H (98-107) mmol/L Glucose 121 H (74-99) mg/dL Assessment and Plan Assessment: 1. S/P C3-C6 ACDF and C2-T2 decompression and fusion 2. 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 Neurogenic claudication 4. Continued myelopathy-improving 5. Genital numbness 6. LE radiculopathy b/l 7. Impending Cauda Plan: -Appreciate sr. consultant and team management. -Activity: Ambulate QID, OOB all meals, up and about, limit lifting bending twisting to less than 5 lbs. Use walker or cane if needed for stability. -Daily PT/OT, increase ambulation strength and balance. -Brace when up and about, not needed in bed or chair -Pain control: Adequate at this time -Meds: reviewed -GI ppx: senna, Miralax -DC arango when up and about, bedside commode if needed -DVT PPX: OK to restart Heparin tonight -Hygiene: Shower today. Maintain dressing clean and dry. Meticulous cleaning after BMs away from incision site -Drains: Maintain for now. Record output -Encourage IS 10x/hr -Dispo: Pending
--- NOTE | 2021-11-30 08:48 | CT ---
EXAMINATION TYPE: CT lumbar spine wo con DATE OF EXAM: 11/30/2021 COMPARISON: None HISTORY: S/P L3-L5 decompression/fusion CT DLP: 1024.[address] of the lumbar spine was performed. Bone and soft tissue window settings are submitted as well as coronal and sagittal reconstructions. L1-L2: Normal disc space height. No disc herniation protrusion or central stenosis. No facet joint arthropathy. No evidence for foraminal encroachment. L2-L3: Mild degenerative disc space narrowing and vacuum changes noted. Mild posterior disc bulge. No evidence of disc herniation or protrusion. No evidence for central stenosis. L3-L4: Decompressive laminectomy with pedicular screws and intervertebral body spacer. Extensive stre ak artifact limits evaluation. L4-L5: Decompressive laminectomy with pedicular screws and intervertebral body spacer. Extensive stre ak artifact limits evaluation. There is grade 1 retrolisthesis of L4 and L5 measuring 5 mm. L5-S1: Normal disc space height. No disc herniation protrusion or central stenosis. No facet joint arthropathy. No evidence for foraminal encroachment. No paraspinal masses are identified. Lumbar segments are free if fracture. IMPRESSION: 1. Postoperative changes at L3-4 and L4-5 extensive streak artifact limiting evaluation. There is ret rolisthesis of L4 and L5 as noted.
[2021-11-30 09:24] LABS: Basophils # (A) 0.02 X 10*3/uL (0.00-0.10); Basophils % (A) 0.2 %; Eosinophils # (A) 0.01 X 10*3/uL (0.04-0.35); Eosinophils % (A) 0.1 %; HGB 11.4 g/dL (13.0-17.0); Immature Grans, Automated 0.3 %; Lymphocytes # (A) 1.34 X 10*3/uL (0.90-5.00); Lymphocytes % (A) 11.3 %; MCH 28.7 pg (27.0-32.0); MCHC 34.5 g/dL (32.0-37.0); MCV 83.1 fL (80.0-97.0); Mean Platelet Volume 9.9 fL (9.5-12.2); Monocytes # (A) 0.98 X 10*3/uL (0.20-1.00); Monocytes % (A) 8.3 %; NRBC Per 100 WBC 0 /100 WBCS (0.0-0.0); Neutrophils # (A) 9.48 X 10*3/uL (1.80-7.70); Neutrophils % (A) 79.8 %; Platelet Count 256 X 10*3/uL (140-440); RBC 3.97 X 10*6/uL (4.40-5.60); WBC 11.87 X 10*3/uL (4.50-10.00)
[2021-11-30] MEDS: EZETIMIBE 10 MG TAB PO SCH (12:53)
[2021-11-30] MEDS: DULoxetine HCL 30 MG CAPSULE.DR PO SCH (12:54)
[2021-11-30] MEDS: amLODIPine 10 MG TAB PO SCH (12:54)
[2021-11-30] MEDS: POTASSIUM CHLORIDE ER 10 MEQ TAB.ER.PRT PO SCH (12:54)
--- NOTE | 2021-11-30 13:11 | P.CONS ---
History of Present Illness - Reason for Consult Consult date: 11/30/21 - Chief Complaint back pain - History of Present Illness 76 y/o male with hx of gout, BPH, myelodysplastic syndrome, HTN here s/p L3-L5 decompression and fusion. Prior to surgery was having back pain combined with numbness/tingling in his LE b/l as well as weakness. Patient was seen po stoperatively, currently doing well. He denied having chest pain, shortness of breath. No fevers or chills. Back pain is under control. Review of Systems Complete review of system performed, pertinent positives per HPI, otherwise negative Past Medical History Past Medical History: Hyperlipidemia, Hypertension, Musculoskeletal Disorder, Osteoarthritis (OA), Prostate Disorder Additional Past Medical History / Comment(s): Enlarged Prostate, numbness in buttocks, penis & legs, frequent back pain History of Any Multi-Drug Resistant Organisms: None Reported Past Surgical History: Back Surgery, Tonsillectomy Additional Past Surgical History / Comment(s): cervical fusion in 2020 Past Anesthesia/Blood Transfusion Reactions: No Reported Reaction Smoking Status: Former smoker - Past Family History Father Family Medical History: Cancer Medications and Allergies Home Medications Medication Instructions Recorded Confirmed Type Cholecalciferol [Vitamin D3 (25 25 mcg PO DAILY 07/06/21 11/29/21 History Mcg = 1000 Iu)] DULoxetine HCL [Cymbalta] 30 mg PO DAILY 07/06/21 11/29/21 History Ezetimibe [Zetia] 10 mg PO DAILY 07/06/21 11/29/21 History Ibuprofen [Motrin] 800 mg PO Q8H PRN 07/06/21 11/27/21 History Pravastatin Sodium [Pravachol] 10 mg PO HS 07/06/21 11/29/21 History Tamsulosin [Flomax] 0.4 mg PO HS 07/06/21 11/29/21 History amLODIPine [Norvasc] 10 mg PO QAM 07/06/21 11/29/21 History traMADol HCL 50 mg PO TID PRN 07/06/21 11/29/21 History Potassium Chloride [Klor-Con 10 ER] 10 meq PO DAILY 11/27/21 11/29/21 History Psyllium Husk [Metamucil] 0.4 gm PO DAILY PRN 11/28/21 11/29/21 History polyethylene glycoL 3350 [Miralax] 17 gm PO DAILY PRN 11/28/21 11/29/21 History Allergies Allergy/AdvReac Type Severity Reaction Status Date / Time codeine AdvReac Nausea & Verified 11/29/21 10:48 Vomiting Physical Exam Vitals: Vital Signs Temp Pulse Pulse Resp BP BP Pulse Ox 11/30/21 12:58 98.7 F 87 18 167/80 97 11/30/21 08:33 98.0 F 105 H 17 167/80 93 L 11/30/21 04:01 98.2 F 95 16 169/89 95 11/30/21 00:02 97.8 F 98 16 156/75 95 11/29/21 23:15 107 H 163/79 11/29/21 23:00 100 156/86 11/29/21 22:45 98 166/87 11/29/21 22:30 110 H 146/75 11/29/21 22:15 111 H 131/74 11/29/21 22:00 16 11/29/21 21:57 98.3 F 118 H 16 155/89 96 11/29/21 21:20 105 H 16 140/81 94 L 11/29/21 21:00 100 16 142/76 98 11/29/21 20:45 99 16 126/72 97 11/29/21 20:30 113 H 16 121/73 98 11/29/21 20:15 114 H 16 122/68 97 11/29/21 20:00 102 H 16 133/64 96 11/29/21 19:45 98 18 129/73 96 11/29/21 19:30 110 H 16 132/77 95 11/29/21 19:15 105 H 17 141/59 97 11/29/21 19:00 98 16 142/89 97 11/29/21 18:45 89 18 131/72 98 11/29/21 18:29 97 16 122/84 99 Intake and Output 11/29/21 11/30/21 11/30/21 22:59 06:59 14:59 Intake Total 1500 1300 Output Total 660 3200 300 Balance 840 -1900 -300 Intake: IV 1500 Intake, IV Titration 700 Amount Lactated Ringers 1,000 ml 600 @ 50 mls/hr IV .Q20H [facility] Rx#:[id number] ceFAZolin 2 gm In Sodium 100 Chloride 0.9% 50 ml @ 100 mls/hr IVPB ONCE PRN Rx# :[id number] Oral 600 Output: Drainage 200 300 Lower Back 200 300 Urine 310 3000 Estimated Blood Loss 350 Other: Voiding Method Indwelling Catheter Toilet Urinal Constitutional: No acute distress, conversant, pleasant Eyes:Anicteric sclerae, moist conjunctiva, no lid-lag, PERRLA, ENMT: Oropharynx clear, no erythema, exudates Neck: Supple, FROM, no masses, or JVD, No carotid bruits, No thyromegaly Lungs: Clear to auscultation, Clear to percussion, Normal respiratory effort, no accessory muscle use Cardiovascular: Heart regular in rate and rhythm, No murmurs, gallops, or rubs, No peripheral edema Abdominal: Soft, Nontender, no guarding, rebound or rigidity, Normoactive bowel sounds, No hepatomegaly, No splenomegaly, No palpable mass Skin: Normal temperature, tone, texture, turgor, no induration, No subcutaneous nodules, No rash, lesions, No ulcers Extremities: No digital cyanosis, No clubbing, Pedal pulses intact and symmetrical, Radial pulses intact and symmetrical, No calf tenderness Psychiatric: Alert and oriented to person, place and time, appropriate affect, intact judgement Neuro: Muscles Strength 5/5 in all 4 extremities, Sensation to light touch grossly present throughout, Cranial nerves II-XII grossly intact, no focal sensory deficits Results CBC & Chem 7: 11/30/21 05:45 11/29/21 11:00 Labs: Abnormal Lab Results - Last 24 Hours (Table) 11/30/21 Range/Units 05:45 WBC 11.87 H (4.50-10.00) X 10*3/uL RBC 3.97 L (4.40-5.60) X 10*6/uL Hgb 11.4 L (13.0-17.0) g/dL Hct 33.0 L (39.6-50.0) % Neutrophils # 9.48 H (1.80-7.70) X 10*3/uL Eosinophils # 0.01 L (0.04-0.35) X 10*3/uL Assessment and Plan Plan: Postoperative day #1 status post L3 to L5 fusion. Pain control and DVT prophylaxis per surgery. History of gout Benign prostatic hypertrophy Hypertension, essential Hyperlipidemia All stable Resume meds
[2021-11-30] MEDS: CYCLOBENZAPRINE 10 MG TAB PO SCH (20:35)
[2021-11-30] MEDS: TAMSULOSIN 0.4 MG CAP.ER.24H PO SCH (20:35)
[2021-11-30] MEDS: PRAVASTATIN SODIUM 20 MG TAB PO SCH (21:26)
[2021-12-01] MEDS: LACTATED RINGERS 1,000 ML IV SCH ×3 (01:22→23:48)
[2021-12-01] MEDS: HYDROmorphone 1 MG/ML 1 ML SYRINGE IVP PRN (03:56)
[2021-12-01] MEDS: ACETAMINOPHEN TAB 325 MG TAB PO SCH ×4 (05:32→23:47)
[2021-12-01] MEDS: HYDROcodone/APAP 10-325MG 1 EACH TAB PO PRN ×3 (07:43→20:01)
[2021-12-01] MEDS: EZETIMIBE 10 MG TAB PO SCH (10:10)
[2021-12-01] MEDS: CHOLECALCIFEROL 25 MCG (1000 IU) TABLET PO SCH (10:10)
[2021-12-01] MEDS: POTASSIUM CHLORIDE ER 10 MEQ TAB.ER.PRT PO SCH (10:10)
[2021-12-01] MEDS: DULoxetine HCL 30 MG CAPSULE.DR PO SCH (10:10)
[2021-12-01] MEDS: amLODIPine 10 MG TAB PO SCH (10:11)
--- NOTE | 2021-12-01 11:37 | P.PN ---
Subjective Progress Note Date: 12/01/21 Principal diagnosis: L3 4 spondylolisthesis, neurogenic claudication, L3 to 5 spondylosis with severe stenosis Patient seen and examined is doing very well sitting up in chair eating breakfast. States he would like to go home. The drain is still in place and had somewhat increased output over yesterday and last night at 240 mL we discussed keeping the drain for today putting antigravity and then possibly sending the patient home tomorrow. Him and his are amenable to this. He denies any bowel or bladder issues denies any perineal numbness or tingling at this time states he is doing better today. Denies any fevers or chills. Objective - Vital Signs Vital signs: Vital Signs Temp 98.6 F 12/01/21 04:08 Pulse 97 12/01/21 04:08 Resp 18 12/01/21 04:08 BP 166/86 12/01/21 04:08 Pulse Ox 95 12/01/21 04:08 Intake & Output 11/30/21 12/01/21 12/01/21 18:59 06:59 18:59 Intake Total 600 Output Total 300 275 Balance -300 325 Intake: Oral 600 Output: Drainage 300 275 Lower Back 300 275 Other: Voiding Method Toilet Toilet Urinal Urinal # Voids 2 5 - Exam Exam is repeated today changes noted below. Patient is alert and oriented 3 appears well-nourished well-hydrated is in no acute distress. They does not appear septic. On exam the patient has no tenderness to palpation of her thoracic or lumbar spine. There is no edema or ballottement sign. Lower extremities with 4+ out of 5 strength in all major muscle groups no focal deficits Upper extremities show 4+/5 strength in all major muscle groups. No focal deficits There is FROM that is painless of the b/l UE and LE in all major joints. They are intact to light touch sensation in L2 to S1 nerve distribution. Patient has palpable dorsalis pedis was posterior tibial pulses. Compartments are soft and compressible. Patient shows a negative Homans, Donaldson's, negative Babinski's negative clonus bilaterally. negative straight leg raise bilaterally. No tensioning signs. Cranial nerves II through XII are grossly intact. Overall alignment is well-maintained in the sagittal coronal planes. Dressing and incision are clean dry and intact drain is in place with 240 mL 24 hours - Constitutional General appearance: Present: cooperative - Labs CBC & Chem 7: 11/30/21 05:45 11/29/21 11:00 Assessment and Plan Assessment: 76-year-old male status post L3 to 5 decompression fusion 1. History C3-C6 ACDF and C2-T2 decompression and fusion 2. 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 Neurogenic claudication 4. Continued myelopathy-improving 5. Genital numbness 6. LE radiculopathy b/l 7. Impending Cauda, resolved Plan: -Appreciate senior analytic consultant and team management. -Activity: Ambulate QID, OOB all meals, up and about, limit lifting bending twisting to less than 5 lbs. Use walker or cane if needed for stability. -Daily PT/OT, increase ambulation strength and balance. -Brace when up and about, not needed in bed or chair -Pain control: Adequate at this time -Meds: reviewed -GI ppx: senna, Miralax -DVT PPX: Continue heparin teds and SCDs -Hygiene: Shower today. Maintain dressing clean and dry. Meticulous cleaning after BMs away from incision site -Drains: Maintain for now. Record output. Likely DC tomorrow -Encourage IS 10x/hr -Dispo: Home with home health care tomorrow
--- NOTE | 2021-12-01 15:40 | P.PN ---
Subjective Progress Note Date: 12/01/21 Principal diagnosis: back pain Feeling like he wants to urinate but no urine comes out. He is urinating frequently. He was told the bladder can get weaker from the surgery, pain meds. PVR is around 200. Objective - Vital Signs Vital signs: Vital Signs Temp 98.0 F 12/01/21 13:00 Pulse 83 12/01/21 13:00 Resp 16 12/01/21 13:00 BP 163/79 12/01/21 13:00 Pulse Ox 93 L 12/01/21 13:00 Intake & Output 11/30/21 12/01/21 12/01/21 18:59 06:59 18:59 Intake Total 600 Output Total 300 275 Balance -300 325 Intake: Oral 600 Output: Drainage 300 275 Lower Back 300 275 Other: Voiding Method Toilet Toilet Toilet Urinal Urinal Urinal # Voids 2 5 - Exam Constitutional: No acute distress, conversant, pleasant Eyes:Anicteric sclerae, moist conjunctiva, no lid-lag, PERRLA, ENMT: Oropharynx clear, no erythema, exudates Neck: Supple, FROM, no masses, or JVD, No carotid bruits, No thyromegaly Lungs: Clear to auscultation, Clear to percussion, Normal respiratory effort, no accessory muscle use Cardiovascular: Heart regular in rate and rhythm, No murmurs, gallops, or rubs, No peripheral edema Abdominal: Soft, Nontender, no guarding, rebound or rigidity, Normoactive bowel sounds, No hepatomegaly, No splenomegaly, No palpable mass Skin: Normal temperature, tone, texture, turgor, no induration, No subcutaneous nodules, No rash, lesions, No ulcers Extremities: No digital cyanosis, No clubbing, Pedal pulses intact and symmetrical, Radial pulses intact and symmetrical, No calf tenderness Psychiatric: Alert and oriented to person, place and time, appropriate affect, intact judgement Neuro: Muscles Strength 5/5 in all 4 extremities, Sensation to light touch grossly present throughout, Cranial nerves II-XII grossly intact, no focal sensory deficits - Labs CBC & Chem 7: 11/30/21 05:45 11/29/21 11:00 Assessment and Plan Plan: Postoperative day #2 status post L3 to L5 fusion. Pain control and DVT prophylaxis per surgery. Urinary retention PVR is around 200. Straight cath if PVR >400 History of gout Benign prostatic hypertrophy Hypertension, essential Hyperlipidemia All stable Resume meds
[2021-12-01] MEDS: TAMSULOSIN 0.4 MG CAP.ER.24H PO SCH (20:00)
[2021-12-01] MEDS: CYCLOBENZAPRINE 10 MG TAB PO SCH (20:01)
[2021-12-01] MEDS: PRAVASTATIN SODIUM 20 MG TAB PO SCH (20:01)
[2021-12-01 22:44] VITALS: RESP 20
[2021-12-02] MEDS: HYDROcodone/APAP 10-325MG 1 EACH TAB PO PRN ×2 (02:29→08:29)
[2021-12-02 04:34] VITALS: TEMP 97.8
[2021-12-02] MEDS: ACETAMINOPHEN TAB 325 MG TAB PO SCH ×2 (06:14→13:22)
[2021-12-02] MEDS: POTASSIUM CHLORIDE ER 10 MEQ TAB.ER.PRT PO SCH (08:29)
[2021-12-02 08:33] VITALS: BP 116/74; PULSE 96
[2021-12-02] MEDS: EZETIMIBE 10 MG TAB PO SCH (08:34)
[2021-12-02] MEDS: DULoxetine HCL 30 MG CAPSULE.DR PO SCH (08:34)
[2021-12-02] MEDS: CHOLECALCIFEROL 25 MCG (1000 IU) TABLET PO SCH (08:34)
[2021-12-02] MEDS: amLODIPine 10 MG TAB PO SCH (08:34)
--- NOTE | 2021-12-02 11:31 | P.DS ---
Providers Date of admission: 11/29/21 10:24 Expected date of discharge: 12/02/21 Attending physician: Gaurang Armijo DO Consults: 11/29/21 18:04 Consult Physician Routine Consulting Provider: Renita Rehman Consult Reason/Comments: Medical Management s/p L3-L5 decompression/fusion Do you want consulting provider notified?: Yes Primary care physician: Jeremie Lomeli MD Hospital Course: Date of admission: 11/29/2021 Date of discharge: 12/02/2021 Admission diagnosis: 1. S/P C3-C6 ACDF and C2-T2 decompression and fusion 2. 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 Neurogenic claudication 4. Continued myelopathy-improving 5. Genital numbness 6. LE radiculopathy b/l 7. Impending Cauda Discharge diagnosis: Same Attending physician: Dr. Armijo Surgical procedures: L3-L5 decompression fusion Brief history: Patient is a 76-year-old male with a history of severe stenosis L3-L5 with severe spondylosis, facet arthrosis; neurogenic claudications; continue myelopathy; genital numbness; lower extremity radiculopathy bilaterally. At this point patient has failed conservative treatment measures and has opted to proceed with a elective L3-L5 decompression and fusion. Hospital course: Details of patient's surgery can be found in operative report. Patient tolerated the procedure well and was subsequently transported to orthopedic floor. Patient's orthopeidc and medical care was provided daily. Patient had daily laboratory tests performed for evaluation of overall blood counts. Patient had daily physical therapy to include strengthening range of motion as well as education with walker ambulation. Patient was noted to have a relatively uneventful postoperative course. Patient reported satisfactory pain control with oral pain medications by postoperative day 3. Patient showed satisfactory progress with physical therapy. Patient moved steadily through the program and had no difficulty meeting the goals by postoperative day 3. Given patient's otherwise satisfactory course and having met physical therapy goals, plan is to discharge patient home on postoperative day 3. Discharge condition/disposition: Patient will be discharged home in stable condition. Discharge medications: Instructions are given on resumption of patient's normal daily medications per primary care recommendation, in addition patient will be prescribed Vadito 5 mg/325 mg; gabapentin 300 mg 3 times a day; Duricef; Colace; cyclobenzaprine. Spine Discharge and Recovery Instructions Date of Surgery: 11/29/2021 Diagnosis: 1. S/P C3-C6 ACDF and C2-T2 decompression and fusion 2. 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 Neurogenic claudication 4. Continued myelopathy-improving 5. Genital numbness 6. LE radiculopathy b/l 7. Impending Cauda Procedure: L3-L5 decompression and fusion Medications: See medication list All medication refills should be obtained through your primary care doctor or your clinic spine surgeon. Please discuss prescription refills at your follow up appointment. Do not call the hospital for medication refills. Dressing: Leave your dressing in place for a total of 5 days post operatively. Then you may remove your dressing and leave open to air. Keep the area clean and if not able to keep area clean, then cover with sterile gauze and tape. Showering: You may shower 3 days after your procedure allowing soap and water to run over incision. Do not scrub. Do not soak. Blot dry. Follow up: Please confirm a follow up appointment with your surgeon 3 weeks post operatively. Please make an appointment to follow up with your PCP in 1-2 weeks after surgery for evaluation 3 phase, 3-week plan POST OP WEEKS 1-3 1. Lifting/carrying/pushing/pulling limited to less than 5 pounds. 2. Do not sit for longer than 15 minutes at one time. Get up and walk around. Prolonged sitting is NOT advised. If you lay down, see if you can tolerate laying down on you front (belly side) 3. Walk for periods of 15 minutes = 1 mile but no longer; do it multiple times times each day. 4. Ice your low back after activity. POST OP WEEKS 3-6 1. Lifting limited to less than 20 pounds. 2. Do not sit for longer than 30 minutes at a time. Frequently change positions. Use a sit-to stand workstation or take frequent breaks from sitting if you have returned to work. 3. Walk for 30 minutes each day. If possible, do these three or more times a day POST OP WEEKS 6+ At your 6-week appointment we will give you a physical therapy referral to focus on a core stabilization and strengthening program. You should also work on leg & buttock strengthening, hamstring & quadriceps stretching, and continue a low impact aerobic activity program such as swimming, walking, or riding a stationary bicycle. During the initial 6 weeks after your surgery, you are at the highest risk of re-injuring your spine. You should generally avoid BLTs (bending, lifting and twisting combination motions) and follow the above guidelines to reduce the chance of reinjury. You can anticipate post op appointments in our office at approximately 3 weeks and 6 weeks after your surgery. INCISION CARE: If your incision is not draining you do NOT need to cover it with a dressing. Keep your incision clean, dry and intact. In most cases, we apply skin glue, miguelito or sutures to the incision at the time of surgery. This will be like a crust or have the appearance of a scab and will fall off in time on its own. The stitches or miguelito need to be removed at 3 weeks post op appointment. You may begin to shower 3 days after surgery (this allows the glue to rodriguez well). However, please avoid scrubbing the incision site or peeling off any of the skin glue. This will ensure optimal healing of your incision. Also, during this time avoid soaking the incision area in water - this includes swimming pools, hot tubs or baths. No ointments, lotions or oils on the incision until your surgeon allows. Leave miguelito, sutures or glue in place. Neurological dysfunction that comes on suddenly can also be a sign of a stroke. Below some common symptoms of a stroke are listed: B - balance difficulty such as sudden onset walking or leaning to one side - NEW E - eye problem such as sudden double vision or trouble seeing on one side - NEW F - Facial weakness or numbness on one side - NEW A - Arm or leg weakness or numbness on one side - NEW S - Slurred speech or difficulty with word finding - NEW T - Time is BRAIN! Call 911 as soon as you recognize these symptoms Diet: Consume a regular diet rich in vegetables and lean protein such as chicken or fish. You should consume in a ratio of approximately 20% fats|40% carbohydrates|40%protein. Vegetables, sweet potatoes, brown rice or quinoa are examples of good carbohydrates. Chips, white bread, cookies and sweets/sugar are examples of bad carbohydrates. Limit your bad carbs, go wild with good ca rbs. 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 (1) Get Active. Physical activity can help people lose weight, control high blood pressure and cholesterol, feel emotionally better, and sleep better. (2) Control Cholesterol. Avoid a diet high in saturated fat, trans fat, & cholesterol. Limit whole milk & cream, ice cream, butter, egg yolks, processed meats (like sausage and hot dogs), and fatty meats. Choose healthy foods that are low in saturated fat, trans fat and cholesterol which include: Fruits and vegetables, fiber rich grain products (like whole grain pasta and brown rice), lean meat such as chicken, fish, nuts, seeds, and legumes. (3) Eat Better. Eat small portions. Shop at the grocery with a list and do not stray from it. Tips for a healthy diet include: Limit sodium intake to less than 1500mg daily, avoid prepackaged, processed, and fast foods, choose a diet rich in fruits, vegetables, and whole grain, high fiber foods, and limit saturated & cholesterol in your diet. (4) Manage Blood Pressure. If you have high blood pressure, you should have a cuff at home so that you can check your blood pressure regularly. Be sure you have a good cuff. An arm one is generally better than a wrist one. Bring the cuff to a doctor's appointment to validate that the measurements that your cuff are taking are accurate. Take your blood pressure twice daily when you are sitting down and relaxing. Record the numbers in a log and bring this log with you to your doctors' appointments. (5) Lose Weight if your BMI is above 25. A healthy BMI is between 19-25. To calculate Your BMI, you may use a Standard BMI Calculator on the NIH BMI website: <www.nhlbi.nih.gov/guidelines/obesity/BMI/bmicalc.htm>. Weigh oneself daily. If you are overweight, set a goal to lose weight. A pound a week loss if needed is a good target. (6) Reduce Blood Sugar. Limit foods and liquids with "added sugars." (Added sugars include sucrose, fructose, glucose, maltose, dextrose, high fructose corn syrup, corn syrup, concentrated fruit juice and honey). (7) Stop Smoking. If you smoke, quitting smoking is one of the best things that you can do for your health. Smoking increases your risk of heart attack, stroke, and peripheral vascular disease, which is a build-up of plaque in your arteries. Please discard all the cigarettes and lighters in your house. Have a plan for what you will do when you have the urge to smoke. Direct and second- hand smoke shortens your life as well as the lives of your family, friends and others around you. For your health and the health of those around you, please consider quitting! Proper Bending Body Mechanics: Maintain a wide stance with one foot slightly in front of the other. Keep your back straight. Bend utilizing the strength in your hips and knees. Do not bend at the waist. Maintain the lifted object at your waist-level close to your body. Avoid lifting weight that causes immediately pain or pain anywhere in the body afterwards. Smoking/Nicotine If there was ever one thing that you could do to increase your overall health, decrease your risk of cardiovascular problems by about 39% the second you make the choice, it is to STOP SMOKING. Your body's most instant gratification is the second you stop smoking. We have all heard the studies, read the articles but it is true, smoking is extremely bad for your overall health, and moreover it is detrimental to your bone health. Nicotine, IN ANY FORM, kills bone cells, prevents your body from healing fractures, and significantly prolongs healing after surgery. In spine surgery specifically, it increases your risk of not healing your bones to create a fusion and increases your risk of having a revision surgery due to this up to 60%. I know it is hard. I know it feels impossible. But there are ways. Take control of your life. We are here to help you through it. And when you are ready, ask us and we can direct you to help if you desire. Use the START Plan to Quit Smoking (please visit the Helpguide.org website listed below for more information): S = Set a quit date. Choose a date within the next 2 weeks, so you have enough time to prepare without losing your motivation to quit. If you mainly smoke at work, quit on the weekend, so you have a few days to adjust to the change. T = Tell family, friends, and co-workers that you plan to quit. Let your friends and family in on your plan to quit smoking and tell them you need their support and encouragement to stop. Look for a quit davina who wants to stop smoking as well. You can help each other get through the rough times. A = Anticipate and plan for the challenges you'll face while quitting. Most people who begin smoking again do so within the first 3 months. You can help yourself make it through by preparing ahead for common challenges, such as nicotine withdrawal and cigarette cravings. R = Remove cigarettes and other tobacco products from your home, car, and work. Throw away all your cigarettes (no emergency pack!), lighters, ashtrays, and matches. Wash your clothes and freshen up anything that smells like smoke. Shampoo your car, clean your drapes and carpet, and steam your furniture. T = Talk to your doctor about getting help to quit. Your doctor can prescribe medication to help with withdrawal and suggest other alternatives. If you can't see a doctor, you can get many products over the counter at your local pharmacy or grocery store, including the nicotine patch, nicotine lozenges, and nicotine gum. Resources for Quitting Smoking: <https://www.[place].gov/documents/[facility]/Quit_Tobacco_Resources_for_patients_313 480_7.pdf> Supplementation: Take recommended dosages of Vitamin D and Calcium to help fortify your bones and help them to heal. See your health maintenance packet for dosages and recommended levels. DVT/VTE prophylaxis: You will be given compression stockings from the hospital. Wear these daily for the first two weeks after surgery. You may take them off at night. You may be prescribed a medication to help thin your blood. Take this as directed. If you are not prescribed this medication, early and frequent ambulation has been shown to be the best prophylaxis to deep vein thrombosis and sequelae related to this event. Assessment: 1. S/P C3-C6 ACDF and C2-T2 decompression and fusion 2. 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 Neurogenic claudication 4. Continued myelopathy-improving 5. Genital numbness 6. LE radiculopathy b/l 7. Impending Cauda Procedures: L3-L5 decompression fusion Patient Condition at Discharge: Good Plan - Discharge Summary Discharge Rx Participant: Yes New Discharge Prescriptions: New cefaDROXiL [Duricef] 500 mg PO Q12HR 5 Days #10 cap Cyclobenzaprine [Flexeril] 5 mg PO TID #30 tablet HYDROcodone/APAP 5-325MG [Vadito 5-325] 1 tab PO Q6HR PRN #36 tab PRN Reason: Pain Sennosides/Docusate Sodium [Senna Plus 8.6-50 mg Tablet] 1 each PO DAILY #20 tablet Gabapentin 300 mg PO TID 3 Days #42 cap No Action Tamsulosin [Flomax] 0.4 mg PO HS Ibuprofen [Motrin] 800 mg PO Q8H PRN PRN Reason: Pain DULoxetine HCL [Cymbalta] 30 mg PO DAILY traMADol HCL 50 mg PO TID PRN PRN Reason: Pain Potassium Chloride [Klor-Con 10 ER] 10 meq PO DAILY polyethylene glycoL 3350 [Miralax] 17 gm PO DAILY PRN PRN Reason: Constipation Cholecalciferol [Vitamin D3 (25 Mcg = 1000 Iu)] 25 mcg PO DAILY amLODIPine [Norvasc] 10 mg PO QAM Pravastatin Sodium [Pravachol] 10 mg PO HS Ezetimibe [Zetia] 10 mg PO DAILY Psyllium Husk [Metamucil] 0.4 gm PO DAILY PRN PRN Reason: Constipation Discharge Medication List Cholecalciferol [Vitamin D3 (25 Mcg = 1000 Iu)] 25 mcg PO DAILY 07/06/21 [History] DULoxetine HCL [Cymbalta] 30 mg PO DAILY 07/06/21 [History] Ezetimibe [Zetia] 10 mg PO DAILY 07/06/21 [History] Ibuprofen [Motrin] 800 mg PO Q8H PRN 07/06/21 [History] Pravastatin Sodium [Pravachol] 10 mg PO HS 07/06/21 [History] Tamsulosin [Flomax] 0.4 mg PO HS 07/06/21 [History] amLODIPine [Norvasc] 10 mg PO QAM 07/06/21 [History] traMADol HCL 50 mg PO TID PRN 07/06/21 [History] Potassium Chloride [Klor-Con 10 ER] 10 meq PO DAILY 11/27/21 [History] Psyllium Husk [Metamucil] 0.4 gm PO DAILY PRN 11/28/21 [History] polyethylene glycoL 3350 [Miralax] 17 gm PO DAILY PRN 11/28/21 [History] Cyclobenzaprine [Flexeril] 5 mg PO TID #30 tablet 12/02/21 [Rx] Gabapentin 300 mg PO TID 3 Days #42 cap 12/02/21 [Rx] HYDROcodone/APAP 5-325MG [Vadito 5-325] 1 tab PO Q6HR PRN #36 tab 12/02/21 [Rx] Sennosides/Docusate Sodium [Senna Plus 8.6-50 mg Tablet] 1 each PO DAILY #20 tablet 12/02/21 [Rx] cefaDROXiL [Duricef] 500 mg PO Q12HR 5 Days #10 cap 12/02/21 [Rx] Follow up Appointment(s)/Referral(s): Gaurang Armijo DO [Doctor of Osteopathic Medicine] - 2 Weeks Activity/Diet/Wound Care/Special Instructions: Spine Discharge and Recovery Instructions dressing may be removed 12/04/2021 Date of Surgery: 11/29/2021 Diagnosis: L3 4 grade 1 spondylolisthesis L3 to 5 severe stenosis neurogenic claudication Procedure: L3 5 decompression fusion Medications: Sent to pharmacy All medication refills should be obtained through your primary care doctor or your clinic spine surgeon. Please discuss prescription refills at your follow up appointment. Do not call the hospital for medication refills. Dressing: Leave your dressing in place for a total of 3 days post operatively. Then you may remove your dressing and leave open to air. Keep the area clean and if not able to keep area clean, then cover with sterile gauze and tape. Showering: You may shower 3 days after your procedure allowing soap and water to run over incision. Do not scrub. Do not soak. Blot dry. Follow up: Please confirm a follow up appointment with your surgeon 2 weeks post operat ively. Please make an appointment to follow up with your PCP in 1-2 weeks after surgery for evaluation 3 phase, 3-week plan POST OP WEEKS 1-3 1. Lifting/carrying/pushing/pulling limited to less than 5 pounds. 2. Do not sit for longer than 15 minutes at one time. Get up and walk around. Prolonged sitting is NOT advised. If you lay down, see if you can tolerate laying down on you front (belly side) 3. Walk for periods of 15 minutes = 1 mile but no longer; do it multiple times times each day. 4.Ice your low back after activity. POST OP WEEKS 3-6 1. Lifting limited to less than 20 pounds. 2. Do not sit for longer than 30 minutes at a time. Frequently change positions. Use a sit-to stand workstation or take frequent breaks from sitting if you have returned to work. 3. Walk for 30 minutes each day. If possible, do these three or more times a day POST OP WEEKS 6+ At your 6-week appointment we will give you a physical therapy referral to focus on a core stabilization and strengthening program. You should also work on leg & buttock strengthening, hamstring & quadriceps stretching, and continue a low impact aerobic activity program such as swimming, walking, or riding a stationary bicycle. During the initial 6 weeks after your surgery, you are at the highest risk of re-injuring your spine. You should generally avoid BLTs (bending, lifting and twisting combination motions) and follow the above guidelines to reduce the chance of reinjury. You can anticipate post op appointments in our office at approximately 3 weeks and 6 weeks after your surgery. INCISION CARE: If your incision is not draining you do NOT need to cover it with a dressing. Keep your incision clean, dry and intact. In most cases, we apply skin glue, miguelito or sutures to the incision at the time of surgery. This will be like a crust or have the appearance of a scab and will fall off in time on its own. The stitches or miguelito need to be removed at 3 weeks post op appointment. You may begin to shower 3 days after surgery (this allows the glue to rodriguez well). However, please avoid scrubbing the incision site or peeling off any of the skin glue. This will ensure optimal healing of your incision. Also, during this time avoid soaking the incision area in water - this includes swimming pools, hot tubs or baths. No ointments, lotions or oils on the incision until your surgeon allows. Leave miguelito, sutures or glue in place. Neurological dysfunction that comes on suddenly can also be a sign of a stroke. Below some common symptoms of a stroke are listed: B - balance difficulty such as sudden onset walking or leaning to one side - NEW E - eye problem such as sudden double vision or trouble seeing on one side - NEW F - Facial weakness or numbness on one side - NEW A - Arm or leg weakness or numbness on one side - NEW S - Slurred speech or difficulty with word finding - NEW T - Time is BRAIN! Call 911 as soon as you recognize these symptoms Diet: Consume a regular diet rich in vegetables and lean protein such as chicken or fish. You should consume in a ratio of approximately 20% fats|40% carbohydrates|40%protein. Vegetables, sweet potatoes, brown rice or quinoa are examples of good carbohydrates. Chips, white bread, cookies and sweets/sugar are examples of bad carbohydrates. Limit your bad carbs, go wild with good carbs. 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 (1) Get Active. Physical activity can help people lose weight, control high blood pressure and cholesterol, feel emotionally better, and sleep better. (2) Control Cholesterol. Avoid a diet high in saturated fat, trans fat, & cholesterol. Limit whole milk & cream, ice cream, butter, egg yolks, processed meats (like sausage and hot dogs), and fatty meats. Choose healthy foods that are low in saturated fat, trans fat and cholesterol which include: Fruits and vegetables, fiber rich grain products (like whole grain pasta and brown rice), lean meat such as chicken, fish, nuts, seeds, and legumes. (3) Eat Better. Eat small portions. Shop at the grocery with a list and do not stray from it. Tips for a healthy diet include: Limit sodium intake to less than 1500mg daily, avoid prepackaged, processed, and fast foods, choose a diet rich in fruits, vegetables, and whole grain, high fiber foods, and limit saturated & cholesterol in your diet. (4) Manage Blood Pressure. If you have high blood pressure, you should have a cuff at home so that you can check your blood pressure regularly. Be sure you have a good cuff. An arm one is generally better than a wrist one. Bring the cuff to a doctor's appointment to validate that the measurements that your cuff are taking are accurate. Take your blood pressure twice daily when you are sitting down and relaxing. Record the numbers in a log and bring this log with you to your doctors' appointments. (5) Lose Weight if your BMI is above 25. A healthy BMI is between 19-25. To calculate Your BMI, you may use a Standard BMI Calculator on the NIH BMI website: <www.nhlbi.nih.gov/guidelines/obesity/BMI/bmicalc.htm>. Weigh oneself daily. If you are overweight, set a goal to lose weight. A pound a week loss if needed is a good target. (6) Reduce Blood Sugar. Limit foods and liquids with "added sugars." (Added sugars include sucrose, fructose, glucose, maltose, dextrose, high fructose corn syrup, corn syrup, concentrated fruit juice and honey). (7) Stop Smoking. If you smoke, quitting smoking is one of the best things that you can do for your health. Smoking increases your risk of heart attack, stroke, and peripheral vascular disease, which is a build-up of plaque in your arteries. Please discard all the cigarettes and lighters in your house. Have a plan for what you will do when you have the urge to smoke. Direct and second- hand smoke shortens your life as well as the lives of your family, friends and others around you. For your health and the health of those around you, please consider quitting! Proper Bending Body Mechanics: Maintain a wide stance with one foot slightly in front of the other. Keep your back straight. Bend utilizing the strength in your hips and knees. Do not bend at the waist. Maintain the lifted object at your waist-level close to your body. Avoid lifting weight that causes immediately pain or pain anywhere in the body afterwards. Smoking/Nicotine If there was ever one thing that you could do to increase your overall health, decrease your risk of cardiovascular problems by about 39% the second you make the choice, it is to STOP SMOKING. Your body's most instant gratification is the second you stop smoking. We have all heard the studies, read the articles but it is true, smoking is extremely bad for your overall health, and moreover it is detrimental to your bone health. Nicotine, IN ANY FORM, kills bone cells, prevents your body from healing fractures, and significantly prolongs healing after surgery. In spine surgery specifically, it increases your risk of not healing your bones to create a fusion and increases your risk of having a revision surgery due to this up to 60%. I know it is hard. I know it feels impossible. But there are ways. Take control of your life. We are here to help you through it. And when you are ready, ask us and we can direct you to help if you desire. Use the START Plan to Quit Smoking (please visit the Helpguide.org website listed below for more information): S = Set a quit date. Choose a date within the next 2 weeks, so you have enough time to prepare without losing your motivation to quit. If you mainly smoke at work, quit on the weekend, so you have a few days to adjust to the change. T = Tell family, friends, and co-workers that you plan to quit. Let your friends and family in on your plan to quit smoking and tell them you need their support and encouragement to stop. Look for a quit davina who wants to stop smoking as well. You can help each other get through the rough times. A = Anticipate and plan for the challenges you'll face while quitting. Most people who begin smoking again do so within the first 3 months. You can help yourself make it through by preparing ahead for common challenges, such as nicotine withdrawal and cigarette cravings. R = Remove cigarettes and other tobacco products from your home, car, and work. Throw away all your cigarettes (no emergency pack!), lighters, ashtrays, and matches. Wash your clothes and freshen up anything that smells like smoke. Shampoo your car, clean your drapes and carpet, and steam your furniture. T = Talk to your doctor about getting help to quit. Your doctor can prescribe medication to help with withdrawal and suggest other alternatives. If you can't see a doctor, you can get many products over the counter at your local pharmacy or grocery store, including the nicotine patch, nicotine lozenges, and nicotine gum. Resources for Quitting Smoking: <https://www.[place].gov/documents/ [facility]/Quit_Tobacco_Resources_for_patients_313480_7.pdf> Supplementation: Take recommended dosages of Vitamin D and Calcium to help fortify your bones and help them to heal. See your health maintenance packet for dosages and recommended levels. DVT/VTE prophylaxis: You will be given compression stockings from the hospital. Wear these daily for the first two weeks after surgery. You may take them off at night. You may be prescribed a medication to help thin your blood. Take this as directed. If you are not prescribed this medication, early and frequent ambulation has been shown to be the best prophylaxis to deep vein thrombosis and sequelae related to this event. Discharge Disposition: HOME WITH HOME HEALTH SERVICES
--- NOTE | 2021-12-02 14:36 | P.PN ---
Subjective Progress Note Date: 12/02/21 Principal diagnosis: 1. S/P C3-C6 ACDF and C2-T2 decompression and fusion 2. 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 Neurogenic claudication 4. Continued myelopathy-improving 5. Genital numbness 6. LE radiculopathy b/l 7. Impending Cauda Patient seen at bedside this morning. Patient says his back pain is improving Patient says he is doing well and ready to go home. Patient denies chest pain, fever, shortness of breath, nausea, vomiting. Objective - Vital Signs Vital signs: Vital Signs Temp 97.8 F 12/02/21 04:33 Pulse 96 12/02/21 08:33 Resp 20 12/02/21 04:33 BP 116/74 12/02/21 08:33 Pulse Ox 96 12/02/21 08:33 Intake & Output 12/01/21 12/02/21 12/02/21 18:59 06:59 18:59 Intake Total 1300 Output Total 90 100 Balance -90 1300 -100 Intake: Intake, IV Titration 600 Amount Lactated Ringers 1,000 ml 600 @ 50 mls/hr IV .Q20H [facility] Rx#:[id number] Oral 700 Output: Drainage 90 100 Lower Back 90 100 Other: Voiding Method Toilet Toilet Toilet Urinal Urinal Urinal # Voids 6 3 - Exam Exam is repeated today changes noted below. Patient is alert and oriented 3 appears well-nourished well-hydrated is in no acute distress. They does not appear septic. On exam the patient has no tenderness to palpation of her thoracic or lumbar spine. There is no edema or ballottement sign. Lower extremities with 4+ out of 5 strength in all major muscle groups no focal deficits Upper extremities show 4+/5 strength in all major muscle groups. No focal deficits There is FROM that is painless of the b/l UE and LE in all major joints. They are intact to light touch sensation in L2 to S1 nerve distribution. Patient has palpable dorsalis pedis was posterior tibial pulses. Compartments are soft and compressible. Patient shows a negative Homans, Donaldson's, negative Babinski's negative clonus bilaterally. negative straight leg raise bilaterally. No tensioning signs. Cranial nerves II through XII are grossly intact. Overall alignment is well-maintained in the sagittal coronal planes. Dressing was changed. Incision is clean,dry, intact. drain was pulled and 4x4's and tegaderm was placed over area. New optifoam dressing was placed. - Labs CBC & Chem 7: 11/30/21 05:45 11/29/21 11:00 Assessment and Plan Assessment: 1. 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 Neurogenic claudication 3. Continued myelopathy-improving 4. Genital numbness 5. LE radiculopathy b/l Postoperative day #3 status post L3-L5 decompression fusion Plan: 1. 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 Appreciate medical management 3. Pain management - going home with [place] 5mg/325 mg; Flexeril 4. GI ppx - senna 5. Discharge planning - home today with health services Time with Patient: Less than 30
--- NOTE | 2021-12-03 12:04 | P.OP ---
Date of Procedure: 11/29/21 Preoperative Diagnosis: 1. S/P C3-C6 ACDF and C2-T2 decompression and fusion 2. 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 Neurogenic claudication 4. Continued myelopathy-improving 5. Genital numbness 6. LE radiculopathy b/l 7. Impending Cauda Postoperative Diagnosis: 1. S/P C3-C6 ACDF and C2-T2 decompression and fusion 2. 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 Neurogenic claudication 4. Continued myelopathy-improving 5. Genital numbness 6. LE radiculopathy b/l 7. Impending Cauda Procedure(s) Performed: 1. L3-5 posteriolateral instrumented fusion 2. L3-4 interbody fusion 3. L4-5 interbody fusion 4. L3-5 segmental instrumentation 5. L3 to 5 decompressive laminectomy complete facetectomy and foraminotomy bilateral 6. Use of intraoperative neuro monitoring 7. Interpretation of intraoperative fluoroscopy less than 1 hour Anesthesia: GETA Surgeon: Gaurang Armijo Rn Pediatric #1: Mani Waller (Was present and assisted in opening, instrumentation, interbody fusion, decompression and closures. ) Rn Pediatric #2: Neli Rabago (Was present as a scrubbed observer) Estimated Blood Loss (ml): 350 IV fluids (ml): 3,500 Urine output (ml): 550 Pathology: none sent Condition: stable Disposition: PACU Indications for Procedure: Spine Surgery Risk Review Bart Lyman is a 76-year-old male presenting for evaluation of low back pain and lower extremity weakness genital tingling. It was my pleasure to have seen and examined Bart Lyman. In our visit today we have had a chance to go over subjective complaints, physical examination findings and treatments including the natural course history without intervention and various interventional options. The patients imaging demonstrates L3-L4 grade 1 spondylolisthesis with L3 to L5 severe stenosis L4-L5 spondylosis. On physical exam, Bart Lyman demonstrates lower extremity weakness difficulty with ambulation radiculopathy beginning genital numbness and tingling. I have explained to the patient that as their condition progresses it will cause further neurological deficits and eventual paralysis. Based on the patients imaging, physical exam, and the rapid progression and disabling nature of their symptoms, at this time I recommend surgery in the form or a: L3 to L5 decompression fusion. I discussed the risk and benefits of this procedure at length with Bart Lyman. The patient and his agreed to considered pursuing the procedure abovementioned. Prior to surgery, she should follow up with her PCP (Cardio, ID, IM etc) for clearance. Questions were invited and answered, and the patient wishes to proceed as outlined below. Currently, I am recommendin. L3 to L5 posterior decompression and fusion 2. Follow up with PCP for surgical clearance 3. Review of surgical risks and benefits as well as an educational packet on the proposed surgical procedure. Risks: All surgical procedures come with inherent risks, including those related to positioning, anesthesia, intraoperative findings, and postoperative complications. It is important to understand that surgery does not come with any guarantee of a successful outcome as complications and adverse events are always possible. The patient was given a handout in office today discussing the surgical procedure and risks associated with the intervention, both of which were discussed with the patient. These risks include but are not limited to the following: * Experiencing same, different or even worse symptoms in back, neck, arms, or legs compared to before surgery. * Requiring further surgery or other forms of treatment presently or at some time in the future at same or other levels of the intended spine surgery. * On an extreme but fortunately relatively rare basis severe complication such as blindness, stroke, heart attack, temporary and/or permanent nerve injury, paralysis, coma, or may occur, sometimes without known explanation. * Surgical complications may include but are not limited to risk of infection, fluid accumulation in the surgical dissection site, including a seroma or hematoma, that requires additional surgery, wound drainage, bleeding, new numbness or weakness, vision changes/loss, spinal fluid leakage, non-healing and/or infected incision, headaches, difficulty or inability to swallow, hoarseness, hemopneumothorax, pneumothorax, impotence, retrograde ejaculation, vaginal dryness; injury to nerves, spinal cord, blood vessels, lymphatics or other vital organs (i.e., bowel injury, injury to the great vessels); heterotopic bone formation; complications related to the hardware such as screws, rods, cages including misplaced hardware, device failure, instrumentation at the wrong spine level, hardware fracture/breakage, or hardware loosening; vertebral failure of the spinal column above or below the newly placed hardware; retained surgical instrumentations or devices and the need for further surgery. * Medical risks of the planned spine surgery include but are not limited to generalized Infections to the whole body or local areas outside of the surgical site (sepsis), heart attack, bleeding, anaphylaxis, meningitis, seizure, epilepsy, hearing loss, burn [place], laceration of the head or other areas of the body, bruising, hypersensitivity of the skin, bladder over distension; allergic reaction; shoulder injury related to positioning; fat, bl ood and air clots to other areas of the body like heart, lungs, brain; failure of internal organs such as lungs, kidneys, liver and excessive bleeding. If blood transfusions are necessary, note that transfusions may cause intolerance reactions such as anaphylaxis or other complex reactions. * Despite best efforts, the results of spine surgery might not heal in terms of bone, soft tissues such as skin, fascia, ligaments, and joints. Additionally, in order to achieve best possible results, spine surgery may be carried out beyond the initially planned levels and involve decompression, fusion incl uding insertion of hardware at levels other than the original intended area of surgical interest change some portions of the procedure in order to ensure the best possible outcomes. * With spine surgery and spinal fusion, there are different off label uses of instrumentation (devices, implants and hardware) as well as biological substances (bone morphogenic proteins, demineralized bone matrix) as well as using extra bone from allograft sources (i.e. cadaver bone) or autograft (iliac crest bone, ribs, or the spine itself). The patient has been given information about these practices and their inherent risks and benefits. The patient has had a chance to review all the listed information, has been given print outs detailing this information, and has had all his/her questions answered to their satisfaction. It was my pleasure to have seen and examined Bart Lyman. In our visit today we have had a chance to go over my understanding of our patient's current condition, the natural course history without intervention and various interventional options. Questions were invited and answered, and the patient wishes to proceed as outlined above. I have seen and examined the patient for 25 minutes and we have spent more than 50% of the time in repeat and detailed counseling about the patient's condition, its natural course history with out and as much as can be predicted with surgery and re-review of various surgical treatment options. In conclusion, Bart Lyman and his requested we proceed with the above suggested surgery and are willing to accept risks and limitations of the suggested surgery as nature of the disease process and our best attempts at treatment for the condition. Thank you again for allowing us to be part of your patient's care. Please don't hesitate to contact me if you have any further questions. Signed and authenticated by: Gaurang Valadez N[facility] [address], [address] [place] [address] Description of Procedure: The patient was seen and examined in the preoperative area. All preoperative protocols were followed. Informed consent was obtained risks and benefits of the procedure were discussed at length. Risks including bleeding infection damage to the surrounding tissue and risk of reoperation were discussed with the patient. Risk of anesthesia up to and including was a discussed with the patient. These are outlined in the risk review. They were willing to accept these risks and all of the risks of surgery. The patient was given a weight- based dose of antibiotics in the form of 2 g Ancef. The patient was seen and evaluated by the anesthesia team who deemed them fit for surgery. The site was marked, the patient was willing to proceed with the procedure. The patient was transferred to the operative suite by the Department of anesthesia. They were then drifted off to sleep by the department anesthesia and GETA was performed. The patient tolerated this well. Chong catheter was placed by nursing staff, atraumatically. Once confirmation of lines and ventilation the patient was transferred to a prone Gomez table very carefully. All bony prominences including wrists, elbows, axilla, chest, hips, and thighs, and feet were padded very well. Special attention was paid to the genitalia and these were padded accordingly. SCDs were placed on bilateral lower extremities and were connected. Arms were well padded and placed on arm boards up and out in the 90/90 position. Once in position, again we confirmed good ventilation capabilities and that lines were running appropriately. The patient's lumbar spine was then exposed. 1010s were placed outlining the incision site. Standard alcohol was used to clean the incision site and allowed to dry. C-arm was used to biomark the patient and confirm level for incision which was marked with a skin marker. Operative briefing was performed with all teams and everyone in agreement to proceed. The patient was then prepped and draped in a normal sterile fashion. Timeout was then performed and all parties were in agreement with the procedure to be performed. Skin incision was made over the previous supine marked area and dissection taken down with electrocautery until the lumbar fascia was identified once identified was cleaned with a Feliciano. Midline fasciotomy was then made subperiosteal dissection taken down of the lamina facet joints and transverse processes of L3 L5 lateral fluoroscopic imaging confirmed levels. Once dissection was complete we then proceeded with screw placement screws were then placed under lateral fluoroscopic guidance using a high-speed bur followed by a pedicle finder feeler and tap. The screw was then placed under fluoroscopic guidance and this was repeated at L3 through L5 bilaterally. Once screws were placed they were then tested with intraoperative neuro monitoring and all screws tested above 20 mA. Once screws were positioned and confirmed again on AP and lateral fluoroscopy the area in good position. We then proceeded with decompression. Starting at L3-L4 and performed bilateral laminectomies for complete facetectomy and foraminotomies. This allowed us access as well as decompression into the foramen on the left-hand side. All protecting the nerve root and the dura we accessed the disc space with the osteotome followed by sequential kyleigh down biting curette bear claws. We were able to clean out the disc in this area and performed discectomy. Its week confirm decortication as well as good bleeding bone we packed autograft into the anterior portion along with allograft. Cages then selected and impacted into place while protecting the nerve root and the dura completely. Once cages impacted it was expanded and expanded entirely to the desired height. We then backfilled the cage DBM and autograft. Then performed meticulous hemostasis from the area with FloSeal and patties. We irrigated out the wound is point. Then turned our attention to the L4-L5 area were performed bilateral laminectomy complete facetectomy and foraminotomy L4-L5 which allowed us access to the disc space the left-hand side. While protecting the nerve root and the dura we accessed the disc spaces osteotome followed by a sequential kyleigh down biting curettes pituitary to remove the disc material were then decorticated the endplates and ensured good bleeding bone along with bear claws. We then placed autograft and allograft anterior in the disc space the cage was then selected and packed into place this is an expanded to desired height. Then backfilled the cage with DBM. Then copiously irrigated the wound with normal sterile saline. Rods were then selected and sized there were then placed and set screws final tightened into position which allowed for reduction of the spondylolisthesis as well as distraction for extra foraminal height. We have performed bilateral posterior lateral decortication of transverse processes were then packed autograft allograft and DBM in the posterior lateral gutters. The dura was then inspected completely intact with no injury. We then placed Surgicel over the dura. We then placed a cross-link in the area. This was final tightened. Final images confirmed good placement could be good decompression as well as reduction. We then placed a drain deep to the fascia. We then placed vancomycin 2 g within the wound. I would then performed a layered closure versus fascia #1 Vicryl followed by the subcu tissue with 0 Vicryl followed by superficial subcu tissue 2-0 Vicryl and skin miguelito. The wound was then cleaned and dressed sterilely with an operative foam dressing as well as a drain sponge and Tegaderm. The patient was transferred back to their hospital bed atraumatically. Drain continued to hold suction and were in good position. Patient was then awakened and extubated by the department of anesthesia having tolerated the procedure very well with no complications. They were transferred to the postoperative care unit in stable condition.
== END 2021-12-02 13:25 | disposition home health service (06) | DRG 460 ==
LOC: 2ORMAIN 11-29 10:24 → 5NMEDONC 11-29 19:02
PROVIDERS: ADMIT Orthopaedic Surgery; ATTEND Orthopaedic Surgery
PROC: 01NB0ZZ Release Lumbar Nerve, Open Approach (ICD-10-PCS; 2021-11-29)
PROC: 0SB20ZZ Excision of Lumbar Vertebral Disc, Open Approach (ICD-10-PCS; 2021-11-29)
PROC: 0SG10AJ Fusion of 2 or more Lumbar Vertebral Joints with Interbody Fusion Device, Posterior Approach, Anterior Column, Open Approach (ICD-10-PCS; principal; 2021-11-29 12:00)
DX: M48.062 Spinal stenosis, lumbar region with neurogenic claudication (principal); M47.16 Other spondylosis with myelopathy, lumbar region; M43.16 Spondylolisthesis, lumbar region; D46.9 Myelodysplastic syndrome, unspecified; E78.5 Hyperlipidemia, unspecified; I10 Essential (primary) hypertension; Z20.822 Contact with and (suspected) exposure to COVID-19; M54.10 Radiculopathy, site unspecified; N40.0 Benign prostatic hyperplasia without lower urinary tract symptoms; Z79.899 Other long term (current) drug therapy; Z87.891 Personal history of nicotine dependence; Z98.1 Arthrodesis status
CPT/HCPCS: 72100; 72131; 80048; 85025; 86850; 86900; 86901; 87635

== ENCOUNTER 2022-09-04 09:22 | Day surgery (SDC) | payer MEDICARE ==
--- NOTE | 2022-09-04 09:12 | P.GSHP ---
History of Present Illness H&P Date: 09/04/22 CHIEF COMPLAINT: Colon screen HISTORY OF PRESENT ILLNESS: The patient is a 76-year-old male who presents for colon screen. Lower endoscopy was offered for further evaluation and management. PAST MEDICAL HISTORY: Please see list. PAST SURGICAL HISTORY: Please see list. MEDICATIONS: Please see list. ALLERGIES: Please see list. SOCIAL HISTORY: No illicit drug use FAMILY HISTORY: No reports of Crohn disease or ulcerative colitis. REVIEW OF ORGAN SYSTEMS: CONSTITUTIONAL: No reports of fevers or chills. PHYSICAL EXAM: VITAL SIGNS: Stable GENERAL: Well-developed pleasant in no acute distress. HEENT: No scleral icterus. Extraocular movements grossly intact. Moist buccal mucosa. NECK: Supple without lymphadenopathy. CHEST: Unlabored respirations. Equal bilateral excursions. CARDIOVASCULAR: Regular rate and rhythm. Distal 2+ pulses. ABDOMEN: Soft, nontender, nondistended. MUSCULOSKELETAL: No clubbing, cyanosis, or edema. ASSESSMENT: 1. Colon screen. PLAN: 1. Recommend proceeding with a lower endoscopy Past Medical History Past Medical History: Hyperlipidemia, Hypertension, Osteoarthritis (OA), Prostate Disorder Additional Past Medical History / Comment(s): Enlarged Prostate. + Cologard History of Any Multi-Drug Resistant Organisms: None Reported Past Surgical History: Back Surgery, Tonsillectomy Additional Past Surgical History / Comment(s): cervical and lumbar surgery with hardware. Past Anesthesia/Blood Transfusion Reactions: No Reported Reaction Additional Past Anesthesia/Blood Transfusion Reaction / Comment(s): no blood transfusions Smoking Status: Former smoker - Past Family History Father Family Medical History: Cancer Mother Family Medical History: Coronary Artery Disease (CAD) Additional Family Medical History / Comment(s): blood clot , of stroke Medications and Allergies Home Medications Medication Instructions Recorded Confirmed Type Cholecalciferol [Vitamin D3 (25 25 mcg PO DAILY 07/06/21 08/30/22 History Mcg = 1000 Iu)] DULoxetine HCL [Cymbalta] 60 mg PO DAILY 07/06/21 08/30/22 History Ezetimibe [Zetia] 10 mg PO DAILY 07/06/21 08/30/22 History Ibuprofen [Motrin] 800 mg PO Q8H PRN 07/06/21 08/30/22 History Pravastatin Sodium [Pravachol] 10 mg PO HS 07/06/21 08/30/22 History Tamsulosin [Flomax] 0.4 mg PO HS 07/06/21 08/30/22 History amLODIPine [Norvasc] 10 mg PO QAM 07/06/21 08/30/22 History traMADol HCL 50 mg PO TID PRN 07/06/21 08/30/22 History Psyllium Husk [Metamucil] 0.4 gm PO DAILY PRN 11/28/21 08/30/22 History Allergies Allergy/AdvReac Type Severity Reaction Status Date / Time codeine AdvReac Nausea & Verified 09/02/22 10:22 Vomiting
[~2022-09-04 09:22] MED LIST: LACTATED RINGERS 1,000 ML IV SCH; LIDOCAINE 1% (10MG/ML) FOR IV START INTRADERMA PRN
[2022-09-04 09:56] VITALS: TEMP 98.4
[2022-09-04] MEDS ORDERED: PROPOFOL 10 MG/ML 20 ML VIAL IV ONE (10:42)
[2022-09-04 11:18] VITALS: RESP 16
[2022-09-04 11:43] VITALS: BP 138/79; PULSE 60
--- NOTE | 2022-09-04 21:35 | P.PCN ---
Date of Procedure: 09/04/22 Description of Procedure: PREOPERATIVE DIAGNOSIS: Personal history of colon polyps Colonoscopy screening POSTOPERATIVE DIAGNOSIS: Tubular adenoma cecum Tubular adenoma transverse colon Tubular adenoma descending colon Sigmoid diverticulosis Internal hemorrhoids, grade 2 OPERATION: Colonoscopy to the ileocecal valve and appendiceal orifice, cecum Colonoscopy with hot snare polypectomy SURGEON: Tricia Merlos MD. ANESTHESIA: MAC. INDICATIONS: The patient is an 76-year-old male who presents personal history of colon polyps. Last colonoscopy 5 years. Benefits and risks were described and informed consent was obtained. DESCRIPTION OF PROCEDURE: The patient had undergone Sutab prep. The patient had been brought into the operating room and laid in the left lateral decubitus position. After adequate intravenous sedation, the rectum was examined with 2% lidocaine jelly. The prostate was unremarkable. External hemorrhoids were encountered. The rectal tone was within normal limits. No lesions were palpated in the rectal vault. An Olympus colonoscope was advanced until the cecum, ileocecal valve and appendiceal orifice were clearly viewed. The prep was excellent. Sigmoid diverticulosis was encountered. Colonic polyps were found and removed. No evidence of focal colitis was found. Retroflexion of the scope demonstrated grade 2 internal hemorrhoids without active bleeding or inflammation. The colon was desufflated. The patient had tolerated the procedure well. Withdrawal time was over 6 minutes. FINDINGS: Aronchick preparation quality scale 1 (1-5) Internal hemorrhoids, grade 1 with recent inflammation and bleeding External hemorrhoids, grade 2 No arteriovenous malformations. Sigmoid diverticulosis Removal of 3 polyps: - Snare polypectomy at cecum, 8 mm tubulovillous adenoma polyp. - Snare polypectomy at mid-transverse colon, 12 mm flat villous adenoma polyp. - Snare polypectomy at 30 cm, 8 mm flat villous adenoma polyp, descending colon No focal colitis. RECOMMENDATIONS: Given severity of tubular adenomas, recommend repeat colonoscopy 3 years, 2024 Plan - Discharge Summary Discharge Rx Participant: No New Discharge Prescriptions: Continue Tamsulosin [Flomax] 0.4 mg PO HS Ibuprofen [Motrin] 800 mg PO Q8H PRN PRN Reason: Pain DULoxetine HCL [Cymbalta] 60 mg PO DAILY traMADol HCL 50 mg PO TID PRN PRN Reason: Pain Cholecalciferol [Vitamin D3 (25 Mcg = 1000 Iu)] 25 mcg PO DAILY amLODIPine [Norvasc] 10 mg PO QAM Pravastatin Sodium [Pravachol] 10 mg PO HS Ezetimibe [Zetia] 10 mg PO DAILY Discharge Medication List Cholecalciferol [Vitamin D3 (25 Mcg = 1000 Iu)] 25 mcg PO DAILY 07/06/21 [History] DULoxetine HCL [Cymbalta] 60 mg PO DAILY 07/06/21 [History] Ezetimibe [Zetia] 10 mg PO DAILY 07/06/21 [History] Ibuprofen [Motrin] 800 mg PO Q8H PRN 07/06/21 [History] Pravastatin Sodium [Pravachol] 10 mg PO HS 07/06/21 [History] Tamsulosin [Flomax] 0.4 mg PO HS 07/06/21 [History] amLODIPine [Norvasc] 10 mg PO QAM 07/06/21 [History] traMADol HCL 50 mg PO TID PRN 07/06/21 [History] Follow up Appointment(s)/Referral(s): Tricia Merlos MD [STAFF PHYSICIAN] - As Needed Patient Instructions/Handouts: *[facility] - (Anesthesia) Endoscopy Discharge Instructions, Colorectal Polyps (GEN) Activity/Diet/Wound Care/Special Instructions: Repeat colonoscopy 3 years, 2024 Discharge Disposition: HOME SELF-CARE
== END 2022-09-04 12:56 | disposition home or self-care (01) ==
LOC: ORWHC2ENDO 09:22
PROVIDERS: ATTEND Surgery Plastic and Reconstructive Surgery
DX: Z12.11 Encounter for screening for malignant neoplasm of colon (principal); D12.0 Benign neoplasm of cecum; D12.3 Benign neoplasm of transverse colon; D12.4 Benign neoplasm of descending colon; K57.30 Diverticulosis of large intestine without perforation or abscess without bleeding; K64.1 Second degree hemorrhoids; E78.5 Hyperlipidemia, unspecified; I10 Essential (primary) hypertension; M19.90 Unspecified osteoarthritis, unspecified site; Z87.891 Personal history of nicotine dependence; Z79.1 Long term (current) use of non-steroidal anti-inflammatories (NSAID); Z87.19 Personal history of other diseases of the digestive system
CPT/HCPCS: 88305; 45385; J2704

== ENCOUNTER → 2023-02-12 | Outpatient (CLI) | payer MEDICARE ==
--- NOTE | 2023-02-12 12:23 | US ---
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 Hx hypertension, hyperlipidemia. TECHNIQUE: Carotid duplex ultrasound examination. Indirect Doppler criteria was utilized. 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 No elevated velocities at this time. Grayscale images show at least moderate shadowing plaque bilaterally more prominent on the right but velocity measurements and ratios remain within normal limits bilaterally IMPRESSION: No hemodynamically significant stenosis in either internal carotid artery. Criteria for Assigning % of Stenosis / Diameter reduction (Estimation based on the indirect measurements of the internal carotid artery velocities (ICA PSV). 1. Normal (no stenosis)=ICA PSV < 125 cm/s: ratio < 2.0: ICA EDV<40 cm/s. 2. Less than 50% stenosis=ICA PSV < 125 cm/s: ratio < 2.0: ICA EDV<40 cm/s. 3. 50 to 69% stenosis=ICA PSV of 125 to 230 cm/s: ration 2.0 ? 4.0: ICA EDV 40-100 cm/s. 4. Greater than 70% stenosis to near occlusion= ICA PSV > 230 cm/s: ratio > 4.0: ICA EDV > 100 cm/s. 5. Near occlusion= ICA PSV velocities may be low or undetectable: variable ratio and ICA EDV. 6. Total occlusion=unable to detect flow.
== END | disposition home or self-care (01) ==
LOC: RADUSWWP 11:01
PROVIDERS: ATTEND Internal Medicine
DX: Z13.6 Encounter for screening for cardiovascular disorders (principal); I65.23 Occlusion and stenosis of bilateral carotid arteries; I10 Essential (primary) hypertension; E78.5 Hyperlipidemia, unspecified
CPT/HCPCS: 93880

== ENCOUNTER → 2024-08-17 | Outpatient (CLI) | payer MEDICARE ==
--- NOTE | 2024-08-17 13:01 | US ---
EXAMINATION TYPE: US carotid duplex BILAT DATE OF EXAM: 08/17/2024 COMPARISON: US 02/12/23 CLINICAL INDICATION: Male, 78 years old with history of I65.23 ATEROSCLEROSIS CAROTID ARTERIES; Hx hy pertension, hyperlipidemia, prior smoker. TECHNIQUE: Grayscale, color Doppler and spectral Doppler evaluation of the bilateral carotid systems and vertebral arteries.Indirect Doppler criteria was utilized. FINDINGS: EXAM MEASUREMENTS: RIGHT: Peak Systolic Velocity (PSV) cm/sec ----- Right CCA: 90.9 ----- Right ICA: 104 ----- Right ECA: 138 ICA/CCA ratio: 1.14 RIGHT: End Diastole cm/sec ----- Right CCA: 20.2 ----- Right ICA: 21.4 ----- Right ECA: 19.9 LEFT: Peak Systolic Velocity (PSV) cm/sec ----- Left CCA: 98.2 ----- Left ICA: 72.2 ----- Left ECA: 116 ICA/CCA ratio: 0.74 LEFT: End Diastole cm/sec ----- Left CCA: 19.5 ----- Left ICA: 15.1 ----- Left ECA: 16.1 VERTEBRALS (direction of flow): Right Vertebral: Antegrade Left Vertebral: Antegrade Rhythm: Normal AMMONIA TECHNICIAN NOTES: Shadowing plaque seen within bilateral bulbs. Elevated velocity within right ECA . *Hypoechoic area seen left neck adjacent to carotid: 1.6 x 1.5 x 0.5 cm. IMPRESSION: Right: 50-69% stenosis of the carotid bifurcation. 50 to 69% stenosis=ICA PSV of 125 to 230 cm/s: ration 2.0 - 4.0: ICA EDV 40-100 cm/s. Left: 50-69% stenosis of the carotid bifurcation. 50 to 69% stenosis=ICA PSV of 125 to 230 cm/s: ration 2.0 - 4.0: ICA EDV 40-100 cm/s. Criteria for Assigning % of Stenosis / Diameter reduction (Estimation based on the indirect measurements of the internal carotid artery velocities (ICA PSV). 1. Normal (no stenosis)=ICA PSV < 125 cm/s: ratio < 2.0: ICA EDV<40 cm/s. 2. Less than 50% stenosis=ICA PSV < 125 cm/s: ratio < 2.0: ICA EDV<40 cm/s. 3. 50 to 69% stenosis=ICA PSV of 125 to 230 cm/s: ration 2.0 ? 4.0: ICA EDV 40-100 cm/s. 4. Greater than 70% stenosis to near occlusion= ICA PSV > 230 cm/s: ratio > 4.0: ICA EDV > 100 cm/s. 5. Near occlusion= ICA PSV velocities may be low or undetectable: variable ratio and ICA EDV. 6. Total occlusion=unable to detect flow. [facility], , 08/17/2024 12:58 PM
== END | disposition home or self-care (01) ==
LOC: RADUSWWP 12:23
PROVIDERS: ATTEND Internal Medicine
CPT/HCPCS: 93880